=== PATIENT | male | born 1955 | race Caucasian/White ===

== ENCOUNTER 2017-07-07 09:45 | Outpatient (CLI) | payer OTHER ==
[2017-07-07] MEDS ORDERED: Iopamidol 370 76% 100 ML VIAL ONE (11:59)
== END 2017-07-07 09:46 | disposition home or self-care (01) ==
LOC: BICCT 09:45
PROVIDERS: ATTEND Obstetrics & Gynecology
DX: I71.9 Aortic aneurysm of unspecified site, without rupture (principal); I71.4 Abdominal aortic aneurysm, without rupture; I74.3 Embolism and thrombosis of arteries of the lower extremities; I70.8 Atherosclerosis of other arteries
CPT/HCPCS: 75635

== ENCOUNTER 2017-10-19 12:06 | Outpatient (CLI) | payer OTHER ==
[2017-10-19 13:08] LABS: Hemoglobin 17.3 g/dL (14.0-18.0); Mean Corpuscular HGB CONC 34.9 g/dL (32.0-36.0); Mean Corpuscular Hemoglobin 32.5 pg (27.0-31.0); Mean Corpuscular Volume 93.2 fL (78.0-98.0); Mean Platelet Volume 8.3 fL (7.4-10.4); Platelet Count 223 thou/uL (130-400); Red Blood Cell (RBC) Count 5.33 mill/uL (4.70-6.10); White Blood Cell (WBC) Count 10.4 thou/uL (4.8-10.8)
[2017-10-19 13:32] LABS: Anion Gap 12 mmol/L (10-20); BUN (Urea Nitrogen) 13 mg/dL (8.4-25.7); Calc. Creatinine Clearance 0 mL/min (70-130); Calcium 9.2 mg/dL (7.8-10.44); Carbon Dioxide 27 mmol/L (23-31); Chloride 104 mmol/L (98-107); Estimated GFR-MDRD Greater than 90; Glucose 132 mg/dL (80-115); Potassium 4.2 mmol/L (3.5-5.1); Sodium 139 mmol/L (136-145)
--- NOTE | 2017-10-20 12:06 | EKG ---
Test Reason : Blood Pressure : / mmHG Vent. Rate : 069 BPM Atrial Rate : 069 BPM P-R Int : 188 ms QRS Dur : 082 ms QT Int : 392 ms P-R-T Axes : 074 077 087 degrees QTc Int : 420 ms Poor data quality, interpretation may be adversely affected Normal sinus rhythm Possible Anterior infarct , age undetermined Abnormal ECG No previous ECGs available Confirmed by PRANEETH PRADO ([id number]) on 10/20/2017 12:05:36 PM Referred By: TIAGO Confirmed By:PRANEETH PRADO
== END 2017-10-19 12:07 | disposition home or self-care (01) ==
LOC: LABBT 12:06
PROVIDERS: ATTEND Thoracic Surgery (Cardiothoracic Vascular Surgery)
DX: Z01.818 Encounter for other preprocedural examination (principal); I71.4 Abdominal aortic aneurysm, without rupture
CPT/HCPCS: 80048; 85027; 86850; 86900; 86901; 93005; 93010

== ENCOUNTER 2017-10-20 07:27 | Inpatient (IN) | payer OTHER ==
[2017-10-20] MEDS ORDERED: CEFAZOLIN/Water 2 GM/20 ML SYRINGE ONE (09:38)
[2017-10-20] MEDS ORDERED: Heparin 10,000 UNITS/1 ML VIAL ONE (09:46)
[2017-10-20] MEDS ORDERED: Protamine Sulfate 50 MG/5 ML VIAL ONE (09:46)
[2017-10-20] MEDS ORDERED: Phenylephrine HCL 10 MG/ML VIAL ONE (09:47)
[2017-10-20] MEDS ORDERED: Fentanyl 250 MCG/5 ML VIAL ONE (09:47)
[2017-10-20] MEDS ORDERED: SUGAMMADEX SODIUM 200 MG/2 ML VIAL ONE (11:52)
[2017-10-20] MEDS ORDERED: Morphine Sulfate 2 MG/ML SYRINGE SLOW IVP PRN (12:29)
[2017-10-20] MEDS ORDERED: Ondansetron HCl/PF 4 MG/2 ML Vial IVP PRN ×2 (12:29→15:57)
[2017-10-20] MEDS ORDERED: Promethazine HCl 25 MG/ML VIAL SLOW IVP PRN (12:29)
[2017-10-20] MEDS ORDERED: Promethazine HCl 25 MG/ML VIAL IM PRN ×2 (12:29→15:57)
--- NOTE | 2017-10-20 12:42 | OP ---
DATE OF PROCEDURE: 10/20/2017 PREOPERATIVE DIAGNOSIS: Abdominal aortic aneurysm. POSTOPERATIVE DIAGNOSIS: Abdominal aortic aneurysm. PROCEDURE: Endovascular aneurysm repair with Medtronic 2-piece device with a main body left 28 x 20 x 166 and a right limb 16 x 20 x 124. SURGEON: Jose Garber M.D. PATTERN ATTENDANT: Dr. Alcantara. ESTIMATED BLOOD LOSS: 100. PROCEDURE IN DETAIL: After adequate anesthesia had been obtained, the patient was prepped and draped . Ultrasound guided puncture of the right and then left common femoral arteries were accomplished an d 5-Greek dilator and sheath were placed. Following this, the right side had ProGlides x2 placed. On the left side, initial ProGlide did not slide easily over the wire and for this reason the 5-Frenc h dilator and sheath were replaced and an Amplatz wire was placed over a Littleton catheter. Following is, the first ProGlide then was advanced over this wire. It was deployed and the Bentson wire replac ed and the second ProGlide deployed over the Bentson wire. Following this, an 11-Greek sheath was p laced on the left and on the right, the 12-Greek sheath was advanced into the abdominal aorta after heparinization with 10,000 units of heparin and good ACT level. Angiography was then obtained on the left side following which the main body was deployed just below the renal arteries. Waka was then c annulated from the right and the second limb placed. Following this, the limbs were ballooned and co mpletion angiography showed no endoleak with good renal and bilateral iliac perfusion. Following s, stiff wires were replaced with Lazo wires. On the right, ProGlide was then deployed over the wi re and after good hemostasis, the wire was removed and both ProGlides on the right deployed. On the left side, the second ProGlide was not engaged and for this reason, a third ProGlide was placed follo wing which there was good hemostasis and the ProGlides were deployed. Heparin was partially reversed with protamine and the patient had good color in both feet at the conclusion of the procedure and palma s to be taken to the recovery room with fluoroscopy of 11 minutes and 52 seconds and contrast of 54 m L.
[2017-10-20] MEDS ORDERED: SODIUM CHLORIDE IVPB SCH (12:45)
[2017-10-20] MEDS ORDERED: NICARDIPINE HCL IVPB SCH (12:45)
[2017-10-20] MEDS ORDERED: ADMIXTURE FEE IVPB SCH (12:45)
[2017-10-20] MEDS ORDERED: Fentanyl 100 MCG/2 ML VIAL ONE (13:55)
[2017-10-20] MEDS ORDERED: PROPOFOL 200 MG/20 ML VIAL ONE (14:00)
[2017-10-20] MEDS ORDERED: Heparin 10,000 UNITS/ 10 ML VIAL ONE (14:00)
[2017-10-20] MEDS ORDERED: Lidocaine 1% PF 5 ML VIAL ONE (14:00)
[2017-10-20] MEDS ORDERED: PHENYLEPHRINE-NS 100 MCG/ML 10 ML SYRINGE ONE (14:00)
[2017-10-20] MEDS ORDERED: Ondansetron HCl/PF 4 MG/2 ML Vial ONE (14:00)
[2017-10-20] MEDS ORDERED: Dextrose 5% in Water 1,000 ML IV PRN (15:57)
[2017-10-20] MEDS ORDERED: Dextrose 50% Abboject 50 ML SYRINGE SLOW IVP PRN (15:57)
[2017-10-20] MEDS ORDERED: HYDROcodone/Acetaminophen 5/325 mg Tablet PO PRN (15:57)
[2017-10-20] MEDS ORDERED: Phenylephrine 10 MG/NS 250 ML 250 ML IVPB PRN (15:57)
[2017-10-20] MEDS ORDERED: Fentanyl 100 MCG/2 ML VIAL SLOW IVP PRN ×2 (15:57)
[2017-10-20] MEDS ORDERED: Acetaminophen 325 MG TAB PO PRN (15:57)
[2017-10-20] MEDS ORDERED: Insulin Regular 300 UNITS/3 ML VIAL SC PRN (15:57)
[2017-10-20] MEDS ORDERED: niCARdipine HCl 25 MG in Sodium Chloride 0.9% 250 ML 240 ML IVPB PRN (15:57)
[2017-10-20 16:18] VITALS: BMI 26.8
[2017-10-20] MEDS ORDERED: Amlodipine 5 MG TAB PO SCH (16:45)
[2017-10-20 17:22] VITALS: BP 130/53
[2017-10-20] MEDS: Sodium Chloride 0.9% 1,000 ML IV SCH (17:22)
[2017-10-20] MEDS: HYDROcodone/Acetaminophen 5/325 mg Tablet PO PRN (18:09)
[2017-10-20] MEDS ORDERED: Atorvastatin Calcium 20 MG TAB PO SCH (21:00)
[2017-10-20] MEDS: CEFAZOLIN/Water 2 GM/20 ML SYRINGE SLOW IVP SCH (21:19)
[2017-10-20] MEDS: Pregabalin 75 MG CAP PO SCH (21:19)
[2017-10-21] MEDS: HYDROcodone/Acetaminophen 5/325 mg Tablet PO PRN (01:09)
[2017-10-21 03:51] LABS: #Basophils 0.1 thou/uL (0.0-0.2); #Lymphocytes 1.6 thou/uL (1.20-3.40); #Monocytes 1.2 thou/uL (0.11-0.59); #Neutrophils 14.1 thou/uL (1.40-6.50); %Basophils 0.3 % (0.0-1.0); %Eosinophils 0.2 % (0.0-10.0); %Lymphocytes 9.3 % (21.0-51.0); %Monocytes 7.2 % (0.0-10.0); %Neutrophils 82.9 % (42.0-75.0); Mean Corpuscular HGB CONC 33.5 g/dL (32.0-36.0); Mean Corpuscular Hemoglobin 31.8 pg (27.0-31.0); Mean Corpuscular Volume 94.7 fL (78.0-98.0); Mean Platelet Volume 8.6 fL (7.4-10.4); Platelet Count 172 thou/uL (130-400); RBC Distribution Width 12.1 % (11.5-14.5); Red Blood Cell (RBC) Count 4.42 mill/uL (4.70-6.10)
[2017-10-21 04:05] LABS: Anion Gap 12 mmol/L (10-20); BUN (Urea Nitrogen) 18 mg/dL (8.4-25.7); Calc. Creatinine Clearance 139 mL/min (70-130); Calcium 8.1 mg/dL (7.8-10.44); Carbon Dioxide 23 mmol/L (23-31); Chloride 105 mmol/L (98-107); Estimated GFR-MDRD Greater than 90; Glucose 192 mg/dL (80-115); Potassium 4.1 mmol/L (3.5-5.1); Sodium 136 mmol/L (136-145)
[2017-10-21] MEDS: Sodium Chloride 0.9% 1,000 ML IV SCH (04:42)
[2017-10-21] MEDS: CEFAZOLIN/Water 2 GM/20 ML SYRINGE SLOW IVP SCH (05:40)
[2017-10-21] MEDS ORDERED: glipiZIDE 5 MG TAB PO SCH (07:30)
[2017-10-21] MEDS: Pregabalin 75 MG CAP PO SCH (07:58)
[2017-10-21] MEDS ORDERED: Lisinopril 10 MG TAB PO SCH (09:00)
[2017-10-21 09:48] VITALS: TEMP 99
--- NOTE | 2017-10-21 12:06 | DIS ---
The patient was admitted on 10/20 where he underwent an endovascular aneurysm repair with Medtronic d evice using a main body 28 x 20 x 165 and limb 16 x 21 x 24. He had a percutaneous access and on pos t-procedure had some mild hypertension, controlled with nicardipine. He had productive cough related to his chronic smoking history and he was counseled on smoking cessation, but mostly just left it of f. His incisions were doing well and he will be discharged home on his admitting medicines. He comp lains of chronic low back pain for which he is being medicated by Dr. Delaney. Discharge and follow up instructions have been given.
== END 2017-10-21 08:30 | disposition home or self-care (01) | DRG 269 ==
LOC: EDSTATUS 08:41 → SURG A 08:43 → CCU 14:41
PROVIDERS: ADMIT Thoracic Surgery (Cardiothoracic Vascular Surgery); ATTEND Thoracic Surgery (Cardiothoracic Vascular Surgery)
PROC: 04V03DZ Restriction of Abdominal Aorta with Intraluminal Device, Percutaneous Approach (ICD-10-PCS; principal; 2017-10-20)
DX: I71.4 Abdominal aortic aneurysm, without rupture (principal)
CPT/HCPCS: 36415; 36416; 76001; 80048; 85025; 85027; 86850; 86900; 86901; 90471; 90732; 93005; 93010; 96374; C1726; C1760; C1762; C1769; C1894; G0009; J1642; J1644; J1815; J2001; J2370; J2405; J2704; J2720; J3010; J7050

== ENCOUNTER 2018-01-17 08:47 | Outpatient (CLI) | payer OTHER ==
[2018-01-17 09:12] LABS: Estimated GFR-MDRD - POC Greater than 90
[2018-01-17] MEDS ORDERED: ISOVUE-370 76%-LOCM 1 ML ONE (10:42)
--- NOTE | 2018-01-17 11:42 | CT ---
CT ABDOMEN AND PELVIS WITHOUT CONTRAST CT ANGIOGRAM ABDOMEN AND PELVIS WITH CONTRAST: HISTORY: Aneurysm repair. COMPARISON: CTA of 07/07/2017. FINDINGS: There has been interval endovascular repair of the aortic aneurysm. Using the plane of reference, th e excluded aneurysm sac measures up to 4.7 cm in AP dimension, unchanged from the comparison examinat ion. The craniocaudad length is also similar. No significant increase in size of the aneurysm. Iliac arteries are dilated, similar. No focal occlusion of the external or common iliac arteries. The renal artery origins are patent as well as the superior mesenteric artery and celiac arteries. T he liver, gallbladder, spleen, pancreas, and adrenal glands are unremarkable. The skeleton is unremarkable. Severe degenerative disk space disease at L4-5with circumferential dis k-osteophyte complex causing moderate neural foraminal and spinal canal narrowing. The same is true at L5-S1. IMPRESSION: No evidence of endoleak. No change in size of the abdominal aortic aneurysmal post repair. POS: [facility]
== END 2018-01-17 08:48 | disposition home or self-care (01) ==
LOC: BICCT 08:47
PROVIDERS: ATTEND Thoracic Surgery (Cardiothoracic Vascular Surgery)
DX: I71.4 Abdominal aortic aneurysm, without rupture (principal)
CPT/HCPCS: 74174; 82565

== ENCOUNTER 2019-03-05 18:46 | Inpatient (IN) | payer OTHER ==
[~2019-03-05 18:46] MED LIST: Iopamidol-370 76% 500 ML 1 ML ONE
[2019-03-05 19:11] LABS: #Basophils 0.1 thou/uL (0.0-0.2); #Eosinphils 0.2 thou/uL (0.0-0.7); #Lymphocytes 1.5 thou/uL (1.20-3.40); #Monocytes 0.9 thou/uL (0.11-0.59); #Neutrophils 8.5 thou/uL (1.40-6.50); %Basophils 0.6 % (0.0-1.0); %Eosinophils 2.1 % (0.0-10.0); %Lymphocytes 13.1 % (21.0-51.0); %Monocytes 8.4 % (0.0-10.0); %Neutrophils 75.9 % (42.0-75.0); Hemoglobin 15.8 g/dL (14.0-18.0); Mean Corpuscular Volume 94.1 fL (78.0-98.0); Mean Platelet Volume 8.1 fL (7.4-10.4); Platelet Count 326 thou/uL (130-400); RBC Distribution Width 12.2 % (11.5-14.5); Red Blood Cell (RBC) Count 4.95 mill/uL (4.70-6.10); White Blood Cell (WBC) Count 11.2 thou/uL (4.8-10.8)
[2019-03-05] MEDS ORDERED: methylPREDNISolone Sod Succ/PF 125 MG/2 ML VIAL ONE (19:32)
[2019-03-05 19:35] LABS: ALT (SGPT) 37 U/L (8-55); AST (SGOT) 34 U/L (5-34); Albumin 3.9 g/dL (3.4-4.8); Alkaline Phosphatase 95 U/L (40-110); Anion Gap 16 mmol/L (10-20); BUN (Urea Nitrogen) 16 mg/dL (8.4-25.7); Bilirubin, Total 0.5 mg/dL (0.2-1.2); Calc. Creatinine Clearance 0 mL/min (70-130); Calcium 8.8 mg/dL (7.8-10.44); Carbon Dioxide 27 mmol/L (23-31); Chloride 99 mmol/L (98-107); Estimated GFR-MDRD Greater than 90; Globulin 3.3 g/dL (2.4-3.5); Glucose 211 mg/dL (80-115); Potassium 4.8 mmol/L (3.5-5.1); Protein, Total 7.2 g/dL (5.8-8.1); Sodium 137 mmol/L (136-145)
[2019-03-05 20:09] LABS: CKMB 7.5 ng/mL (0-6.6)
--- NOTE | 2019-03-05 20:12 | RAD ---
FRONTAL RADIOGRAPH CHEST: Date: 03-05-19 Comparison: None. History: Shortness of breath FINDINGS: There is increased linear interstitial density and pulmonary hyperinflation suggesting COPD in the pr oper clinical setting. Cardiac silhouette is prominent. No lobar consolidation or alveolar edema. There is an asymmetric hazy area of increased density in the lateral aspect of the right upper lobe. IMPRESSION: Interstitial prominence and pulmonary hyperinflation suggesting COPD in the proper clinical setting. Vague asymmetric area of increased density noted and this may reflect scar, volume loss, or underlyin g nodule. Recommend follow up nonemergent chest CT for full assessment. Code T POS: [facility]
[2019-03-05] MEDS ORDERED: Aspirin Chewable 81 MG TAB ONE (20:13)
[2019-03-05] MEDS ORDERED: Nitroglycerin 2% Ointment 1 INCH/1 GM Packet ONE (20:13)
[2019-03-05 20:21] LABS: Magnesium 1.8 mg/dL (1.6-2.6)
--- NOTE | 2019-03-05 20:39 | CT ---
CT angiogram chest: 03/05/2019 COMPARISON: None HISTORY: Chest pain, assess for pulmonary arterial embolism TECHNIQUE: Axial CT imaging at 2.5 mm intervals through the chest with IV contrast using CT angiogram protocol. Coronal and oblique sagittal 3-D reformatted imaging obtained. FINDINGS: There is no axillary lymphadenopathy noted. Mildly prominent prevascular lymph nodes are noted measuring up to 8 mm. Mildly enlarged subcarinal l ymph node measures 1.4 cm in short axis dimension. Mild right hilar adenopathy is suspected. Limited assessment of the upper abdomen demonstrates atherosclerotic calcification of the imaged abdo marilyn aorta. There is a small right pleural effusion. No left pleural effusion. Scattered coronary arterial calcif ication is noted. There is no pulmonary arterial filling defects seen to suggest the presence of acute pulmonary arteri al embolism. There is a cavitary lesion within the right upper lobe laterally with a nodular peripheral margin. Th is cavitary lesion within the right upper lobe measures 3.3 x 2.7 cm. There is a small right upper lobe pulmonary nodule on image 42 measuring 6 mm. There is a focal area of groundglass opacity within the anterior aspect of the right upper lobe, best seen on image 56. There is increased linear interstitial density with focal anterior inferior pulmonary parenchymal opacity within the right midd le lobe which may be inflammatory in nature. There is a nodule within the posterior aspect of the right upper lobe on axial image 55 measuring 9 mm. There are pulmonary nodules within the left upper lobe, including a nodule on image 35 measuring 1.1 cm and a nodule on image 45 measuring 1.1 cm. Review of the osseous structures demonstrates no worrisome lytic or blastic bone lesion. IMPRESSION: No evidence for pulmonary arterial embolism. Irregular cavitary lesion within the right u pper lobe, which may represent cavitary malignancy. Cavitary infectious process, including tuberculosis cannot be excluded but the presence of additional bilateral pulmonary nodules makes susp icion for malignancy much higher. Small right pleural effusion. Dr. Dominguez made aware at 8:35 PM 03/05/2019. Pulmonary consultation and consideration for follow-up PET scan suggested.
[2019-03-05] MEDS ORDERED: Furosemide 40 MG/4 ML VIAL ONE (21:09)
[2019-03-05] MEDS ORDERED: Piperacillin/Tazobactam 3.375 GM VIAL ONE (21:09)
[2019-03-05] MEDS ORDERED: Nicotine 21 MG PATCH TOP SCH (22:30)
[2019-03-05 22:32] LABS: Bilirubin Negative (Negative); Blood, Urine Negative (Negative); Clarity Clear (Clear); Glucose, Urine (Dipstick) 100 mg/dL (Negative); Leukocyte Negative Leu/uL (Negative); Nitrite Negative (Negative); Protein, Urine (Dipstick) Negative (Neg-Trace); Urobilinogen Normal mg/dL (Less than 2)
[2019-03-05 22:51] LABS: Critical Call Chem Troponin I RESULT DECREASING; Troponin I 0.379 ng/mL (< 0.028)
[2019-03-05] MEDS ORDERED: Guaifenesin DM 100-10/5 ML UDCUP PO PRN (23:16)
[2019-03-05] MEDS ORDERED: Dextrose 5% in Water 1,000 ML IV PRN (23:16)
[2019-03-05] MEDS ORDERED: Bisacodyl 10 MG SUPP PR PRN (23:16)
[2019-03-05] MEDS ORDERED: HYDROcodone/Acetaminophen 5/325 mg Tablet PO PRN (23:16)
[2019-03-05] MEDS ORDERED: Dextrose 50% Abboject 50 ML SYRINGE SLOW IVP PRN (23:16)
[2019-03-05] MEDS ORDERED: Acetaminophen 325 MG TAB PO PRN (23:16)
[2019-03-05] MEDS ORDERED: Senokot S 8.6-50 MG TAB PO PRN (23:16)
[2019-03-05] MEDS ORDERED: Ondansetron PF 4 MG/2 ML Vial IVP PRN (23:16)
[2019-03-05] MEDS ORDERED: Bacteriostatic Water 30 ML VIAL FS PRN (23:23)
[2019-03-06] MEDS ORDERED: Levofloxacin 500 mg/D5W 100 ml Premix Bag ONE (00:28)
[2019-03-06] MEDS ORDERED: HumaLOG 300 UNITS/3 ML VIAL ONE (00:49)
[2019-03-06] MEDS: HumaLOG 300 UNITS/3 ML VIAL SC PRN ×2 (00:55→18:22)
--- NOTE | 2019-03-06 01:21 | HP ---
REASON FOR ADMISSION: CHF exacerbation, right lung cavitary mass for further evaluation, mild COPD exacerbation. HISTORY OF PRESENT ILLNESS: The patient gives history of shortness of breath with lower extremity edema from on. He states he had similar symptoms in December, which got resolved on its own. He has cough, but no expectoration as such. No history of hemoptysis, fever, specifically evening rise of temperature, loss of weight or appetite. The patient in fact states he has gained weight and is always hungry. No chest pain or palpitation. The patient has orthopnea. He says he had been to detention in the late 80s for 5 years or so, but has never been to detention. No history of TB in the past or exposure to the same. No prior cardiac workup including stress test in the past. PAST MEDICAL AND SURGICAL HISTORY: Diabetes mellitus type 2, hypertension, dyslipidemia, COPD, bilateral peripheral vascular disease with stents placed, endovascular AAA repair done in October of [address] Garber, shoulder and knee pain due to osteoarthritis, has chronic back pain due to bulging disk per patient. CURRENT MEDICATIONS: 1. Glipizide 10 mg twice daily. 2. Lisinopril 20 mg daily. 3. Metformin 1000 mg p.o. q.p.m. 4. Simvastatin 40 mg p.o. at bedtime. 5. Lyrica 75 mg twice daily. 6. Plavix 75 mg p.o. daily. 7. Naprosyn 375 mg p.r.n. 8. Citalopram 40 mg p.o. daily. 9. Albuterol inhaler q.6 hourly p.r.n. 10. Spiriva inhaler daily. ALLERGIES: NO KNOWN DRUG ALLERGIES. PERSONAL HISTORY: He smokes 1 pack a day. Uses marijuana occasionally. Does not abuse other drugs or alcohol. He lives with his . Ambulates using a cane. FAMILY HISTORY: Mother at the age of 81. She has had unknown cancer and had colostomy as well. Father at the age of 71. He had exposure to asbestos and had mesothelioma. CODE STATUS: Full. 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 REVIEW OF SYSTEMS: CONSTITUTIONAL: Negative for weight loss or gain, ability to conduct usual activities. SKIN: Negative for rash, itching. EYES: Negative for double vision, pain. ENT/MOUTH: Negative for nose bleeding, neck stiffness, pain, tenderness. CARDIOVASCULAR: Negative for palpitations, dyspnea on exertion, orthopnea. RESPIRATORY: Negative for shortness of breath, wheezing, cough, hemoptysis, fever or night sweats. GASTROINTESTINAL: Negative for poor appetite, abdominal pain, heartburn, nausea , vomiting, constipation, or diarrhea. GENITOURINARY: Negative for urgency, frequency, dysuria, nocturia. MUSCULOSKELETAL: Negative for pain, swelling. NEUROLOGIC/PSYCHIATRIC: Negative for anxiety, depression. ALLERGY/IMMUNOLOGIC: Negative for skin rash, bleeding tendency. PHYSICAL EXAMINATION: GENERAL: The patient is a year-old male, who is currently not in any acute distress. VITAL SIGNS: Blood pressure 149/72, pulse 76 per minute, respiratory rate 24 per minute, temperature 97.6 degrees Fahrenheit, saturating 94% on room air. NECK: Supple. No elevated JVD. HEENT: Eyes; extraocular muscles intact. Pupils reacting to light. Oral cavity, mucous membranes are dry. No exudates or congestion. CARDIOVASCULAR: S1, S2 heard. Regular rhythm. RESPIRATORY: Air entry 1+ bilateral. Rales plus in the infrascapular area. Rhonchi plus. ABDOMEN: Soft. Bowel sounds heard. No tenderness, rigidity, or guarding. EXTREMITIES: There is 2+ peripheral edema. No calf tenderness. VASCULAR: Peripheral pulses 1+ bilateral. No ischemic ulcerations or gangrene. CENTRAL NERVOUS SYSTEM: No gross focal deficits noted. NEUROLOGIC: The patient is alert, awake, oriented well. PSYCHIATRIC: The patient's mood is euthymic. No hallucinations or delusions. LABORATORY DATA: White count of 11, H and H 15 and 46, platelet count 326 with 75% neutrophils, MCV is 94. D-dimer is 1.0. Electrolytes stable. BUN 16, creatinine 0.7, serum glucose 211. Liver enzymes are within normal limits. CK-MB 7.5, troponin I is 0.38. BNP is 1115. Albumin is 3.9, lipase is 9. IMAGING: CT angio chest done shows no evidence of PE. There is irregular cavitary lesion within the right upper lobe and there is also presence of additional bilateral pulmonary nodules suspicious for malignancy. Small right pleural effusion is seen. EKG done shows normal sinus rhythm at 70 beats per minute. QRS duration is 126 milliseconds, corrected QT is 444 milliseconds. CLINICAL IMPRESSION AND PLAN: The patient will be admitted to telemetry for acute new onset congestive heart failure exacerbation, mild chronic obstructive pulmonary disease exacerbation, and a cavitary right upper lobe mass with bilateral pulmonary nodules to rule out malignancy. We will first diurese him gently with Lasix 40 mg at 6 a.m. and 2 p.m. Echo with 2D Doppler left ventricular function. Three sets of AFB sputum and a QuantiFERON TB test as well. MEDICATIONS: 1. He will be on a small dose of aspirin. 2. Lipitor 20 mg at bedtime. 3. Coreg 3.125 mg twice daily. 4. Losartan 12.5 mg daily. 5. Lantus 10 units subcu twice daily for diabetes. 6. Glipizide 10 mg twice daily along with Humalog aggressive scale. 7. We will also continue his home dose of Lyrica twice daily. 8. Celexa 40 mg daily. 9. He will be on DuoNebs q.6 hourly and a small dose of steroids and this can be rapidly discontinued in 24-36 hours. 10. Empiric Levaquin 500 mg IV daily for now. We will obtain consultation with Dr. Underwood for Pulmonology and Dr. Marcial for Cardiology. Job ID: [id number] MTDD
[2019-03-06 01:30] LABS: Critical Call Chem Troponin I RESULT DECREASING; Troponin I 0.339 ng/mL (< 0.028)
[2019-03-06 03:14] LABS: #Lymphocytes 0.5 thou/uL (1.20-3.40); #Monocytes 0.2 thou/uL (0.11-0.59); #Neutrophils 7.7 thou/uL (1.40-6.50); %Basophils 0.3 % (0.0-1.0); %Eosinophils 0.1 % (0.0-10.0); %Lymphocytes 5.5 % (21.0-51.0); %Monocytes 2.5 % (0.0-10.0); %Neutrophils 91.6 % (42.0-75.0); Hemoglobin 15.1 g/dL (14.0-18.0); Mean Corpuscular HGB CONC 34.5 g/dL (32.0-36.0); Mean Corpuscular Hemoglobin 32.1 pg (27.0-31.0); Mean Corpuscular Volume 93.1 fL (78.0-98.0); Mean Platelet Volume 8.4 fL (7.4-10.4); Platelet Count 320 thou/uL (130-400); RBC Distribution Width 12.1 % (11.5-14.5); White Blood Cell (WBC) Count 8.4 thou/uL (4.8-10.8)
[2019-03-06 03:49] LABS: Anion Gap 16 mmol/L (10-20); BUN (Urea Nitrogen) 16 mg/dL (8.4-25.7); Calc. Creatinine Clearance 0 mL/min (70-130); Calcium 9.3 mg/dL (7.8-10.44); Carbon Dioxide 31 mmol/L (23-31); Chloride 95 mmol/L (98-107); Estimated GFR-MDRD 83; Glucose 305 mg/dL (80-115); Potassium 3.8 mmol/L (3.5-5.1); Sodium 138 mmol/L (136-145)
[2019-03-06 07:22] VITALS: BMI 30.6
--- NOTE | 2019-03-06 07:41 | PDOC.HOSPP ---
- Subjective Encounter Date: 03/06/19 Encounter Time: 16:00 Subjective: Patient breathing better. No chest pain. - Objective Vital Signs & Weight: Vital Signs (12 hours) Temp Pulse Resp BP Pulse Ox 03/06/19 06:40 97.8 F 83 20 157/72 H 95 03/06/19 01:44 69 16 92 L Weight Weight 207 lb 6.4 oz Result Diagrams: 03/06/19 03:01 03/06/19 03:01 Additional Labs: Accuchecks 03/06/19 00:32 POC Glucose 270 H Hospitalist ROS - Review of Systems Constitutional: denies: fever, chills Respiratory: reports: shortness of breath. denies: cough Cardiovascular: denies: chest pain, palpitations Gastrointestinal: denies: nausea, vomiting, abdominal pain - Medication Medications: Active Medications Generic Name Dose Route Start Last Admin Trade Name Freq PRN Reason Stop Dose Admin Albuterol/Ipratropium 3 ml 03/06/19 01:00 03/06/19 01:44 Duoneb NEB 3 ml [id number] HARMAN Administration Levofloxacin 500 mg/ Device 100 mls @ 100 mls/hr 03/05/19 23:59 03/06/19 00: 29 IVPB 100 mls [id number] HARMAN Administration Insulin Human Lispro 0 units 03/05/19 23:16 03/06/19 00:55 Humalog SC 3 unit .BEDTIME SLIDING SC PRN Administration Bedtime Correctional Scale - Exam General Appearance: NAD Heart: RRR, no murmur, no gallops Respiratory: no wheezes, no rales, normal chest expansion, no tachypnea Respiratory - other findings: occ course breath sounds in mid lungs Gastrointestinal: soft, non-tender, non-distended Psychiatric: normal affect, normal behavior, A&O x 3 Hosp A/P (1) Acute congestive heart failure Code(s): I50.9 - HEART FAILURE, UNSPECIFIED Status: Acute Qualifiers: Heart failure type: systolic Qualified Code(s): I50.21 - Acute systolic ( congestive) heart failure Plan: EF 45-50% (2) COPD with exacerbation Code(s): J44.1 - CHRONIC OBSTRUCTIVE PULMONARY DISEASE W (ACUTE) EXACERBATION Status: Acute (3) Cavitary lesion of lung Code(s): J98.4 - OTHER DISORDERS OF LUNG Status: Resolved (4) Pulmonary nodules Status: Acute (5) Diabetes mellitus type 2, insulin dependent Code(s): E11.9 - TYPE 2 DIABETES MELLITUS WITHOUT COMPLICATIONS; Z79.4 - HALF-WAY (CURRENT) USE OF INSULIN Status: Chronic (6) Hyperlipidemia Code(s): E78.5 - HYPERLIPIDEMIA, UNSPECIFIED Status: Chronic (7) Hypertension Code(s): I10 - ESSENTIAL (PRIMARY) HYPERTENSION Status: Chronic (8) PVD (peripheral vascular disease) Code(s): I73.9 - PERIPHERAL VASCULAR DISEASE, UNSPECIFIED Status: Chronic (9) Tobacco abuse Code(s): Z72.0 - TOBACCO USE Status: Chronic (10) History of AAA (abdominal aortic aneurysm) repair Code(s): Z98.890 - OTHER SPECIFIED POSTPROCEDURAL STATES Status: Chronic - Plan new onset CHF- ECHO with EF 45-50%, cardiology consulted, started on carvedilol , losartan, diuresing with lasix Elevated troponins- NSTEMI vs Type 2 AMI from CHF exacerbation, on ASA COPD exacerbation- on low dose steroids and duonebs Cavitary lung lesion with multiple nodules, concerning for cancer, checking for TB, pulmonology consulted
[2019-03-06] MEDS ORDERED: Losartan 25 MG TAB PO SCH (09:00)
[2019-03-06] MEDS ORDERED: Carvedilol 3.125 MG TAB PO SCH (09:00)
[2019-03-06] MEDS: Aspirin Chewable 81 MG TAB PO SCH (09:21)
[2019-03-06] MEDS: Citalopram 20 MG TAB PO SCH (09:21)
[2019-03-06] MEDS: Famotidine 20 MG TAB PO SCH ×2 (09:21→20:27)
[2019-03-06] MEDS: glipiZIDE 5 MG TAB PO SCH ×2 (09:21→20:32)
[2019-03-06] MEDS: Enoxaparin Sodium 40 MG/0.4 ML SYRINGE SC SCH (09:22)
[2019-03-06] MEDS: Pregabalin 75 MG CAP PO SCH ×2 (09:22→20:27)
[2019-03-06] MEDS: methylPREDNISolone Sod Succ 40 MG VIAL IVP SCH ×2 (09:22→15:47)
[2019-03-06] MEDS: Furosemide 40 MG/4 ML VIAL SLOW IVP SCH ×2 (09:22→15:47)
[2019-03-06] MEDS: Insulin Glargine 10 UNITS in Pre-Filled Syringe 1 EACH SC SCH ×2 (11:34→20:25)
[2019-03-06] MEDS: Sodium Chloride 3% (15 ML) NEB NEB SCH (18:42)
[2019-03-06] MEDS ORDERED: Potassium Chloride 20 MEQ TAB PO SCH (19:00)
--- NOTE | 2019-03-06 19:03 | CON ---
DATE OF CONSULTATION: 03/06/2019 SERVICE: Pulmonary Medicine. REASON FOR CONSULT: Abnormal chest x-ray. HISTORY OF PRESENT ILLNESS: The patient is a 64-year-old white male with past medical history significant for tobacco abuse. He was also incarcerated at one point remotely. He has never had a known diagnosis of pneumonia or a lung infection here recently. He has never had tuberculosis personally. He does not know of anybody that has had tuberculosis in his history. Either way, he was in his usual state of health up until about 3 months ago. At that point, he started having episodes of shortness of breath. He will wake up in the middle of the night choking or gasping and have to sit up on the side of the bed for an hour to catch his breath. As such, he lies back down, he feels short winded again. This seems to be a little worse whenever he has lower extremity swelling. He has had lower extremity swelling now on 3 separate occasions. Each time, these incidents seem to resolve on their own. This has been his usual state for the last couple of months. Up until 3 days prior to admission, he started having increasing cough, congestion, and sputum production. He was bringing up white phlegm. Occasionally, it has little yellow to it. He was coughing up streaks of blood. He does not endorse any night sweats or significant weight loss. He has actually gained weight. Because of his breathing difficulties, he presented to the Emergency Department, where a chest x-ray prompted a CTA of the chest. Since being in the hospital, he feels like his breathing has improved slightly. PAST MEDICAL HISTORY: 1. Type 2 diabetes mellitus. 2. Hypertension. 3. Dyslipidemia. 4. COPD. 5. Peripheral vascular disease. 6. Chronic back pain. PAST SURGICAL HISTORY: 1. Repair of abdominal aortic aneurysm. 2. Percutaneous lower extremity arterial stents. ALLERGIES: NO KNOWN DRUG ALLERGIES. MEDICATIONS: List of the patient's inpatient medications were reviewed. I made several updates. SOCIAL HISTORY: Smokes a pack on a daily basis. He has a greater than 40 pack- year history of smoking. Denies any significant alcohol or illicit drugs other than occasional marijuana. He lives with his . He uses a cane for ambulation. FAMILY HISTORY: Positive for mesothelioma. REVIEW OF SYSTEMS: General, head, ears, eyes, nose, throat, cardiovascular, respiratory, GI, , musculoskeletal, neurologic, and skin are negative except as mentioned in the HPI. PHYSICAL EXAMINATION: VITAL SIGNS: Afebrile, pulse 68, blood pressure 135/60, respirations 20, and saturation 94%, currently on room air. GENERAL: The patient is awake and alert, in no apparent distress. LUNGS: Very reduced air entry with a prolonged expiratory phase. I do not appreciate wheezing. Crackles are present dependently. HEART: Normal rate. Regular. ABDOMEN: Soft, nontender, and nondistended. Bowel sounds are positive. MUSCULOSKELETAL: No cyanosis or clubbing. There is no pitting in the bilateral lower extremities. NEUROLOGIC: Grossly nonfocal. LABORATORY DATA: WBC 8.4, hemoglobin 15.1, and platelets 320,000. Neutrophil count is 92% after steroids, but was close to the normal range on presentation. D- dimer 1.03. Basic metabolic profile is completely unremarkable. Creatinine 0.92. Troponin is downtrending to 0.33. TSH falls within the normal limits. BNP 1100. Liver function studies are unremarkable. Lipase is normal. Magnesium 1.8. Urinalysis is negative. Specifically, there are no red blood cells present. IMAGIN. Chest x-ray demonstrates hyperexpanded lungs. Slight flattening of the diaphragm is present. Cardiac silhouette is generous. Right upper lobe infiltrate/ cavity is present. 2. CTA of the chest demonstrates no evidence of a pulmonary embolism. There is scattered pulmonary nodules scattered throughout bilateral lung hernandez. There is a pulmonary cavity with a thick wall present in the right upper lobe. 3. Transthoracic echocardiogram demonstrates an ejection fraction of 45%. No significant valvular abnormalities are identified. ASSESSMENT: 1. Acute hypoxic respiratory failure. 2. Acute on chronic systolic heart failure. 3. Chronic obstructive pulmonary disease with acute exacerbation. 4. Pulmonary cavity. DISCUSSION AND PLAN: It really does not smack or look much like tuberculosis. That being said, we will go ahead and keep him on isolation precautions. We will collect three samples. If these are negative, we will likely move forward with a bronchoscopy as early as Wednesday. I will continue our broad-spectrum antibiotics. Steroids can be de-escalated to p.o. medications as he is tolerating p.o. just fine. Nebulized medications will be considered q.6 hours. We will continue to diurese him until he arrives to euvolemia, which he is fast approaching. As such, I will de-escalate his Lasix to once daily. Rheumatoid factor, an ANCAs will be added to tomorrow morning's laboratories to round out our pulmonary cavity workup. My biggest concern is that we are dealing with a malignant process. If the bronchoscopy does not yield through full pathology, a transcutaneous biopsy will need to be considered though he will be a high risk of a pneumothorax and/or BP fistula. As such, I think that a PET scan would be reasonable option for him in the outpatient setting. 70 minutes have been devoted to this patient in various activities. I personally reviewed all imaging studies and laboratory data noted within this document. For fifty percent of this time, I was interacting with the patient at the bedside or coordinating care with the care team. For the remainder of the time I was immediately available to the patient in the hospital unit. Job ID: [id number] MTDD
[2019-03-06] MEDS: Atorvastatin Calcium 20 MG TAB PO SCH (20:28)
[2019-03-06] MEDS: Lisinopril 5 MG TAB PO SCH (20:28)
--- NOTE | 2019-03-07 00:38 | CON ---
DATE OF CONSULTATION: 03/06/2019 REASON FOR CONSULTATION: Congestive heart failure. HISTORY OF PRESENT ILLNESS: Mr. Maxim Webster is a 64-year-old gentleman who comes to the hospital with progressive trouble breathing. He was found to have COPD, wheezing, and also found to have an increased BNP. He says looking back he has had occasional tightness in his chest, but that has been infrequent. The main symptom has been shortness of breath. He has received inhaled bronchodilators here. He has received medicines for congestive heart failure and he is beginning to really feel much better. PAST MEDICAL HISTORY: He has a history of abdominal aortic aneurysm, treated percutaneously successfully by Dr. Garber in October 2017. The patient had endovascular aneurysm repair with [employer] two-piece device with main body 28 x 20 x 166 and the right limb is 16 x 20 x 124. The patient has a long history of smoking. He said he started smoking at age 7. Chest x-ray is also abnormal. He had a chest CT that will be outlined below. MEDICATIONS: The patient currently has been started on very low doses of carvedilol as well as losartan. ALLERGIES: NONE KNOWN. SOCIAL HISTORY: Continued to smoke up to this hospitalization started at age 7. REVIEW OF SYSTEMS: CONSTITUTIONAL: Positive for weakness, fatigue. VISION: No changes. HEARING: No changes. PULMONARY: Positive for shortness of breath and wheezing. CARDIAC: Shortness of breath, occasional angina. GASTROINTESTINAL: No nausea, vomiting, or diarrhea. SKIN: No rashes. NEUROLOGIC: No unilateral weakness or numbness. PSYCHIATRIC: No unusual depression or anxiety. PHYSICAL EXAMINATION: GENERAL: This is a pleasant 64-year-old gentleman resting comfortably. VITAL SIGNS: Blood pressure 135/60, pulse 68 and regular. HEENT: Eyes; sclerae nonicteric. Mouth, mucous membranes moist. NECK: Supple. No lymphadenopathy. LUNGS: Clear. No wheezing posteriorly, but I do hear wheezing anteriorly. CARDIAC: Normal S1, normal S2. There is no murmur, rub, or gallop. ABDOMEN: Soft and nontender. No hepatosplenomegaly. EXTREMITIES: Warm and dry. No clubbing or cyanosis. There is no edema. PERTINENT LABORATORY DATA: The patient had a troponin level of 0.339, followed by 0.379, followed by 0.381. There is no peak and trough that correlates more within a non-ST elevation infarction type 2, demand ischemia. Echocardiogram, technically suboptimal due to his COPD, but it looks like the ejection fraction is about 45% to 50% with mild apical hypokinesis. EKG, intraventricular conduction delay with some nonspecific ST and T-wave changes. Chest CT revealed pre-vascular lymph nodes up to 8 mm, some mild right hilar adenopathy, suspected cavitary lesion noted, right upper lobe. ASSESSMENT: 1. Abnormal chest CT as outlined above. 2. Chronic obstructive pulmonary disease. 3. Non-ST elevation myocardial infarction, demand ischemia. 4. Continued smoking, started at age 7. 5. Diabetes. 6. Peripheral vascular disease with previous abdominal aortic aneurysm. 7. Congestive heart failure, systolic, improving. 8. Hypertension. PLAN: 1. Increase ELROY inhibitor to 5 mg twice a day. 2. Increase carvedilol. 3. Continue diuretics. 4. Continue aspirin. 5. Check lipid profile tomorrow, should be treated medically as the initial strategy. Further evaluation is being done of the cavitary mass in his lung. Job ID: [id number]
[2019-03-07 05:11] LABS: Anion Gap 11 mmol/L (10-20); BUN (Urea Nitrogen) 22 mg/dL (8.4-25.7); Calc. Creatinine Clearance 120 mL/min (70-130); Calcium 8.8 mg/dL (7.8-10.44); Carbon Dioxide 31 mmol/L (23-31); Cardiac Risk 3.3 (Less than 4.5); Chloride 97 mmol/L (98-107); Cholesterol 95 mg/dl (< 200 Desired); Estimated GFR-MDRD Greater than 90; Glucose 184 mg/dL (80-115); HDL Cholesterol 29 mg/dL (>60 Neg Risk); LDL Cholesterol, Calculated 49 mg/dL; Potassium 4.4 mmol/L (3.5-5.1); Sodium 135 mmol/L (136-145); Triglycerides 86 mg/dL (Less than 150)
[2019-03-07 05:16] LABS: Troponin I 0.385 ng/mL (< 0.028)
[2019-03-07 05:30] LABS: HIV (1/2) Antibody/Antigen Non-Reactive (NonReactive); HIV 1/2 INDEX 0.18 S/CO (<1.00)
[2019-03-07] MEDS: Furosemide 40 MG/4 ML VIAL SLOW IVP SCH (05:39)
[2019-03-07] MEDS: Sodium Chloride 3% (15 ML) NEB NEB SCH ×2 (06:49→18:41)
[2019-03-07] MEDS: predniSONE 20 MG TAB PO SCH (07:45)
--- NOTE | 2019-03-07 08:01 | PDOC.HOSPP ---
- Subjective Encounter Date: 03/07/19 Encounter Time: 14:00 Subjective: Patient without fever or chills, breathing ok. No coughing fits since early this morning. - Objective Vital Signs & Weight: Vital Signs (12 hours) Temp Pulse Resp BP BP Pulse Ox 03/07/19 07:43 97.8 F 61 18 112/56 L 93 L 03/07/19 06:52 78 16 94 L 03/07/19 06:49 78 16 94 L 03/07/19 03:32 97.7 F 84 20 135/68 93 L 03/06/19 23:56 98.9 F 68 18 140/67 92 L 03/06/19 21:30 94 L 03/06/19 21:15 98.7 F 66 18 114/56 L 94 L 03/06/19 20:28 73 124/56 L 03/06/19 20:19 98.0 F 70 17 124/56 L 93 L 03/06/19 20:00 93 L Weight Weight 204 lb 12.951 oz I&O: 03/06/19 03/07/19 03/08/19 06:59 06:59 06:59 Intake Total 1420 Output Total 2600 Balance -1180 Result Diagrams: 03/06/19 03:01 03/07/19 04:31 Additional Labs: Accuchecks 03/07/19 03/06/19 03/06/19 06:48 20:25 16:54 POC Glucose 158 H 181 H 261 H 03/06/19 11:51 POC Glucose 240 H Hospitalist ROS - Review of Systems Constitutional: denies: fever, chills Respiratory: reports: cough. denies: shortness of breath Cardiovascular: denies: chest pain, palpitations, orthopnea Gastrointestinal: denies: nausea, vomiting, abdominal pain - Medication Medications: Active Medications Generic Name Dose Route Start Last Admin Trade Name Freq PRN Reason Stop Dose Admin Albuterol/Ipratropium 3 ml 03/06/19 01:00 03/07/19 06:52 Duoneb NEB 3 ml [id number] HARMAN Administration Aspirin 81 mg 03/06/19 09:00 03/06/19 09:21 Aspirin Chewable PO 81 mg DAILY HARMAN Administration Atorvastatin Calcium 20 mg 03/06/19 21:00 03/06/19 20:28 Lipitor PO 20 mg HS HARMAN Administration Citalopram Hydrobromide 40 mg 03/06/19 09:00 03/06/19 09:21 Celexa PO 40 mg DAILY HARMAN Administration Enoxaparin Sodium 40 mg 03/06/19 09:00 03/06/19 09:22 Lovenox SC 40 mg 0900 HARMAN Administration Famotidine 20 mg 03/06/19 09:00 03/06/19 20:27 Pepcid PO 20 mg BID HARMAN Administration Furosemide 40 mg 03/07/19 06:00 03/07/19 05:39 Lasix SLOW IVP 40 mg 0600 HARMAN Administration Glipizide 10 mg 03/06/19 09:00 03/06/19 20:32 Glucotrol PO 10 mg BID [facility]MAN Administration Guaifenesin/Dextromethorphan 15 ml 03/05/19 23:16 03/07/19 03:41 Robitussin Dm PO 15 ml Q4H PRN Administration Cough Insulin Glargine 10 units/ 0.1 mls @ 0 mls/hr 03/06/19 09:00 03/06/19 20:25 Miscellaneous Medication SC 0.1 mls BID [facility]MAN Administration Levofloxacin 500 mg/ Device 100 mls @ 100 mls/hr 03/05/19 23:59 03/07/19 01: 30 IVPB 100 mls Q24HR HARMAN Administration Insulin Human Lispro 0 units 03/05/19 23:16 03/06/19 18:22 Humalog SC 9 unit .AGGRESSIVE SLIDING PRN Administration Aggressive Correctional Scale Insulin Human Lispro 0 units 03/05/19 23:16 03/06/19 00:55 Humalog SC 3 unit .BEDTIME SLIDING SC PRN Administration Bedtime Correctional Scale Lisinopril 5 mg 03/06/19 21:00 03/06/19 20:28 Zestril PO 5 mg BID HARMAN Administration Prednisone 40 mg 03/07/19 08:00 03/07/19 07:45 Prednisone PO 03/11/19 08:01 40 mg QAM-WM HARMAN Administration Pregabalin 75 mg 03/06/19 09:00 03/06/19 20:27 Lyrica PO 75 mg BID HARMAN Administration Sodium Chloride 15 ml 03/06/19 21:00 03/07/19 06:49 Sodium Chloride 3% NEB 15 ml BID HARMAN Administration - Exam General Appearance: NAD, awake alert Eye: anicteric sclera ENT: moist mucosa Heart: RRR, no murmur, no gallops, no rubs Respiratory: no tachypnea Respiratory - other findings: occ coarse breath sounds, mild decreased breath sounds throughout Gastrointestinal: soft, non-tender, non-distended, normal bowel sounds Psychiatric: normal affect, normal behavior, A&O x 3 Hosp A/P (1) Acute congestive heart failure Code(s): I50.9 - HEART FAILURE, UNSPECIFIED Status: Acute Qualifiers: Heart failure type: systolic Qualified Code(s): I50.21 - Acute systolic ( congestive) heart failure (2) COPD with exacerbation Code(s): J44.1 - CHRONIC OBSTRUCTIVE PULMONARY DISEASE W (ACUTE) EXACERBATION Status: Acute (3) Cavitary lesion of lung Code(s): J98.4 - OTHER DISORDERS OF LUNG Status: Resolved (4) Pulmonary nodules Status: Acute (5) Diabetes mellitus type 2, insulin dependent Code(s): E11.9 - TYPE 2 DIABETES MELLITUS WITHOUT COMPLICATIONS; Z79.4 - TIE [employer]RIER (CURRENT) USE OF INSULIN Status: Chronic (6) Hyperlipidemia Code(s): E78.5 - HYPERLIPIDEMIA, UNSPECIFIED Status: Chronic (7) Hypertension Code(s): I10 - ESSENTIAL (PRIMARY) HYPERTENSION Status: Chronic (8) PVD (peripheral vascular disease) Code(s): I73.9 - PERIPHERAL VASCULAR DISEASE, UNSPECIFIED Status: Chronic (9) Tobacco abuse Code(s): Z72.0 - TOBACCO USE Status: Chronic (10) History of AAA (abdominal aortic aneurysm) repair Code(s): Z98.890 - OTHER SPECIFIED POSTPROCEDURAL STATES Status: Chronic - Plan new onset CHF- ECHO with EF 45-50%, Dr. Marcial consulted, started on carvedilol , lisinopril BID, diuresing with lasix Elevated troponins- NSTEMI vs Type 2 AMI from CHF exacerbation, on ASA COPD exacerbation- on low dose steroids and duonebs Cavitary lung lesion with multiple nodules, concerning for cancer, checking for TB, Dr. Schulz plans bronch on Wed or Th, if not diagnostic perhaps PET scan as outpatient as transcutaneous bx risky for PTX or fistula
[2019-03-07] MEDS ORDERED: Sodium Chloride 0.9% 10 ML ONE (08:24)
[2019-03-07] MEDS: Famotidine 20 MG TAB PO SCH ×2 (09:38→20:53)
[2019-03-07] MEDS: Citalopram 20 MG TAB PO SCH (09:38)
[2019-03-07] MEDS: glipiZIDE 5 MG TAB PO SCH ×2 (09:38→20:53)
[2019-03-07] MEDS: Pregabalin 75 MG CAP PO SCH ×2 (09:39→20:53)
[2019-03-07] MEDS: Aspirin Chewable 81 MG TAB PO SCH (09:39)
[2019-03-07] MEDS: Lisinopril 5 MG TAB PO SCH ×2 (09:39→20:54)
[2019-03-07] MEDS: Carvedilol 3.125 MG TAB PO SCH ×2 (09:39→20:54)
[2019-03-07] MEDS: Insulin Glargine 10 UNITS in Pre-Filled Syringe 1 EACH SC SCH ×2 (09:41→20:54)
[2019-03-07] MEDS: Enoxaparin Sodium 40 MG/0.4 ML SYRINGE SC SCH (09:41)
[2019-03-07] MEDS: HumaLOG 300 UNITS/3 ML VIAL SC PRN ×3 (11:26→20:55)
--- NOTE | 2019-03-07 13:31 | PRG ---
DATE OF SERVICE: 03/07/2019 SUBJECTIVE: He is awake, alert, has no discomfort. He says he is producing very minimal sputum at the time. OBJECTIVE: VITAL SIGNS: On exam, temperature 98.4, pulse 70, respirations 16, O2 saturation 98% 2 L, blood pressure 116/56. HEENT: Unremarkable. NECK: No adenopathy or JVD. LUNGS: Clear to auscultation. CARDIAC: S1 and S2, regular. ABDOMEN: Soft. EXTREMITIES: No edema. LABORATORY DATA: Sodium 135, potassium 4.4, BUN 22, creatinine 0.8, glucose 184. The sputum for AFB is pending. ASSESSMENT: Right upper lobe cavitary lesion. Infection versus TB versus malignancy. PLAN: Continuing IV antibiotics. We are awaiting results of sputum. If sputum is positive, then bronchoscopy will not be performed. If sputum smear is negative, then consider bronchoscopy or Wednesday. Job ID: [id number]
--- NOTE | 2019-03-07 16:12 | PDOC.CPN ---
- Subjective Date: 03/07/19 Time: 16:18 Interval history: The pt seen and examined. No overnight events. No cardiac complaints. - Objective Allergies/Adverse Reactions: Allergies Allergy/AdvReac Type Severity Reaction Status Date / Time No Known Allergies Allergy Verified 10/19/17 09:27 Visit Medications: Current Medications Acetaminophen (Tylenol) 650 mg PO Q4H PRN PRN Reason: Headache/Fever/Mild Pain (1-3) Hydrocodone Bitart/Acetaminophen ([place] 5/325) 1 tab PO Q4H PRN PRN Reason: Moderate Pain (4-6) Albuterol/Ipratropium (Duoneb) 3 ml NEB [id number] [facility] Last Admin: 03/07/19 13:20 Dose: 3 ml Aspirin (Aspirin Chewable) 81 mg PO DAILY [facility] Last Admin: 03/07/19 09:39 Dose: 81 mg Atorvastatin Calcium (Lipitor) 20 mg PO HS [facility] Last Admin: 03/06/19 20:28 Dose: 20 mg Bisacodyl (Dulcolax) 10 mg UT DAILYPRN PRN PRN Reason: Constipation Carvedilol (Coreg) 6.25 mg PO BID [facility] Last Admin: 03/07/19 09:39 Dose: 6.25 mg Citalopram Hydrobromide (Celexa) 40 mg PO DAILY [facility] Last Admin: 03/07/19 09:38 Dose: 40 mg Dextrose/Water (Dextrose 50%) 25 gm SLOW IVP PRN PRN PRN Reason: Hypoglycemia Enoxaparin Sodium (Lovenox) 40 mg SC 0900 [facility] Last Admin: 03/07/19 09:41 Dose: 40 mg Famotidine (Pepcid) 20 mg PO BID [facility] Last Admin: 03/07/19 09:38 Dose: 20 mg Furosemide (Lasix) 40 mg SLOW IVP 0600 [facility] Last Admin: 03/07/19 05:39 Dose: 40 mg Glipizide (Glucotrol) 10 mg PO BID [facility] Last Admin: 03/07/19 09:38 Dose: 10 mg Glucagon (Glucagon) 1 mg IM PRN PRN PRN Reason: Hypoglycemia Guaifenesin/Dextromethorphan (Robitussin Dm) 15 ml PO Q4H PRN PRN Reason: Cough Last Admin: 03/07/19 03:41 Dose: 15 ml Dextrose/Water (D5w) 1,000 mls @ 0 mls/hr IV .Q0M PRN PRN Reason: Hypoglycemia Insulin Glargine 10 units/ (Miscellaneous Medication) 0.1 mls @ 0 mls/hr SC BID [facility] Last Admin: 03/07/19 09:41 Dose: 0.1 mls Levofloxacin 500 mg/ Device 100 mls @ 100 mls/hr IVPB Q24HR [facility] Last Admin: 03/07/19 01:30 Dose: 100 mls Insulin Human Lispro (Humalog) 0 units SC .AGGRESSIVE SLIDING PRN PRN Reason: Aggressive Correctional Scale Last Admin: 03/07/19 11:26 Dose: 6 unit Insulin Human Lispro (Humalog) 0 units SC .BEDTIME SLIDING SC PRN PRN Reason: Bedtime Correctional Scale Last Admin: 03/06/19 00:55 Dose: 3 unit Lisinopril (Zestril) 5 mg PO BID [facility] Last Admin: 03/07/19 09:39 Dose: 5 mg Ondansetron HCl (Zofran) 4 mg IVP Q6H PRN PRN Reason: Nausea/Vomiting Prednisone (Prednisone) 40 mg PO QAM-[facility] Stop: 03/11/19 08:01 Last Admin: 03/07/19 07:45 Dose: 40 mg Pregabalin (Lyrica) 75 mg PO BID [facility] Last Admin: 03/07/19 09:39 Dose: 75 mg Senna/Docusate Sodium (Senokot S) 2 tab PO BID PRN PRN Reason: Constipation Sodium Chloride (Sodium Chloride 3%) 15 ml NEB BID [facility] Last Admin: 03/07/19 06:49 Dose: 15 ml Sterile Water (Bacteriostatic Water) 1 ml FS PRN PRN PRN Reason: RECONSTITUTION Vital Signs & Weight: Vital Signs Temp Pulse Resp BP BP Pulse Ox 03/07/19 15:03 122/57 L 03/07/19 13:20 72 16 93 L 03/07/19 11:12 98.4 F 70 16 116/56 L 98 03/07/19 07:43 97.8 F 61 18 112/56 L 93 L 03/07/19 06:52 78 16 94 L 03/07/19 06:49 78 16 94 L Weight 204 lb 12.951 oz - Physical Exam General: alert & oriented x3 HEENT: mucus membranes moist Neck: supple neck Cardiac: regular rate and rhythm, S1/S2 Lungs: decreased breath sounds, wheezes - Labs Result Diagrams: 03/06/19 03:01 03/07/19 04:31 Troponin/CKMB CK-MB (CK-2) 7.5 ng/mL (0-6.6) H* 03/05/19 19:11 Troponin I 0.385 ng/mL (< 0.028) H* 03/07/19 04:31 - Telemetry Sinus rhythms and dysrhythmias: sinus rhythm - Assessment/Plan Assessment/Plan: 1. Acute on Chronic Systolic HF with EF 45-50% - stable with coreg, ELROY, and Lasix 2. Elevated trop 2/2 demand ischemia - stable 3. COPD with exacerbation - stable with NC 4. Hx of AAA in 10/2017 5. Pulmonary nodules in Rt upper lobe 6. HTN - stable with current med 7. DM type 2 - 8. Tobacco abuse - the pt is willing to quit smoking MAR reviewed * Echo in 02/2019 with EF 45-50%,mild Mr, trace TR, and mildly hypokinetic [place] Pt. seen and eval. by me. I agree with the A/P by the [employer]. Chest : decr. BS throughout. RRR, mild ankle edema. antoniomays
[2019-03-07] MEDS: Atorvastatin Calcium 20 MG TAB PO SCH (20:53)
[2019-03-08] MEDS: Furosemide 40 MG/4 ML VIAL SLOW IVP SCH (06:15)
[2019-03-08] MEDS: Sodium Chloride 3% (15 ML) NEB NEB SCH ×2 (06:41→19:54)
[2019-03-08 07:03] LABS: #Basophils 0.1 thou/uL (0.0-0.2); #Eosinphils 0.2 thou/uL (0.0-0.7); #Lymphocytes 2.6 thou/uL (1.20-3.40); #Neutrophils 7.2 thou/uL (1.40-6.50); %Basophils 0.7 % (0.0-1.0); %Eosinophils 1.5 % (0.0-10.0); %Lymphocytes 23.9 % (21.0-51.0); %Monocytes 8.7 % (0.0-10.0); %Neutrophils 65.1 % (42.0-75.0); Hemoglobin 14.8 g/dL (14.0-18.0); Mean Corpuscular HGB CONC 31.6 g/dL (32.0-36.0); Mean Corpuscular Hemoglobin 30.5 pg (27.0-31.0); Mean Corpuscular Volume 96.3 fL (78.0-98.0); Mean Platelet Volume 8.8 fL (7.4-10.4); Platelet Count 290 thou/uL (130-400); Red Blood Cell (RBC) Count 4.84 mill/uL (4.70-6.10)
[2019-03-08 07:20] LABS: Anion Gap 11 mmol/L (10-20); BUN (Urea Nitrogen) 24 mg/dL (8.4-25.7); Calc. Creatinine Clearance 110 mL/min (70-130); Calcium 8.9 mg/dL (7.8-10.44); Carbon Dioxide 36 mmol/L (23-31); Chloride 96 mmol/L (98-107); Estimated GFR-MDRD 85; Glucose 202 mg/dL (80-115); Potassium 3.9 mmol/L (3.5-5.1); Sodium 139 mmol/L (136-145)
[2019-03-08 07:32] LABS: Troponin I 0.389 ng/mL (< 0.028)
--- NOTE | 2019-03-08 07:49 | PDOC.HOSPP ---
- Subjective Encounter Date: 03/08/19 Encounter Time: 10:50 Subjective: Patient with improved SOB. No fever or other complaints. Not much cough. - Objective Vital Signs & Weight: Vital Signs (12 hours) Temp Pulse Resp BP Pulse Ox 03/08/19 06:40 72 16 03/08/19 03:05 98.8 F 61 18 98/54 L 94 L 03/08/19 00:18 71 16 94 L 03/07/19 20:54 81 Weight Weight 203 lb 4.259 oz I&O: 03/07/19 03/08/19 03/09/19 06:59 06:59 06:59 Intake Total 1420 Output Total 2600 Balance -1180 Result Diagrams: 03/08/19 06:48 03/08/19 06:48 Additional Labs: Accuchecks 03/08/19 03/07/19 03/07/19 05:57 19:51 16:58 POC Glucose 272 H 232 H 199 H 03/07/19 10:38 POC Glucose 225 H Hospitalist ROS - Review of Systems Constitutional: denies: fever, chills Respiratory: reports: cough. denies: shortness of breath Cardiovascular: denies: chest pain, palpitations, orthopnea Gastrointestinal: denies: nausea, vomiting, abdominal pain - Medication Medications: Active Medications Generic Name Dose Route Start Last Admin Trade Name Freq PRN Reason Stop Dose Admin Albuterol/Ipratropium 3 ml 03/06/19 01:00 03/08/19 06:40 Duoneb NEB 3 ml [id number] HARMAN Administration Aspirin 81 mg 03/06/19 09:00 03/07/19 09:39 Aspirin Chewable PO 81 mg DAILY HARMAN Administration Atorvastatin Calcium 20 mg 03/06/19 21:00 03/07/19 20:53 Lipitor PO 20 mg HS HARMAN Administration Carvedilol 6.25 mg 03/07/19 09:00 03/07/19 20:54 Coreg PO 6.25 mg BID HARMAN Administration Citalopram Hydrobromide 40 mg 03/06/19 09:00 03/07/19 09:38 Celexa PO 40 mg DAILY HARMAN Administration Enoxaparin Sodium 40 mg 03/06/19 09:00 03/07/19 09:41 Lovenox SC 40 mg 0900 HARMAN Administration Famotidine 20 mg 03/06/19 09:00 03/07/19 20:53 Pepcid PO 20 mg BID HARMAN Administration Furosemide 40 mg 03/07/19 06:00 03/08/19 06:15 Lasix SLOW IVP 40 mg 0600 HARMAN Administration Glipizide 10 mg 03/06/19 09:00 03/07/19 20:53 Glucotrol PO 10 mg BID HARMAN Administration Guaifenesin/Dextromethorphan 15 ml 03/05/19 23:16 03/07/19 03:41 Robitussin Dm PO 15 ml Q4H PRN Administration Cough Insulin Glargine 10 units/ 0.1 mls @ 0 mls/hr 03/06/19 09:00 03/07/19 20:54 Miscellaneous Medication SC 0.1 mls BID HARMAN Administration Levofloxacin 500 mg/ Device 100 mls @ 100 mls/hr 03/05/19 23:59 03/07/19 23: 20 IVPB 100 mls Q24HR HARMAN Administration Insulin Human Lispro 0 units 03/05/19 23:16 03/07/19 17:15 Humalog SC 3 unit .AGGRESSIVE SLIDING PRN Administration Aggressive Correctional Scale Insulin Human Lispro 0 units 03/05/19 23:16 03/07/19 20:55 Humalog SC 2 unit .BEDTIME SLIDING SC PRN Administration Bedtime Correctional Scale Lisinopril 5 mg 03/06/19 21:00 03/07/19 20:54 Zestril PO 5 mg BID HARMAN Administration Prednisone 40 mg 03/07/19 08:00 03/07/19 07:45 Prednisone PO 03/11/19 08:01 40 mg QAM-WM HARMAN Administration Pregabalin 75 mg 03/06/19 09:00 03/07/19 20:53 Lyrica PO 75 mg BID HARMAN Administration Sodium Chloride 15 ml 03/06/19 21:00 03/08/19 06:41 Sodium Chloride 3% NEB 15 ml BID HARMAN Administration - Exam General Appearance: NAD, awake alert Eye: anicteric sclera ENT: moist mucosa Heart: RRR, no murmur, no gallops, no rubs Respiratory: no wheezes, no rales Respiratory - other findings: coarse breath sounds bilaterally, good air movement throughout Gastrointestinal: soft, non-tender, non-distended, normal bowel sounds Extremities: 1+ LE edema Psychiatric: normal affect, normal behavior, A&O x 3 Hosp A/P (1) Acute congestive heart failure Code(s): I50.9 - HEART FAILURE, UNSPECIFIED Status: Acute Qualifiers: Heart failure type: systolic Qualified Code(s): I50.21 - Acute systolic ( congestive) heart failure (2) COPD with exacerbation Code(s): J44.1 - CHRONIC OBSTRUCTIVE PULMONARY DISEASE W (ACUTE) EXACERBATION Status: Acute (3) Cavitary lesion of lung Code(s): J98.4 - OTHER DISORDERS OF LUNG Status: Resolved (4) Pulmonary nodules Status: Acute (5) Diabetes mellitus type 2, insulin dependent Code(s): E11.9 - TYPE 2 DIABETES MELLITUS WITHOUT COMPLICATIONS; Z79.4 - MCFP (CURRENT) USE OF INSULIN Status: Chronic (6) Hyperlipidemia Code(s): E78.5 - HYPERLIPIDEMIA, UNSPECIFIED Status: Chronic (7) Hypertension Code(s): I10 - ESSENTIAL (PRIMARY) HYPERTENSION Status: Chronic (8) PVD (peripheral vascular disease) Code(s): I73.9 - PERIPHERAL VASCULAR DISEASE, UNSPECIFIED Status: Chronic (9) Tobacco abuse Code(s): Z72.0 - TOBACCO USE Status: Chronic (10) History of AAA (abdominal aortic aneurysm) repair Code(s): Z98.890 - OTHER SPECIFIED POSTPROCEDURAL STATES Status: Chronic - Plan new onset CHF- ECHO with EF 45-50%, Dr. Soumya carr, started on carvedilol, lisinopril BID, diuresing with lasix- good UOP Elevated troponins- NSTEMI vs Type 2 AMI from CHF exacerbation, on ASA, troponin remains stable COPD exacerbation- on low dose steroids and duonebs Cavitary lung lesion with multiple nodules, concerning for cancer, checking for TB- prelim negative, Pulm plans bronch on Th or Fri, if not diagnostic perhaps PET scan as outpatient as transcutaneous bx risky for PTX or fistula BP running a bit low this AM DVT prophylaxis- Lovenox
[2019-03-08] MEDS: Insulin Glargine 10 UNITS in Pre-Filled Syringe 1 EACH SC SCH ×2 (08:16→21:16)
[2019-03-08] MEDS: HumaLOG 300 UNITS/3 ML VIAL SC PRN ×3 (08:17→21:18)
[2019-03-08] MEDS: Lisinopril 5 MG TAB PO SCH ×2 (08:18→21:19)
[2019-03-08] MEDS: predniSONE 20 MG TAB PO SCH (08:18)
[2019-03-08] MEDS: Carvedilol 3.125 MG TAB PO SCH ×2 (08:18→21:18)
[2019-03-08] MEDS: Pregabalin 75 MG CAP PO SCH ×2 (08:19→21:19)
[2019-03-08] MEDS: Citalopram 20 MG TAB PO SCH (08:19)
[2019-03-08] MEDS: glipiZIDE 5 MG TAB PO SCH ×2 (08:19→21:18)
[2019-03-08] MEDS: Famotidine 20 MG TAB PO SCH ×2 (08:19→21:18)
[2019-03-08] MEDS: Aspirin Chewable 81 MG TAB PO SCH (08:20)
[2019-03-08] MEDS: Enoxaparin Sodium 40 MG/0.4 ML SYRINGE SC SCH (08:20)
--- NOTE | 2019-03-08 17:33 | PDOC.CPN ---
- Subjective Date: 03/08/19 Time: 17:34 Interval history: The pt seen and examined. No overnight events. No cardiac complaints. - Objective Allergies/Adverse Reactions: Allergies Allergy/AdvReac Type Severity Reaction Status Date / Time No Known Allergies Allergy Verified 10/19/17 09:27 Visit Medications: Current Medications Acetaminophen (Tylenol) 650 mg PO Q4H PRN PRN Reason: Headache/Fever/Mild Pain (1-3) Hydrocodone Bitart/Acetaminophen ([place] 5/325) 1 tab PO Q4H PRN PRN Reason: Moderate Pain (4-6) Albuterol/Ipratropium (Duoneb) 3 ml NEB [id number] [facility] Last Admin: 03/08/19 12:41 Dose: 3 ml Aspirin (Aspirin Chewable) [address] [facility] Last Admin: 03/08/19 08:20 Dose: 81 mg Atorvastatin Calcium (Lipitor) [address] [facility] Last Admin: 03/07/19 20:53 Dose: 20 mg Bisacodyl (Dulcolax) 10 mg MD DAILYPRN PRN PRN Reason: Constipation Carvedilol (Coreg) 6.[address] [facility] Last Admin: 03/08/19 08:18 Dose: 6.25 mg Citalopram Hydrobromide (Celexa) [address] [facility] Last Admin: 03/08/19 08:19 Dose: 40 mg Dextrose/Water (Dextrose 50%) 25 gm SLOW IVP PRN PRN PRN Reason: Hypoglycemia Enoxaparin Sodium (Lovenox) [address] [facility] Last Admin: 03/08/19 08:20 Dose: 40 mg Famotidine (Pepcid) [address] [facility] Last Admin: 03/08/19 08:19 Dose: 20 mg Furosemide (Lasix) [address] [facility] Last Admin: 03/08/19 06:15 Dose: 40 mg Glipizide (Glucotrol) [address] [facility] Last Admin: 03/08/19 08:19 Dose: 10 mg Glucagon (Glucagon) 1 mg IM PRN PRN PRN Reason: Hypoglycemia Guaifenesin/Dextromethorphan (Robitussin Dm) 15 ml PO Q4H PRN PRN Reason: Cough Last Admin: 03/07/19 03:41 Dose: 15 ml Dextrose/Water (D5w) 1,000 mls @ 0 mls/hr IV .Q0M PRN PRN Reason: Hypoglycemia Insulin Glargine 10 units/ (Miscellaneous Medication) 0.1 mls @ 0 mls/hr SC BID [facility] Last Admin: 03/08/19 08:16 Dose: 0.1 mls Levofloxacin 500 mg/ Device 100 mls @ 100 mls/hr IVPB Q24HR [facility] Last Admin: 03/07/19 23:20 Dose: 100 mls Insulin Human Lispro (Humalog) 0 units SC .AGGRESSIVE SLIDING PRN PRN Reason: Aggressive Correctional Scale Last Admin: 03/08/19 08:17 Dose: 9 unit Insulin Human Lispro (Humalog) 0 units SC .BEDTIME SLIDING SC PRN PRN Reason: Bedtime Correctional Scale Last Admin: 03/07/19 20:55 Dose: 2 unit Lisinopril (Zestril) [address] [facility] Last Admin: 03/08/19 08:18 Dose: 5 mg Ondansetron HCl (Zofran) 4 mg IVP Q6H PRN PRN Reason: Nausea/Vomiting Prednisone (Prednisone) 40 mg PO QAM-[facility] Stop: 03/11/19 08:01 Last Admin: 03/08/19 08:18 Dose: 40 mg Pregabalin (Lyrica) [address] [facility] Last Admin: 03/08/19 08:19 Dose: 75 mg Senna/Docusate Sodium (Senokot S) 2 tab PO BID PRN PRN Reason: Constipation Sodium Chloride (Sodium Chloride 3%) [address] [facility] Last Admin: 03/08/19 06:41 Dose: 15 ml Sterile Water (Bacteriostatic Water) 1 ml FS PRN PRN PRN Reason: RECONSTITUTION Vital Signs & Weight: Vital Signs Temp Pulse Pulse Pulse Resp BP BP 03/08/19 16:00 98.3 F 71 18 03/08/19 12:41 76 16 03/08/19 12:36 67 70 104/54 L 107/54 L 03/08/19 11:03 98.6 F 59 L 16 03/08/19 08:18 58 L 03/08/19 08:00 97.9 F 58 L 16 03/08/19 06:40 72 16 BP Pulse Ox 03/08/19 16:00 123/60 94 L 03/08/19 12:41 03/08/19 12:36 03/08/19 11:03 106/57 L 95 03/08/19 08:18 03/08/19 08:00 118/56 L 93 L 03/08/19 06:40 Weight 203 lb 4.259 oz - Physical Exam General: alert & oriented x3 HEENT: mucus membranes moist Neck: supple neck Cardiac: regular rate and rhythm, S1/S2 Lungs: decreased breath sounds, wheezes Neuro: cranial nerve 2-12 intact Extremities: no edema - Labs Result Diagrams: 03/08/19 06:48 03/08/19 06:48 Troponin/CKMB CK-MB (CK-2) 7.5 ng/mL (0-6.6) H* 03/05/19 19:11 Troponin I 0.389 ng/mL (< 0.028) H* 03/08/19 06:48 - Telemetry Sinus rhythms and dysrhythmias: sinus rhythm - Assessment/Plan Assessment/Plan: 1. Acute on Chronic Systolic HF with EF 45-50% - stable with coreg, ELROY, and Lasix 2. Elevated trop 2/2 demand ischemia - stable 3. COPD with exacerbation - stable with NC 4. Hx of AAA in 10/2017 5. Pulmonary nodules in Rt upper lobe 6. HTN - stable with current med 7. DM type 2 - 8. Tobacco abuse - the pt is willing to quit smoking 9. Cavitary lung lesion with multiple nodules - Possible cancer vs TB; checking for TB by stroke program coordinator; if negative, Pulm plans bronch on or Wed; if not diagnostic perhaps PET scan as outpatient as transcutaneous bx risky for PTX or fistula MAR reviewed * Echo in 02/2019 with EF 45-50%,mild Mr, trace TR, and mildly hypokinetic [place] * Dr Marcial's pt Pt. seen and eval. by me. I agree with the A/P by the [employer]. Overall cardiac status is stable. Await pulmonary eval. for lung lesion. jd
--- NOTE | 2019-03-08 20:46 | PRG ---
DATE OF SERVICE: 03/08/2019 SERVICE: Pulmonary Medicine. INTERVAL HISTORY: The patient is doing fine from respiratory standpoint. Breathing comfortably. He indicates that he is basically back to his usual state of health. He denies any fevers, chills, or overnight events. Otherwise, there has been no interval change to his condition. PHYSICAL EXAMINATION: VITAL SIGNS: Afebrile. Pulse 81, blood pressure 113/52, respirations 20, saturation 92% on 3.5 L nasal cannula. GENERAL: The patient is awake and alert, in no apparent distress. LUNGS: Decreased air entry. No prolonged expiratory phase present. No wheezing or rhonchi appreciated. HEART: Normal rate and regular. ABDOMEN: Soft, nontender, and nondistended. Bowel sounds are positive. MUSCULOSKELETAL: No cyanosis or clubbing. No pitting in the bilateral lower extremities. NEUROLOGIC: Grossly nonfocal. LABORATORY DATA: WBC 11.0, hemoglobin 14.8, and platelets 290,000. D-dimer 1.03. Basic metabolic profile is completely unremarkable. His bicarb has jumped up. Troponin 0.38. Urinalysis is unremarkable. HIV 1 and 2 are nonreactive. Blood cultures x2, respiratory culture negative to date. The patient has only been able to generate one sputum and that smear is negative. ASSESSMENT: 1. Acute hypoxic respiratory failure. 2. Acute on chronic systolic heart failure, returned to euvolemia. 3. Chronic obstructive pulmonary disease with acute exacerbation. 4. Pulmonary cavity. 5. Pulmonary nodules, multiple. DISCUSSION AND PLAN: We will proceed with a bronchoscopy to get a sample out of this thing. After I collect my sample, he will be stable for transition out of the hospital from a purely lung standpoint. He can follow up with me in clinic in 1-2 weeks in the outpatient setting, and we will review the results of the pathology, cultures, and laboratories including rheumatoid factor, and ANCAs that are currently pending. Once again, I have expressed my concern to the patient that this may represent a malignancy process like cancer. Job ID: [id number]
[2019-03-08] MEDS: Atorvastatin Calcium 20 MG TAB PO SCH (21:18)
[2019-03-08] MEDS: Nicotine 14 MG PATCH TD SCH (22:41)
--- NOTE | 2019-03-09 05:49 | PRG ---
DATE OF SERVICE: 03/09/2019 SERVICE: Pulmonary Medicine. INTERVAL HISTORY: The patient did fine overnight. He was breathing comfortably. He slept very well. He denies any current chest discomfort, fevers, or chills. Otherwise, he is in his usual state of health. 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 After the sample is collected, he will be considered for discharge from the hospital. He is eager to get home. PHYSICAL EXAMINATION: VITAL SIGNS: Afebrile, pulse 78, blood pressure 113/52, respirations 20, saturation 96% on 3 L nasal cannula. GENERAL: The patient is awake and alert, in no apparent distress. LUNGS: Decent air entry. There is a prolonged expiratory phase and a little bit of wheezing, particularly with forced exhalation. HEART: Normal rate, regular. ABDOMEN: Soft, nontender, nondistended. Bowel sounds are positive. MUSCULOSKELETAL: No cyanosis or clubbing. No pitting in the bilateral lower extremities. NEUROLOGIC: Grossly nonfocal. LABORATORY DATA: HIV 1 and 2 are unremarkable. Blood cultures x2, respiratory culture, and AFB smear all negative to date. ASSESSMENT: 1. Acute hypoxic respiratory failure. 2. Acute on chronic systolic heart failure (currently euvolemic). 3. Chronic obstructive pulmonary disease with acute exacerbation. 4. Pulmonary cavities. 5. Pulmonary nodules, multiple. DISCUSSION AND PLAN: We will perform a bronchoscopy today. The primary reason for this is to collect an AFB sample. The secondary issue is I may be able to identify the underlying process if it is a malignancy. That being said, even if the cytology is unremarkable, he will still need an additional sampling procedure and/or PET scan arranged in the outpatient setting. This may prove difficult as the patient is unfunded. I told him my concerns that this could represent a malignancy. Rheumatoid factor and ANCA are currently pending but are unlikely to be remarkable. On discharge from the hospital, he will need to complete his 7-day course of antibiotic, and 5-day course of steroids. Job ID: [id number]
[2019-03-09] MEDS: Furosemide 40 MG/4 ML VIAL SLOW IVP SCH (05:53)
[2019-03-09] MEDS ORDERED: Fentanyl 100 MCG/2 ML VIAL ONE ×2 (07:09→09:11)
[2019-03-09] MEDS ORDERED: Midazolam HCl 2 mg/2 ml Vial ONE (07:09)
[2019-03-09] MEDS: Sodium Chloride 3% (15 ML) NEB NEB SCH ×2 (07:43→18:27)
--- NOTE | 2019-03-09 08:09 | PDOC.HOSPP ---
- Subjective Encounter Date: 03/09/19 Encounter Time: 11:30 Subjective: Patient back from [facility]. Wants to go home today. Doesn't use home O2. Requiring 3L in the hospital. - Objective Vital Signs & Weight: Vital Signs (12 hours) Temp Pulse Resp BP Pulse Ox 03/09/19 04:00 98.8 F 76 18 146/65 H 92 L 03/09/19 00:49 78 20 96 03/08/19 21:19 81 Weight Weight 202 lb 12.8 oz I&O: 03/08/19 03/09/19 03/10/19 06:59 06:59 06:59 Intake Total 1200 Output Total 850 Balance 350 Result Diagrams: 03/08/19 06:48 03/08/19 06:48 Additional Labs: Accuchecks 03/09/19 03/08/19 03/08/19 06:10 20:21 16:52 POC Glucose 265 H 278 H 368 H 03/08/19 10:18 POC Glucose 63 L Hospitalist ROS - Review of Systems Constitutional: denies: fever, chills Respiratory: reports: cough. denies: shortness of breath Cardiovascular: denies: chest pain, palpitations, orthopnea Gastrointestinal: denies: nausea, vomiting, abdominal pain - Medication Medications: Active Medications Generic Name Dose Route Start Last Admin Trade Name Freq PRN Reason Stop Dose Admin Albuterol/Ipratropium 3 ml 03/06/19 01:00 03/09/19 07:43 Duoneb NEB Not Given [id number] HARMAN Aspirin 81 mg 03/06/19 09:00 03/08/19 08:20 Aspirin Chewable PO 81 mg DAILY HARMAN Administration Atorvastatin Calcium 20 mg 03/06/19 21:00 03/08/19 21:18 Lipitor PO 20 mg HS HARMAN Administration Carvedilol 6.25 mg 03/07/19 09:00 03/08/19 21:18 Coreg PO 6.25 mg BID HARMAN Administration Citalopram Hydrobromide 40 mg 03/06/19 09:00 03/08/19 08:19 Celexa PO 40 mg DAILY HARMAN Administration Enoxaparin Sodium 40 mg 03/06/19 09:00 03/08/19 08:20 Lovenox SC 40 mg 0900 HARMAN Administration Famotidine 20 mg 03/06/19 09:00 03/08/19 21:18 Pepcid PO 20 mg BID HARMAN Administration Furosemide 40 mg 03/07/19 06:00 03/09/19 05:53 Lasix SLOW IVP 40 mg 0600 HARMAN Administration Glipizide 10 mg 03/06/19 09:00 03/08/19 21:18 Glucotrol PO 10 mg BID HARMAN Administration Guaifenesin/Dextromethorphan 15 ml 03/05/19 23:16 03/07/19 03:41 Robitussin Dm PO 15 ml Q4H PRN Administration Cough Insulin Glargine 10 units/ 0.1 mls @ 0 mls/hr 03/06/19 09:00 03/08/19 21:16 Miscellaneous Medication SC 0.1 mls BID HARMAN Administration Levofloxacin 500 mg/ Device 100 mls @ 100 mls/hr 03/05/19 23:59 03/08/19 22: 41 IVPB 100 mls Q24HR HARMAN Administration Insulin Human Lispro 0 units 03/05/19 23:16 03/08/19 18:03 Humalog SC 13 unit .AGGRESSIVE SLIDING PRN Administration Aggressive Correctional Scale Insulin Human Lispro 0 units 03/05/19 23:16 03/08/19 21:18 Humalog SC 3 unit .BEDTIME SLIDING SC PRN Administration Bedtime Correctional Scale Lisinopril 5 mg 03/06/19 21:00 03/08/19 21:19 Zestril PO 5 mg BID HARMAN Administration Nicotine 14 mg 03/08/19 22:30 03/08/19 22:41 Nicoderm Patch TD 14 mg Q24HR HARMAN Administration Prednisone 40 mg 03/07/19 08:00 03/08/19 08:18 Prednisone PO 03/11/19 08:01 40 mg QAM-WM HARMAN Administration Pregabalin 75 mg 03/06/19 09:00 03/08/19 21:19 Lyrica PO 75 mg BID HARMAN Administration Sodium Chloride 15 ml 03/06/19 21:00 03/09/19 07:43 Sodium Chloride 3% NEB Not Given BID HARMAN - Exam General Appearance: NAD ENT: moist mucosa Heart: RRR, no murmur, no gallops, no rubs Respiratory: no wheezes, no rales, normal chest expansion, no tachypnea Respiratory - other findings: some coarse breath sounds bilaterally Gastrointestinal: soft, non-tender, non-distended, normal bowel sounds Psychiatric: normal affect, normal behavior, A&O x 3 Hosp A/P (1) Acute congestive heart failure Code(s): I50.9 - HEART FAILURE, UNSPECIFIED Status: Acute Qualifiers: Heart failure type: systolic Qualified Code(s): I50.21 - Acute systolic ( congestive) heart failure (2) COPD with exacerbation Code(s): J44.1 - CHRONIC OBSTRUCTIVE PULMONARY DISEASE W (ACUTE) EXACERBATION Status: Acute (3) Cavitary lesion of lung Code(s): J98.4 - OTHER DISORDERS OF LUNG Status: Resolved (4) Pulmonary nodules Status: Acute (5) Diabetes mellitus type 2, insulin dependent Code(s): E11.9 - TYPE 2 DIABETES MELLITUS WITHOUT COMPLICATIONS; Z79.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 Status: Chronic (6) Hyperlipidemia Code(s): E78.5 - HYPERLIPIDEMIA, UNSPECIFIED Status: Chronic (7) Hypertension Code(s): I10 - ESSENTIAL (PRIMARY) HYPERTENSION Status: Chronic (8) PVD (peripheral vascular disease) Code(s): I73.9 - PERIPHERAL VASCULAR DISEASE, UNSPECIFIED Status: Chronic (9) Tobacco abuse Code(s): Z72.0 - TOBACCO USE Status: Chronic (10) History of AAA (abdominal aortic aneurysm) repair Code(s): Z98.890 - OTHER SPECIFIED POSTPROCEDURAL STATES Status: Chronic (11) NSTEMI (non-ST elevated myocardial infarction) Code(s): I21.4 - NON-ST ELEVATION (NSTEMI) MYOCARDIAL INFARCTION Status: Acute Plan: present on admission, stable (12) Acute and chronic respiratory failure with hypoxia Code(s): J96.21 - ACUTE AND CHRONIC RESPIRATORY FAILURE WITH HYPOXIA Status: Acute - Plan new onset CHF- ECHO with EF 45-50%, Dr. Dooley following, started on carvedilol, lisinopril BID, diuresing with lasix- good UOP Elevated troponins- NSTEMI from CHF exacerbation, on ASA, troponin remains stable COPD exacerbation- on low dose steroids (3 of 5 days) and duonebs Cavitary lung lesion with multiple nodules, concerning for cancer, checking for TB- prelim negative Bronch done today- washing but no bx done due to anatomy If not diagnostic perhaps PET scan as outpatient as transcutaneous bx risky for PTX or fistula blood sugar running high Patient cleared by pulm for discharge after bronchoscopy Will need home O2 as desating to 83% on room air, possibly home tomorrow DVT prophylaxis- Lovenox
[2019-03-09] MEDS ORDERED: Albuterol Sulfate HFA (OR ONLY) ONE (09:05)
[2019-03-09] MEDS ORDERED: Rocuronium Bromide 10 MG/ML (10ML VIAL) ONE (09:52)
[2019-03-09] MEDS ORDERED: PHENYLEPHRINE-NS 100 MCG/ML 10 ML SYRINGE ONE (09:52)
[2019-03-09] MEDS ORDERED: Dexamethasone 20 MG/5 ML VIAL ONE (09:52)
[2019-03-09] MEDS ORDERED: Ondansetron PF 4 MG/2 ML Vial ONE (09:52)
[2019-03-09] MEDS ORDERED: PROPOFOL 200 MG/20 ML VIAL ONE (09:52)
[2019-03-09] MEDS ORDERED: Glycopyrrolate 0.2 MG/ML 5 ML SYRINGE ONE (09:52)
[2019-03-09] MEDS ORDERED: ePHEDrine/0.9% NaCl/PF SYRINGE 50 mg/10 ml ONE (09:52)
[2019-03-09] MEDS: Carvedilol 3.125 MG TAB PO SCH ×2 (10:19→21:23)
[2019-03-09] MEDS: Citalopram 20 MG TAB PO SCH (10:20)
[2019-03-09] MEDS: predniSONE 20 MG TAB PO SCH (10:20)
[2019-03-09] MEDS: Aspirin Chewable 81 MG TAB PO SCH (10:20)
[2019-03-09] MEDS: Famotidine 20 MG TAB PO SCH ×2 (10:20→21:24)
[2019-03-09] MEDS: glipiZIDE 5 MG TAB PO SCH ×2 (10:21→21:23)
[2019-03-09] MEDS: Enoxaparin Sodium 40 MG/0.4 ML SYRINGE SC SCH (10:21)
[2019-03-09] MEDS: Pregabalin 75 MG CAP PO SCH ×2 (10:22→21:23)
[2019-03-09] MEDS: Insulin Glargine 10 UNITS in Pre-Filled Syringe 1 EACH SC SCH ×2 (10:22→21:10)
[2019-03-09] MEDS: Lisinopril 5 MG TAB PO SCH ×2 (11:35→21:24)
--- NOTE | 2019-03-09 12:23 | PQF ---
CLINICAL DOCUMENTATION IMPROVEMENT CLARIFICATION FORM: ICD-10 Updated PLEASE DO AN ADDENDUM TO THE PROGRESS NOTE WITH ANY DOCUMENTATION UPDATES OR ADDITIONS AND CARRY THROUGH TO DC SUMMARY. THANK YOU. DATE: 03/09/19 ATTN: DR. RINCON Please exercise your independent, professional judgment in responding to the clarification form. Clinical indicators are provided on the bottom of this form for your review Please check appropriate box(s): Conflicting documentation was noted in the Medical Record, please clarify if patient is being treated/monitored for: [ X ] NSTEMI [ ] MD TYPE 2 [ ] DEMAND ISCHEMIA [ ] Other diagnosis [ ] Unable to determine In addition, please specify: Present on Admission (POA): [ X ] Yes [ ] No [ ] Unable to determine For continuity of documentation, please document condition throughout progress notes and discharge summary. Thank You. CLINICAL INDICATORS - SIGNS / SYMPTOMS/ LABS / RESULTS AND LOCATION IN EMR PROGRESS NOTE 03/06: "ELEVATED TROPONINS- NSTEMI VS TYPE 2 AMI" CARDIOLOGY NOTE 03/07: "ELEVATED TROP 2/2 DEMAND ISCHEMIA" RISKS: NEW ONSET CHF EXACERBATION (PROGRESS NOTE 03/06) HYPERTENSION (PROGRESS NOTE03/06) TOBACCO ABUSE (PROGRESS NOTE 03/06) TROPONINS 03/05-03/06: 0.381 / 0.379 / 0.339 TREATMENT: ASPIRIN (ER-PRESENT) NITRO-BID TRANSDERMAL (ER) CARDIOLOGY CONSULT TELEMETRY MONITORING (This form is maintained as a part of the permanent medical record) [employer] 2014 [employer]. All Rights Reserved [email or web address] [email or web address] Office: [phone] [facility] CENTERZulema
[2019-03-09 12:59] LABS: CCP IgG Antibody 0.8 EliAU/mL (<7 Negative); EliA RAS New Method **** NEW METHOD ****; Rheumatoid Factor IgA Antibody 3.4 IU/mL (<14 Negative); Rheumatoid Factor IgM Antibody Less than 0.5 IU/mL (<3.5 Negative)
--- NOTE | 2019-03-09 13:15 | OP ---
DATE OF PROCEDURE: 03/09/2019 PROCEDURES PERFORMED: Fiberoptic bronchoscopy with; 1. Visual airway inspection. 2. Bronchoalveolar lavage of the right upper lobe. 3. Endobronchial brushing of the right upper lobe. PREPROCEDURE DIAGNOSIS: Pulmonary cavity. POSTPROCEDURE DIAGNOSIS: Pulmonary cavity. MEDICATIONS USED: For a list of medications, please refer to Anesthesia documentation. PREANESTHESIA ASSESSMENT: H and P had been performed. The patient's medications and allergies were reviewed. Informed consent was obtained after discussing the risks, benefits, and rationale for performing the procedure as well as alternative options. DESCRIPTION OF PROCEDURE: A time-out was performed identifying the correct procedure and patient with name and date of . A diagnostic fiberoptic bronchoscope was advanced through the endotracheal tube. A tracheobronchial tree inspection was carried out with clear identification of the right upper lobe, right middle lobe, right lower lobe, left upper lobe, lingula, and left lower lobe. Secretions were moderate to heavy, quite sticky, and white in appearance. It actually involved the left lung quite a bit more than the right lung. An endobronchial brush was used to cannulate all visible airways, secondary airways, and tertiary airways if possible in the anterior and superior segments of the right upper lobe. A brushing was obtained from the only segment that led directly to the area of interest. Transbronchial biopsies were attempted to be performed in the same airway, but because of the acute angle of the turn, the bronchoscope with the larger biopsy forceps could not get into the appropriate airway, so no biopsies were obtained. We then did a BAL of the right upper lobe involving both the anterior and superior segments. Hemostasis was verified and the bronchoscope was subsequently removed from the patient. Postprocedure fluoroscopy did not demonstrate a pneumothorax. FINDINGS: 1. No endobronchial disease was identified. 2. Rosalee appeared sharp. 3. Secretions were moderate to heavy and had a very sticky/tenacious and white appearance. SPECIMENS OBTAINED: 1. BAL from the right upper lobe. 2. Endobronchial brushing from the right upper lobe. COMPLICATIONS: None. ESTIMATED BLOOD LOSS: Less than 5 mL. FLUOROSCOPY TIME: Less than 3 minutes. DISPOSITION: The patient will transition to the postanesthesia care unit. When he meets criteria, he will go back to his floor. If he is stable in the afternoon, he could be considered for discharge. Job ID: [id number]
[2019-03-09 13:27] LABS: BF Color Pink; BF RBC Count - Manual 655 /cumm; BF WBC/Nonhematics Ct. - Manua 5 /cumm; Body Fluid Source Bronchial Washings; Clarity Hazy (Clear); Tube # EDTA
--- NOTE | 2019-03-09 15:43 | PDOC.CPN ---
- Subjective Date: 03/09/19 Time: 15:43 - Objective Allergies/Adverse Reactions: Allergies Allergy/AdvReac Type Severity Reaction Status Date / Time No Known Allergies Allergy Verified 10/19/17 09:27 Visit Medications: Current Medications Acetaminophen (Tylenol) 650 mg PO Q4H PRN PRN Reason: Headache/Fever/Mild Pain (1-3) Hydrocodone Bitart/Acetaminophen ([place] 5/325) 1 tab PO Q4H PRN PRN Reason: Moderate Pain (4-6) Albuterol/Ipratropium (Duoneb) 3 ml NEB [id number] [facility] Last Admin: 03/09/19 13:32 Dose: 3 ml Aspirin (Aspirin Chewable) 81 mg PO DAILY [facility] Last Admin: 03/09/19 10:20 Dose: 81 mg Atorvastatin Calcium (Lipitor) 20 mg PO HS [facility] Last Admin: 03/08/19 21:18 Dose: 20 mg Bisacodyl (Dulcolax) 10 mg NC DAILYPRN PRN PRN Reason: Constipation Carvedilol (Coreg) 6.25 mg PO BID [facility] Last Admin: 03/09/19 10:19 Dose: 6.25 mg Citalopram Hydrobromide (Celexa) 40 mg PO DAILY [facility] Last Admin: 03/09/19 10:20 Dose: 40 mg Dextrose/Water (Dextrose 50%) 25 gm SLOW IVP PRN PRN PRN Reason: Hypoglycemia Enoxaparin Sodium (Lovenox) 40 mg SC 0900 [facility] Last Admin: 03/09/19 10:21 Dose: 40 mg Famotidine (Pepcid) 20 mg PO BID [facility] Last Admin: 03/09/19 10:20 Dose: 20 mg Furosemide (Lasix) 40 mg SLOW IVP 0600 [facility] Last Admin: 03/09/19 05:53 Dose: 40 mg Glipizide (Glucotrol) 10 mg PO BID [facility] Last Admin: 03/09/19 10:21 Dose: 10 mg Glucagon (Glucagon) 1 mg IM PRN PRN PRN Reason: Hypoglycemia Guaifenesin/Dextromethorphan (Robitussin Dm) 15 ml PO Q4H PRN PRN Reason: Cough Last Admin: 03/07/19 03:41 Dose: 15 ml Dextrose/Water (D5w) 1,000 mls @ 0 mls/hr IV .Q0M PRN PRN Reason: Hypoglycemia Insulin Glargine 10 units/ (Miscellaneous Medication) 0.1 mls @ 0 mls/hr SC BID [facility] Last Admin: 03/09/19 10:22 Dose: 0.1 mls Levofloxacin 500 mg/ Device 100 mls @ 100 mls/hr IVPB Q24HR [facility] Last Admin: 03/08/19 22:41 Dose: 100 mls Insulin Human Lispro (Humalog) 0 units SC .AGGRESSIVE SLIDING PRN PRN Reason: Aggressive Correctional Scale Last Admin: 03/08/19 18:03 Dose: 13 unit Insulin Human Lispro (Humalog) 0 units SC .BEDTIME SLIDING SC PRN PRN Reason: Bedtime Correctional Scale Last Admin: 03/08/19 21:18 Dose: 3 unit Lisinopril (Zestril) 5 mg PO BID [facility] Last Admin: 03/09/19 11:35 Dose: Not Given Nicotine (Nicoderm Patch) 14 mg TD Q24HR [facility] Last Admin: 03/08/19 22:41 Dose: 14 mg Ondansetron HCl (Zofran) 4 mg IVP Q6H PRN PRN Reason: Nausea/Vomiting Prednisone (Prednisone) 40 mg PO QA-[facility] Stop: 03/11/19 08:01 Last Admin: 03/09/19 10:20 Dose: 40 mg Pregabalin (Lyrica) 75 mg PO BID [facility] Last Admin: 03/09/19 10:22 Dose: 75 mg Senna/Docusate Sodium (Senokot S) 2 tab PO BID PRN PRN Reason: Constipation Sodium Chloride (Sodium Chloride 3%) 15 ml NEB BID [facility] Last Admin: 03/09/19 07:43 Dose: Not Given Sterile Water (Bacteriostatic Water) 1 ml FS PRN PRN PRN Reason: RECONSTITUTION Vital Signs & Weight: Vital Signs Temp Pulse Resp BP Pulse Ox 03/09/19 13:32 111 H 18 94 L 03/09/19 11:14 98 F 67 20 96/51 L 93 L 03/09/19 10:00 98.2 F 73 18 101/58 L 94 L 03/09/19 04:00 98.8 F 76 18 146/65 H 92 L Weight 202 lb 12.8 oz - Labs Result Diagrams: 03/08/19 06:48 03/08/19 06:48 Troponin/CKMB CK-MB (CK-2) 7.5 ng/mL (0-6.6) H* 03/05/19 19:11 Troponin I 0.389 ng/mL (< 0.028) H* 03/08/19 06:48 - Assessment/Plan Assessment/Plan: 1. Acute on Chronic Systolic HF with EF 45-50%. 2. Elevated trop 2/2 demand ischemia. 3. COPD with exacerbation 4. Hx of AAA 5. Pulmonary nodules in Rt upper lobe 6. HTN 7. DM type 2 8. Tobacco abuse 9. Cavitary lung lesion with multiple nodules. PLAN: - CV Stable. - Bronch results pending. - Continue current cardiac meds.
[2019-03-09] MEDS: HumaLOG 300 UNITS/3 ML VIAL SC PRN (17:02)
[2019-03-09] MEDS: Atorvastatin Calcium 20 MG TAB PO SCH (21:23)
[2019-03-10] MEDS: Sodium Chloride 3% (15 ML) NEB NEB SCH (06:59)
[2019-03-10] MEDS: Furosemide 40 MG/4 ML VIAL SLOW IVP SCH (07:09)
[2019-03-10] MEDS: Nicotine 14 MG PATCH TD SCH (07:10)
[2019-03-10 08:06] LABS: #Eosinphils 0.1 thou/uL (0.0-0.7); #Lymphocytes 1.7 thou/uL (1.20-3.40); #Monocytes 1.2 thou/uL (0.11-0.59); #Neutrophils 10.3 thou/uL (1.40-6.50); %Basophils 0.1 % (0.0-1.0); %Eosinophils 0.4 % (0.0-10.0); %Lymphocytes 12.5 % (21.0-51.0); Hemoglobin 14.9 g/dL (14.0-18.0); Mean Corpuscular HGB CONC 32.9 g/dL (32.0-36.0); Mean Corpuscular Hemoglobin 31.4 pg (27.0-31.0); Mean Corpuscular Volume 95.5 fL (78.0-98.0); Mean Platelet Volume 8.9 fL (7.4-10.4); Platelet Count 277 thou/uL (130-400); RBC Distribution Width 11.9 % (11.5-14.5); Red Blood Cell (RBC) Count 4.76 mill/uL (4.70-6.10); White Blood Cell (WBC) Count 13.2 thou/uL (4.8-10.8)
[2019-03-10 08:21] LABS: Anion Gap 12 mmol/L (10-20); BUN (Urea Nitrogen) 26 mg/dL (8.4-25.7); Calc. Creatinine Clearance 95 mL/min (70-130); Calcium 8.9 mg/dL (7.8-10.44); Carbon Dioxide 33 mmol/L (23-31); Chloride 94 mmol/L (98-107); Estimated GFR-MDRD 72; Glucose 363 mg/dL (80-115); Potassium 4.2 mmol/L (3.5-5.1); Sodium 135 mmol/L (136-145)
[2019-03-10] MEDS: Enoxaparin Sodium 40 MG/0.4 ML SYRINGE SC SCH (08:28)
[2019-03-10] MEDS: Carvedilol 3.125 MG TAB PO SCH (08:28)
[2019-03-10] MEDS: Citalopram 20 MG TAB PO SCH (08:29)
[2019-03-10] MEDS: Pregabalin 75 MG CAP PO SCH (08:29)
[2019-03-10] MEDS: predniSONE 20 MG TAB PO SCH (08:29)
[2019-03-10] MEDS: glipiZIDE 5 MG TAB PO SCH (08:29)
[2019-03-10] MEDS: Insulin Glargine 10 UNITS in Pre-Filled Syringe 1 EACH SC SCH (08:30)
[2019-03-10] MEDS: Aspirin Chewable 81 MG TAB PO SCH (08:30)
[2019-03-10] MEDS: HumaLOG 300 UNITS/3 ML VIAL SC PRN ×2 (08:30→11:41)
[2019-03-10] MEDS: Famotidine 20 MG TAB PO SCH (08:30)
[2019-03-10] MEDS: Lisinopril 5 MG TAB PO SCH (08:30)
--- NOTE | 2019-03-10 09:46 | PDOC.HOSPP ---
- Subjective Encounter Date: 03/10/19 (f/u COPD) Encounter Time: 09:44 Subjective: Pt denies any problems with his breathing today. Reports some lower abd pain that is relieved with urination, denies any pain with urination. Denies any n/v /abd pain. - Objective Vital Signs & Weight: Vital Signs (12 hours) Temp Pulse Resp BP Pulse Ox 03/10/19 08:22 98 F 70 16 130/59 L 93 L 03/10/19 07:00 70 18 97 03/10/19 06:59 70 18 97 03/10/19 03:19 97.5 F L 69 18 123/58 L 96 03/09/19 23:55 74 16 100 Weight Weight 204 lb I&O: 03/09/19 03/10/19 03/11/19 06:59 06:59 06:59 Intake Total 1200 1700 Output Total 850 1000 Balance 350 700 Result Diagrams: 03/10/19 07:11 03/10/19 07:11 Additional Labs: Accuchecks 03/10/19 03/09/19 03/09/19 05:46 20:29 16:52 POC Glucose 299 H 265 H 317 H 03/09/19 10:59 POC Glucose 189 H EKG Reviewed by me: Yes (tele = sinus 70's) Hospitalist ROS - Medication Medications: Active Medications Generic Name Dose Route Start Last Admin Trade Name Freq PRN Reason Stop Dose Admin Albuterol/Ipratropium 3 ml 03/06/19 01:00 03/10/19 07:00 Duoneb NEB 3 ml [id number] HARMAN Administration Aspirin 81 mg 03/06/19 09:00 03/10/19 08:30 Aspirin Chewable PO 81 mg DAILY HARMAN Administration Atorvastatin Calcium 20 mg 03/06/19 21:00 03/09/19 21:23 Lipitor PO 20 mg HS HARMAN Administration Carvedilol 6.25 mg 03/07/19 09:00 03/10/19 08:28 Coreg PO 6.25 mg BID HARMAN Administration Citalopram Hydrobromide 40 mg 03/06/19 09:00 03/10/19 08:29 Celexa PO 40 mg DAILY HARMAN Administration Enoxaparin Sodium 40 mg 03/06/19 09:00 03/10/19 08:28 Lovenox SC 40 mg 0900 HARMAN Administration Famotidine 20 mg 03/06/19 09:00 03/10/19 08:30 Pepcid PO 20 mg BID HARMAN Administration Furosemide 40 mg 03/07/19 06:00 03/10/19 07:09 Lasix SLOW IVP Not Given 0600 [facility] Glipizide 10 mg 03/06/19 09:00 03/10/19 08:29 Glucotrol PO 10 mg BID HARMNA Administration Guaifenesin/Dextromethorphan 15 ml 03/05/19 23:16 03/07/19 03:41 Robitussin Dm PO 15 ml Q4H PRN Administration Cough Insulin Glargine 10 units/ 0.1 mls @ 0 mls/hr 03/06/19 09:00 03/10/19 08:30 Miscellaneous Medication SC 0.1 mls BID HARMAN Administration Levofloxacin 500 mg/ Device 100 mls @ 100 mls/hr 03/05/19 23:59 03/10/19 07: 11 IVPB Not Given Q24HR [facility] Insulin Human Lispro 0 units 03/05/19 23:16 03/10/19 08:30 Humalog SC 9 unit .AGGRESSIVE SLIDING PRN Administration Aggressive Correctional Scale Insulin Human Lispro 0 units 03/05/19 23:16 03/08/19 21:18 Humalog SC 3 unit .BEDTIME SLIDING SC PRN Administration Bedtime Correctional Scale Lisinopril 5 mg 03/06/19 21:00 03/10/19 08:30 Zestril PO 5 mg BID HARMAN Administration Nicotine 14 mg 03/08/19 22:30 03/10/19 07:10 Nicoderm Patch TD Not Given Q24HR HARMAN Prednisone 40 mg 03/07/19 08:00 03/10/19 08:29 Prednisone PO 03/11/19 08:01 40 mg QAM-WM HARMAN Administration Pregabalin 75 mg 03/06/19 09:00 03/10/19 08:29 Lyrica PO 75 mg BID HARMAN Administration Sodium Chloride 15 ml 03/06/19 21:00 03/10/19 06:59 Sodium Chloride 3% NEB 15 ml BID HARMAN Administration - Exam General Appearance: NAD Heart: RRR, no murmur Respiratory - other findings: distant breath sounds - no audible w/r/r Gastrointestinal: soft, non-tender, non-distended, normal bowel sounds Extremities: no cyanosis, no clubbing, no edema Psychiatric: normal affect Hosp A/P (1) Acute and chronic respiratory failure with hypoxia Code(s): J96.21 - ACUTE AND CHRONIC RESPIRATORY FAILURE WITH HYPOXIA Status: Acute (2) Acute congestive heart failure Code(s): I50.9 - HEART FAILURE, UNSPECIFIED Status: Acute Qualifiers: Heart failure type: systolic Qualified Code(s): I50.21 - Acute systolic ( congestive) heart failure (3) Pulmonary nodules Status: Acute (4) Diabetes mellitus type 2, insulin dependent Code(s): E11.9 - TYPE 2 DIABETES MELLITUS WITHOUT COMPLICATIONS; 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 Please see discharge summary for complete details.
[2019-03-10 13:10] LABS: Cytoplasmic (C-ANCA) <1:20 titer (Neg:<1:20); Myeloperoxidase AutoAbs <9.0 U/mL (0.0-9.0); Perinuclear (P-ANCA) <1:20 titer (Neg:<1:20); Proteinase-3 AutoAbs Less than 3.5 U/mL (0.0-3.5)
--- NOTE | 2019-03-10 13:21 | PRG ---
DATE OF SERVICE: 03/10/2019 SERVICE: Pulmonary Medicine. INTERVAL HISTORY: The patient is doing fine from respiratory standpoint. He is breathing comfortably. I asked why he had been discharged home, he is not certain. Either way, he is in his usual state of health to go. He remains on a little bit of oxygen. Otherwise, there has been interval no change to his condition. PHYSICAL EXAMINATION: VITAL SIGNS: Afebrile, pulse 76, blood pressure 129/62, respirations 16, and saturation 93% currently on 2 L nasal cannula. GENERAL: The patient is awake and alert, in no apparent distress. LUNGS: Much improved air entry today. There is no prolonged expiratory phase appreciated. HEART: Normal rate and regular. ABDOMEN: Soft, nontender, and nondistended. Bowel sounds are positive. MUSCULOSKELETAL: No cyanosis or clubbing. There is no pitting in the bilateral lower extremities. NEUROLOGIC: Grossly nonfocal. LABORATORY DATA: WBC 13.2, hemoglobin 14.9, platelets 277,000. Creatinine 1.04, bicarb 33. Basic metabolic profile is otherwise unremarkable. His blood sugar is quite elevated. Urinalysis is unremarkable. Pleural fluid is significant for very few white blood cells compared to the red blood cells. Rheumatoid factor, CCP are unremarkable. HIV 1 and 2 are nonreactive. The bronchial washing, AFB smear is negative. Bronchial cultures are negative to date. ASSESSMENT: 1. Acute on chronic hypoxic respiratory failure. 2. Chronic obstructive pulmonary disease with acute exacerbation. 3. Acute on chronic systolic heart failure (currently euvolemic). 4. Pulmonary cavities. 5. Pulmonary nodules, multiple. DISCUSSION AND PLAN: The patient is stable for transition out of the hospital today. I will have him follow up with me in clinic in 1 to 2 weeks, so we can follow up the results of the serology, cultures, and pathology. Ultimately, in the outpatient setting, we are going to have to consider either a transcutaneous biopsy or a PET scan. I favor initial PET scanning. We will discuss this at our next appointment. Job ID: [id number]
[2019-03-10 14:09] LABS: QuantiFERON-TB Gold Plus Negative (Negative)
[2019-03-10 15:18] VITALS: BP 125/60; TEMP 98.2
--- NOTE | 2019-03-10 15:46 | PDOC.CPN ---
- Subjective Date: 03/10/19 Time: 15:42 Interval history: No new issues. - Review of Systems General: denies: fever/chills, weight/appetite/sleep changes, night sweats, fatigue Respiratory: denies: cough, congestion, shortness of breath, exercise intolerance Cardiovascular: denies: chest pain, palpitation, edema, paroxysmal nocturnal dyspnea, orthopnea Gastrointestinal: denies: nausea, vomiting, diarrhea, constipation, abd pain, GI bleeding Musculoskeletal: denies: pain, tenderness, stiffness, swelling, arthritis/ arthralgias Neurological: denies: numbness, syncope, seizure, weakness - Objective Allergies/Adverse Reactions: Allergies Allergy/AdvReac Type Severity Reaction Status Date / Time No Known Allergies Allergy Verified 10/19/17 09:27 Visit Medications: Current Medications Acetaminophen (Tylenol) 650 mg PO Q4H PRN PRN Reason: Headache/Fever/Mild Pain (1-3) Hydrocodone Bitart/Acetaminophen ([place] 5/325) 1 tab PO Q4H PRN PRN Reason: Moderate Pain (4-6) Albuterol/Ipratropium (Duoneb) 3 ml NEB [id number] [facility] Last Admin: 03/10/19 13:02 Dose: 3 ml Aspirin (Aspirin Chewable) 81 mg PO DAILY [facility] Last Admin: 03/10/19 08:30 Dose: 81 mg Atorvastatin Calcium (Lipitor) 20 mg PO HS [facility] Last Admin: 03/09/19 21:23 Dose: 20 mg Bisacodyl (Dulcolax) 10 mg NM DAILYPRN PRN PRN Reason: Constipation Carvedilol (Coreg) 6.25 mg PO BID [facility] Last Admin: 03/10/19 08:28 Dose: 6.25 mg Citalopram Hydrobromide (Celexa) 40 mg PO DAILY [facility] Last Admin: 03/10/19 08:29 Dose: 40 mg Dextrose/Water (Dextrose 50%) 25 gm SLOW IVP PRN PRN PRN Reason: Hypoglycemia Enoxaparin Sodium (Lovenox) 40 mg SC 0900 [facility] Last Admin: 03/10/19 08:28 Dose: 40 mg Famotidine (Pepcid) 20 mg PO BID [facility] Last Admin: 03/10/19 08:30 Dose: 20 mg Furosemide (Lasix) 40 mg PO DAILY[facility] Glipizide (Glucotrol) 10 mg PO BID [facility] Last Admin: 03/10/19 08:29 Dose: 10 mg Glucagon (Glucagon) 1 mg IM PRN PRN PRN Reason: Hypoglycemia Guaifenesin/Dextromethorphan (Robitussin Dm) 15 ml PO Q4H PRN PRN Reason: Cough Last Admin: 03/07/19 03:41 Dose: 15 ml Dextrose/Water (D5w) 1,000 mls @ 0 mls/hr IV .Q0M PRN PRN Reason: Hypoglycemia Insulin Glargine 10 units/ (Miscellaneous Medication) 0.1 mls @ 0 mls/hr SC BID [facility] Last Admin: 03/10/19 08:30 Dose: 0.1 mls Levofloxacin 500 mg/ Device 100 mls @ 100 mls/hr IVPB Q24HR [facility] Last Admin: 03/10/19 07:11 Dose: Not Given Insulin Human Lispro (Humalog) 0 units SC .AGGRESSIVE SLIDING PRN PRN Reason: Aggressive Correctional Scale Last Admin: 03/10/19 11:41 Dose: 6 unit Insulin Human Lispro (Humalog) 0 units SC .BEDTIME SLIDING SC PRN PRN Reason: Bedtime Correctional Scale Last Admin: 03/08/19 21:18 Dose: 3 unit Lisinopril (Zestril) 5 mg PO BID [facility] Last Admin: 03/10/19 08:30 Dose: 5 mg Nicotine (Nicoderm Patch) 14 mg TD Q24HR [facility] Last Admin: 03/10/19 07:10 Dose: Not Given Ondansetron HCl (Zofran) 4 mg IVP Q6H PRN PRN Reason: Nausea/Vomiting Prednisone (Prednisone) 40 mg PO QA-[facility] Stop: 03/11/19 08:01 Last Admin: 03/10/19 08:29 Dose: 40 mg Pregabalin (Lyrica) 75 mg PO BID [facility] Last Admin: 03/10/19 08:29 Dose: 75 mg Senna/Docusate Sodium (Senokot S) 2 tab PO BID PRN PRN Reason: Constipation Sodium Chloride (Sodium Chloride 3%) 15 ml NEB BID [facility] Last Admin: 03/10/19 06:59 Dose: 15 ml Sterile Water (Bacteriostatic Water) 1 ml FS PRN PRN PRN Reason: RECONSTITUTION Vital Signs & Weight: Vital Signs Temp Pulse Resp BP Pulse Ox 03/10/19 15:17 98.2 F 72 16 125/60 94 L 03/10/19 13:02 73 20 96 03/10/19 11:36 97.9 F 76 16 129/62 93 L 03/10/19 11:30 18 82 L 03/10/19 08:22 98 F 70 16 130/59 L 93 L 03/10/19 07:00 70 18 97 03/10/19 06:59 70 18 97 Weight 204 lb - Physical Exam General: alert & oriented x3 HEENT: mucus membranes moist Neck: supple neck Cardiac: regular rate and rhythm Lungs: clear to auscultation Neuro: grossly intact Abdomen: active bowel sounds Extremities: no edema Skin: clear Musculoskeletal: no pain - Labs Result Diagrams: 03/10/19 07:11 03/10/19 07:11 Troponin/CKMB CK-MB (CK-2) 7.5 ng/mL (0-6.6) H* 03/05/19 19:11 Troponin I 0.389 ng/mL (< 0.028) H* 03/08/19 06:48 - Telemetry Sinus rhythms and dysrhythmias: sinus rhythm - Assessment/Plan Assessment/Plan: 1. Acute on Chronic Systolic HF with EF 45-50%. 2. Elevated trop 2/2 demand ischemia. 3. COPD with exacerbation 4. Hx of AAA 5. Pulmonary nodules in Rt upper lobe 6. HTN 7. DM type 2 8. Tobacco abuse 9. Cavitary lung lesion with multiple nodules. PLAN: - CV Stable. - Continue current cardiac meds. - Will sign off. Please call with any questions.
--- NOTE | 2019-03-10 19:54 | DIS ---
DATE OF ADMISSION: 03/05/2019 DATE OF DISCHARGE: 03/10/2019 CONSULTANTS: 1. Dr. Dalton of Cardiology. 2. Dr. Schulz of Pulmonology. MEDICATIONS: Reconciled at discharge. NEW MEDICATIONS: 1. Aspirin 81 mg daily. 2. Carvedilol 6.25 mg b.i.d. 3. Furosemide 40 mg daily. 4. Levaquin 500 mg daily starting tomorrow for 2 days. 5. Lisinopril 5 mg p.o. b.i.d. 6. Prednisone 40 mg p.o. daily for one day tomorrow. MEDICATIONS DISCONTINUED: 1. Naproxen due to heart failure. 2. Lisinopril 10 mg once daily, this was changed to the dosing above. 3. Plavix, this was changed to low-dose aspirin to follow up with Dr. Marcial in the outpatient setting. MEDICATIONS TO RESUME: 1. Albuterol inhaler 2 puffs every 4 hours as needed. 2. Celexa 40 mg daily. 3. Lyrica 75 mg b.i.d. 4. Zocor 40 mg at bedtime. 5. Spiriva 1 inhalation daily. 6. Glipizide 10 mg b.i.d. 7. Metformin 1000 mg b.i.d. FINAL DIAGNOSES: 1. Qfkha-[id number]-wfqchig hypoxic respiratory failure. 2. Chronic obstructive pulmonary disease with exacerbation. 3. Hgals-yy-mcdepbp systolic heart failure. 4. Pulmonary cavities. 5. Pulmonary nodules. SECONDARY DIAGNOSES: 1. History of abdominal aortic aneurysm. 2. Hypertension. 3. Diabetes mellitus type 2. 4. Tobacco abuse. HISTORY OF PRESENT ILLNESS: Mr. Em is a 64-year-old male with the above medical problems, who presented to the emergency room with a complaint of shortness of breath and lower extremity edema. He was admitted for concern of heart failure exacerbation, COPD exacerbation, and a cavitary right upper lobe mass with bilateral pulmonary nodules. HOSPITAL COURSE: The patient has been evaluated and treated by Cardiology with diuresis by Lasix and adjustment of medications. Overall, his breathing has improved, he has been monitored on telemetry, maintained a sinus rhythm, and will need to maintain his current medications and follow up with Dr. Marcial. Of note , on review of his home medications, he was on Plavix. He was changed to low-dose aspirin here and will need to follow up with Dr. Marcial in the outpatient setting with regard to if Plavix is needed. The patient was evaluated and treated by Dr. Schulz of Pulmonology. He underwent bronchoscopy yesterday with bronchial washings obtained. He will need to complete 7 days of antibiotics, 5 days of steroids, and follow up with Dr. Schulz in 1 to 2 weeks. A determination will need to be made with regard to further evaluation of the cavitary lesion as well as the pulmonary nodules. The patient has been hypoxic here, responding well to oxygen by nasal cannula 2 L. On evaluation today, his lowest saturation level was 82% on room air. His blood sugars have been elevated in the 100 and 200s, this morning it was in the 300's. He will resume his home metformin, continue the glipizide, and his steroids will end tomorrow. This was managed with long-acting insulin here. Given the short duration of steroids, I am not discharging him with insulin. He will need to follow up with his primary care provider in the outpatient setting. The patient overall has improved, responding well to therapy, and does meet criteria for discharge to home. PHYSICAL EXAMINATION: VITAL SIGNS: On day of discharge, please see the note on the chart. DANG FINDINGS AND TEST RESULTS: CBC; 13.2, 14.9, 45.4, 277. D-dimer 1.03. Chemistry; 135, 4.2, 94, 33, 26, 1.04, 363. Urine shows present glucose. His bronchial washings show 655 red blood cells, 5 white blood cells, hazy clarity. Rheumatoid factor, IgA is 3.4-negative, IgM less than 0.5. CCP-IgG 0.8, considered negative. Antiproteinase-3 less than 3.5, atypical p-ANCA less than 1 to 20, antimyeloperoxidase less than 9, ANCA less than 1 to 20, ANCA pattern less than 1 to 20. Blood cultures obtained on 03/05, no growth so far. Respiratory culture shows saliva. AFB smear is negative x2. Respiratory culture few normal respiratory any present. Lung, right upper lobe bronchial washings, no malignant cells identified. Echocardiogram on 03/06 shows an EF of 45% to 50%. CT angiogram of the chest on 03/05 shows no evidence for PE, irregular cavitary lesion within the right upper lobe, which may be a cavitary malignancy or infectious process, small right pleural effusion, bilateral pulmonary nodules makes suspicion for malignancy higher. Chest x-ray on 03/05, interstitial prominence and pulmonary hyperinflation suggesting COPD, vague asymmetry of increased density, which may reflect scar, volume loss, or underlying nodule with recommendation for CT. DIET: Heart healthy, carbohydrate consistent. ACTIVITY: As tolerated with home oxygen 2 L nasal cannula. FOLLOWUP: 1. Follow up with Dr. Marcial in the outpatient setting with regard to managing heart failure as well as determining the Plavix. 2. Follow up with Dr. Schulz in 1 to 2 weeks for re-evaluation of breathing. Determination of further evaluation of both the cavitary lesion and the pulmonary nodules. 3. Follow up with cardiac rehab, which will contact you to make an appointment. 4. Follow up with Amilcar Peacock/Primary Care on March 13 at 10:30. 5. Reviewed with the patient this hospitalization, the importance of followup, and seek care precautions. No questions or further needs at the end of evaluation. DISCHARGE DISPOSITION: Home. CODE STATUS: Full. Total time coordinating discharge is 40 minutes. Job ID: [id number] MTDD
[2019-03-11] MEDS ORDERED: Furosemide 40 MG TAB PO SCH (07:30)
== END 2019-03-10 18:25 | disposition home or self-care (01) | DRG 205 ==
LOC: ERS 18:46 → ERHOLD 21:34 → 2SW 03-06 07:04 → 2NO 03-06 21:38
PROVIDERS: ADMIT Internal Medicine; ATTEND Internal Medicine
PROC: 0B9C8ZX Drainage of Right Upper Lung Lobe, Via Natural or Artificial Opening Endoscopic, Diagnostic (ICD-10-PCS; principal; 2019-03-09)
PROC: 0BDC8ZX Extraction of Right Upper Lung Lobe, Via Natural or Artificial Opening Endoscopic, Diagnostic (ICD-10-PCS; 2019-03-09)
DX: J98.4 Other disorders of lung (principal); I50.23 Acute on chronic systolic (congestive) heart failure; J96.21 Acute and chronic respiratory failure with hypoxia; I21.4 Non-ST elevation (NSTEMI) myocardial infarction; J44.1 Chronic obstructive pulmonary disease with (acute) exacerbation; I11.0 Hypertensive heart disease with heart failure; R91.8 Other nonspecific abnormal finding of lung field; E11.65 Type 2 diabetes mellitus with hyperglycemia; E11.51 Type 2 diabetes mellitus with diabetic peripheral angiopathy without gangrene; F17.200 Nicotine dependence, unspecified, uncomplicated; G89.29 Other chronic pain; M54.9 Dorsalgia, unspecified; Z79.899 Other long term (current) drug therapy; Z79.84 Long term (current) use of oral hypoglycemic drugs; Z79.02 Long term (current) use of antithrombotics/antiplatelets; Z95.820 Peripheral vascular angioplasty status with implants and grafts
CPT/HCPCS: 36415; 36416; 71045; 71275; 80048; 80053; 80061; 81003; 82553; 83520; 83690; 83735; 83880; 84443; 84484; 85025; 85379; 86200; 86256; 86480; 87040; 87070; 87102; 87116; 87205; 87206; 87389; 88112; 88305; 89051; 93005; 93306; 93798; 94640; 96365; 96366; 96375; 99406; J1100; J1650; J1815; J1940; J1956; J2250; J2405; J2543; J2704; J2920; J2930; J3010; J7512; J7620; Q9967

== ENCOUNTER 2019-04-25 09:13 | Outpatient (CLI) | payer OTHER ==
--- NOTE | 2019-04-25 13:55 | PET ---
Radionucleotide PET scan with CT attenuation correction HISTORY: Pulmonary nodule. COMPARISON: CT arteriogram chest 03/05/2019. FINDINGS: Physiologic uptake of radiotracer throughout the enteric system and along each urinary trac t. Increased activity associated with the cavitary lesion in the right upper lobe shows a maximum SUV of 8.5. Within the posterior segment of the left upper lobe, the activity associated with the adriane id nodule shows maximum SUV 3.2. Slightly more superior and lateral, a smaller nodule shows maximum SUV 1.8. Within the posterior aspect of the right upper lobe, a very small nodule shows maximum SUV 1.5. No hypermetabolic activity is associated with mediastinal lymph nodes. The enlarged subcarinal local node and the nonenlarged prevascular nodes are no longer visible on the nondiagnostic CT attenuation correction images. Right pleural fluid from the prior study is no longer visible. There is increased radiotracer uptake along the anterior margin of the right femoral neck without a definite soft tissue mass apparent on the CT images. Aortoiliac stent graft, lower abdominal aortic aneurysm, and atherosclerosis are again demonstrated. Gallstones in the dependent portion of the gallbladder lumen. IMPRESSION: Mixed findings, in that there has been resolution of the mediastinal adenopathy and right pleural fluid. The cavitary lesion of the right upper lobe and one of the nodules in the left upper lobe are definit david hypermetabolic. Other smaller nodules show activity less than the threshold for abnormality. The persistent solid nodules with increased activity are concerning for neoplastic process. Unfortuna tely, the size of the nodules would not be amenable to successful percutaneous biopsy. The cavitary lesion in the right upper lobe could likely be sampled with CT guidance. If this lesion was not neopl asm, but infection instead, the concern would be that there are 2 separate processes at the same time. In that case, continued CT follow-up would be required. Abnormal activity adjacent to the right hip may be related to inflammation. Clinical correlation rega rding other signs and symptoms of right hip inflammatory process is required. Cholelithiasis. Atherosclerosis.
== END 2019-04-25 09:14 | disposition home or self-care (01) ==
LOC: PET 09:13
PROVIDERS: ATTEND Internal Medicine
DX: R91.1 Solitary pulmonary nodule (principal); R91.8 Other nonspecific abnormal finding of lung field; R59.0 Localized enlarged lymph nodes; K80.20 Calculus of gallbladder without cholecystitis without obstruction; I70.90 Unspecified atherosclerosis
CPT/HCPCS: 78815; A9552

== ENCOUNTER 2019-05-05 07:47 | Day surgery (SDC) | payer OTHER ==
[2019-05-04 15:35] VITALS: BMI 28.3
[2019-05-05 08:11] LABS: #Basophils 0.2 thou/uL (0.0-0.2); #Eosinphils 0.4 thou/uL (0.0-0.7); #Lymphocytes 2.8 thou/uL (1.20-3.40); #Neutrophils 7.6 thou/uL (1.40-6.50); %Basophils 1.4 % (0.0-1.0); %Lymphocytes 23.2 % (21.0-51.0); %Monocytes 8.6 % (0.0-10.0); %Neutrophils 63.9 % (42.0-75.0); Hemoglobin 16.8 g/dL (14.0-18.0); Mean Corpuscular HGB CONC 34.1 g/dL (32.0-36.0); Mean Corpuscular Hemoglobin 31.9 pg (27.0-31.0); Mean Corpuscular Volume 93.7 fL (78.0-98.0); Mean Platelet Volume 8.4 fL (7.4-10.4); Platelet Count 251 thou/uL (130-400); RBC Distribution Width 12.2 % (11.5-14.5); Red Blood Cell (RBC) Count 5.27 mill/uL (4.70-6.10); White Blood Cell (WBC) Count 11.9 thou/uL (4.8-10.8)
[2019-05-05 08:17] LABS: INR-International Normal Ratio 0.9; PTT 29.2 SEC (22.9-36.1)
[2019-05-05] MEDS ORDERED: Fentanyl 100 MCG/2 ML VIAL ONE (08:31)
[2019-05-05] MEDS ORDERED: Midazolam HCl 2 mg/2 ml Vial ONE (08:32)
[2019-05-05] MEDS ORDERED: Sodium Bicarbonate 2.5 MEQ/5 ML VIAL ONE (08:32)
[2019-05-05 09:08] VITALS: BP 126/66; TEMP 98.6
--- NOTE | 2019-05-05 12:02 | CT ---
PROCEDURE: CT Lung Perc Biopsy PROVIDED CLINICAL HISTORY: Cavitary right upper lobe mass. Biopsy of the mass was requested as there was evidence of FDG uptake seen on PET scan. COMPARISON: PET/CT exam on 04/25/2019 and CTA chest on 03/05/2019 TECHNIQUE: The procedure including the risks and complications including bleeding, infection, pneumothorax, or a ir embolism was discussed with the patient at this time. Patient verbally expressed understanding and agreed to proceed with the procedure. Informed consent was obtained. Patient was initially placed on the CT scan table in the prone position. Limited noncontrasted CT sca n was obtained through the thorax. However, the lesion was unable to be easily accessed posteriorly due to overlying ribs. As result, the patient was then placed on the CT scan table in the supine posi tion and limited noncontrasted CT scan was obtained with grid localizer in place. An area overlying the right anterior chest was marked and then meticulously prepped and draped in the usual sterile fas hion. The skin and subcutaneous tissues were infiltrated with buffered 1% lidocaine for local anesthesia. A small skin incision was made. A 19-gauge guide needle was advanced followed by obtaining [address] images. Needle tr ajectory was corrected and advanced. This was repeated until the needle was placed just within the anterior aspect of the right upper lobe. However, imaging after placement of the needle within the mann ng demonstrate the needle was likely going to be just lateral to the area of soft tissue density in the cavitary mass. As result, the needle was withdrawn and redirected and advanced again followed by axial noncontrasted CT images. This was repeated until the tip of the needle was placed at the margin of the soft tissue component of the cavitary mass. Only a very tiny pneumothorax was seen at t his time. The inner stylette was removed while injecting saline into the hub of the needle. A 20-gauge core needle biopsy specimen was obtained utilizing coaxial technique, and the needle was aga in withdrawn while injecting saline, and the introducer needle was then replaced. A second biopsy was repeated, but no adequate tissue was obtained. Again saline was dripped into the hub of the needl e upon exchange of the introducer needle and biopsy needle, and a third coaxial biopsy was obtained. The inner stylette was replaced while again dripping saline into the hub of the needle. At this time, the patient complained of difficulty breathing. Limited noncontrasted CT images were ob tained demonstrating a right-sided pneumothorax. As result, the needle was withdrawn while aspirating the gas. However, the pneumothorax persisted, and the patient continued to complain of hang rtness of breath. As result, a noncontrasted CT scan was obtained with a needle cap overlying the chest. An area was prepped in usual fashion. Skin and subcutaneous tissues were infiltrated with buff ered 1% lidocaine for local anesthesia. Small skin incision was made. A 9 Sudanese thoracostomy tube with needle was advanced into the pleural space. After the return of gas, the catheter was advanced, and the needle was withdrawn. The catheter was pl aced to wall suction to aspirate the gas secondary to pneumothorax. A Heimlich valve was then placed. Patient continued to complain of shortness of breath, and as a result, a follow-up CT thorax was performed which demonstrated only a tiny residual right anterior pneumothorax with improved aeration of the lung. Due to patient's respiratory status and complaint of difficulty breathing, a co de green was initiated due to respiratory distress. Dr. Schulz, rubber goods tester, and Dr. Arteaga from the emergency department were available for assistance with patient's respiratory status. Lakeshia junior was transported to the emergency department for further care. IMPRESSION: 1. Cavitary right upper lobe mass with scattered small pulmonary nodules. 2. Technically successful biopsy of right upper lobe cavitary mass. Atypical cells were noted on init ially obtained specimen. Due to patient's decompensation and respiratory status, no additional biopsies were obtained. Pathology is currently pending. 3. Development of a moderate size right pneumothorax with placement of a [address] Schulz is managing patient's respiratory status.
== END 2019-05-05 10:30 | disposition short-term general hospital (02) ==
LOC: RAD 07:47
PROVIDERS: ATTEND Internal Medicine
PROC: BB24ZZZ Computerized Tomography (CT Scan) of Bilateral Lungs (ICD-10-PCS; principal; 2019-05-05)
PROC: 0BB43ZX Excision of Right Upper Lobe Bronchus, Percutaneous Approach, Diagnostic (ICD-10-PCS; principal; 2019-05-05)
DX: C34.11 Malignant neoplasm of upper lobe, right bronchus or lung (principal); I10 Essential (primary) hypertension; J44.9 Chronic obstructive pulmonary disease, unspecified; F17.210 Nicotine dependence, cigarettes, uncomplicated; Z79.82 Long term (current) use of aspirin; Z79.84 Long term (current) use of oral hypoglycemic drugs; Z79.899 Other long term (current) drug therapy
CPT/HCPCS: 32405; 36415; 77012; 85025; 85610; 85730; J2250; J3010

== ENCOUNTER 2019-05-05 10:38 | Inpatient (IN) | payer OTHER, MEDICAID ==
[~2019-05-05 10:38] MED LIST changes: +Amiodarone 150 MG/3 ML VIAL ONE; +Heparin 10,000 UNITS/ 10 ML VIAL ONE; -Iopamidol-370 76% 500 ML 1 ML ONE; +Lidocaine 2% PF 100 mg/5 ml Syringe ONE
[2019-05-05] MEDS ORDERED: Propofol 1,000 MG/100 ML VIAL IV ONE (10:44)
[2019-05-05] MEDS ORDERED: Lidocaine 1% (PF) 30 ML VIAL ONE (10:56)
[2019-05-05] MEDS ORDERED: Norepinephrine 8 MG/0.9% NS 250 ML ONE (11:07)
[2019-05-05] MEDS ORDERED: Aspirin 300 MG Suppository ONE (11:16)
[2019-05-05] MEDS ORDERED: Fentanyl 100 MCG/2 ML VIAL ONE ×3 (11:27→13:37)
[2019-05-05 11:32] LABS: #Basophils 0.2 thou/uL (0.0-0.2); #Eosinphils 0.3 thou/uL (0.0-0.7); #Lymphocytes 5.5 thou/uL (1.20-3.40); #Monocytes 1.1 thou/uL (0.11-0.59); #Neutrophils 7.2 thou/uL (1.40-6.50); %Basophils 1.3 % (0.0-1.0); %Eosinophils 2.2 % (0.0-10.0); %Lymphocytes 38.7 % (21.0-51.0); %Monocytes 7.5 % (0.0-10.0); %Neutrophils 50.3 % (42.0-75.0); Hemoglobin 15.8 g/dL (14.0-18.0); Mean Corpuscular HGB CONC 33.7 g/dL (32.0-36.0); Mean Corpuscular Hemoglobin 31.8 pg (27.0-31.0); Mean Corpuscular Volume 94.4 fL (78.0-98.0); Mean Platelet Volume 8.5 fL (7.4-10.4); Platelet Count 262 thou/uL (130-400); RBC Distribution Width 12.2 % (11.5-14.5); Red Blood Cell (RBC) Count 4.96 mill/uL (4.70-6.10); White Blood Cell (WBC) Count 14.2 thou/uL (4.8-10.8)
--- NOTE | 2019-05-05 11:32 | RAD ---
Exam: Chest one view HISTORY:Status post pneumothorax; percutaneous right lung biopsy Comparison: 03/05/2019 FINDINGS: Cardiac silhouette: Normal Aorta: Unremarkable Pulmonary vessels: Normal Costophrenic angles: Clear LUNGS: Patchy interstitial opacities predominantly in the right lung. More focal opacity in the right upper lobe is noted. Pneumothorax: Small right apical pneumothorax is identified Lines and tubes: Endotracheal tube at the level of clavicles. Nasogastric tube is incompletely evalua thien but appears to be at the level of the diaphragm. Dedicated AP abdomen radiograph is recommended. Small bore right-sided chest tube is identified. Osseous abnormalities: None IMPRESSION: 1. Small right apical pneumothorax 2. Lines and tubes as above. AP abdomen radiograph is recommended to assess the termination the nasog astric tube.
[2019-05-05] MEDS ORDERED: Heparin 1,000 UNITS/ML VIAL ONE (11:35)
[2019-05-05 11:36] LABS: Bacteria/HPF None Seen HPF (None Seen); Bilirubin Negative (Negative); Blood, Urine Negative (Negative); Clarity Clear (Clear); Glucose, Urine (Dipstick) 500 mg/dL (Negative); Leukocyte 75 Leu/uL (Negative); Nitrite Negative (Negative); Protein, Urine (Dipstick) Negative (Neg-Trace); RBC/HPF 0-3 HPF (0-3); Squamous Epithelial 0-3 HPF (0-3); Urobilinogen Normal mg/dL (Less than 2)
[2019-05-05] MEDS ORDERED: fentaNYL Citrate/PF 2,000 MCG in Sodium Chloride 0.9% 60 ML IV SCH ×2 (11:36→17:33)
--- NOTE | 2019-05-05 11:36 | RAD ---
KUB: 05/05/2019 COMPARISON: None HISTORY: Nasogastric tube placement FINDINGS: There is a nasogastric tube extending into the left upper quadrant. Supine imaging limits a ssessment for free air and small bowel obstruction. Stent graft material overlies the abdominal aorta and bilateral common iliac arteries. IMPRESSION: Nasogastric tube in place.
[2019-05-05 11:42] LABS: PTT 27.1 SEC (22.9-36.1); Prothrombin Time 12.8 SEC (12.0-14.7)
[2019-05-05] MEDS ORDERED: Acetaminophen 325 MG TAB PO PRN (11:44)
[2019-05-05] MEDS ORDERED: Senokot S 8.6-50 MG TAB PO PRN (11:44)
[2019-05-05] MEDS ORDERED: Ipratropium Bromide 2.5 ml Neb NEB SCH (12:00)
[2019-05-05 12:03] LABS: ALT (SGPT) 14 U/L (8-55); AST (SGOT) 9 U/L (5-34); Albumin 3.8 g/dL (3.4-4.8); Alkaline Phosphatase 86 U/L (40-110); Anion Gap 17 mmol/L (10-20); BUN (Urea Nitrogen) 23 mg/dL (8.4-25.7); Bilirubin, Total 0.4 mg/dL (0.2-1.2); CK (CPK) 72 U/L (30-200); Calc. Creatinine Clearance 0 mL/min (70-130); Calcium 8.5 mg/dL (7.8-10.44); Carbon Dioxide 21 mmol/L (23-31); Chloride 103 mmol/L (98-107); Estimated GFR-MDRD 62; Globulin 2.4 g/dL (2.4-3.5); Glucose 352 mg/dL (80-115); Potassium 5.2 mmol/L (3.5-5.1); Protein, Total 6.2 g/dL (5.8-8.1); Sodium 136 mmol/L (136-145)
[2019-05-05] MEDS ORDERED: Vasopressin 40 UNIT, Admixture Fee 1 EACH in Sodium Chloride 0.9% 100 ML IV SCH (12:30)
[2019-05-05] MEDS ORDERED: Heparin 10,000 UNITS/1 ML VIAL ONE (14:16)
[2019-05-05] MEDS ORDERED: Atropine Sulfate 1 mg/1 ml Vial ONE (14:42)
[2019-05-05] MEDS ORDERED: Atropine Sulfate 1 mg/10 ml Syringe ONE (14:42)
[2019-05-05] MEDS ORDERED: Aggrastat 12.5 MG/250 ML 250 ML ONE (15:08)
[2019-05-05] MEDS ORDERED: Lidocaine 2% PF 100 mg/5 ml Syringe ONE (15:39)
[2019-05-05] MEDS ORDERED: TICAGRELOR 90 MG TABLET PO SCH (16:56)
[2019-05-05 16:58] LABS: Actual Bicarbonate (HCO3a) 16.5 mEq/L (22-28); Base Excess (BEa) -12.3 mEq/L (-2.0 to +3.0); CO2 Tension 48.5 mmHg (35.0-45.0); Calcium, Ionized 1.05 mmol/L (1.12-1.30); Carboxyhemoglobin (COHb) 1.9 gm% (0.0-3.0); Hemoglobin (Hb) 14.9 g/dL (14.0-18.0); O2 Tension (PaO2) 163.1 mmHg (> 80.0)
[2019-05-05 17:03] LABS: Lactic Acid 3.3 mmol/L (0.5-2.2)
[2019-05-05 17:05] LABS: Puncture Site ALINE; pH, Arterial 7.15 (7.35-7.45)
[2019-05-05 17:06] LABS: ALV-art Gradient 68.605 (0-20)
[2019-05-05] MEDS ORDERED: Norepinephrine 8 MG/0.9% NS 250 ML IVPB PRN (17:27)
[2019-05-05] MEDS ORDERED: SYSTANE 3.5 GM TUBE EA EYE PRN (17:27)
[2019-05-05] MEDS ORDERED: Ventilator Sedation Protocol 1 EACH FS SCH (17:30)
[2019-05-05] MEDS ORDERED: Lorazepam 2 MG/ML VIAL SLOW IVP PRN (17:33)
[2019-05-05] MEDS ORDERED: Fentanyl BOLUS 250 ML IVPB PRN (17:33)
[2019-05-05] MEDS ORDERED: Morphine 2 MG/ML SYRINGE SLOW IVP PRN (17:33)
[2019-05-05] MEDS ORDERED: DISCONTINUE PREVIOUS NARCOTIC PAIN MEDICATIONS AND BENZODIAZEPINES FS SCH (17:33)
[2019-05-05] MEDS ORDERED: Propofol BOLUS 1,000 MG/100 ML VIAL IV PRN (17:33)
[2019-05-05] MEDS: Propofol 1,000 MG/100 ML VIAL IV PRN (17:48)
--- NOTE | 2019-05-05 18:35 | CON ---
DATE OF CONSULTATION: 05/05/2019 INDICATION FOR CONSULTATION: This is a 64-year-old patient with possible inferior myocardial infarction acutely. HISTORY OF PRESENT ILLNESS: This is a very unfortunate 64-year-old gentleman, who has a history according to the records of possible lih-VR-pdexlnb elevation myocardial infarction in the past and history of congestive heart failure, was scheduled to undergo stress testing and this was not approved actually by Medicaid and he has not had a stress test. As far as his and family concern, he has never had a stress test. He was in an outpatient facility today to undergo a lung biopsy due to cavitary lesion and another mass that is apparently in the lungs. He was in the CT scanner and apparently had developed a pneumothorax after the biopsy was performed. He then developed acute respiratory failure and EKG changes. He required intubation. He was taken to the emergency room. There, it was noted he had an ST-segment changes inferiorly compatible with possible inferior myocardial infarction. The patient then developed hypotension, required pressor support. He then had at least two episodes of cardiac arrest with ventricular fibrillation. He required CPR multiple times and then, actually had some recovery. He is on maximum dose of Levophed at this time. He has been given 3 L of IV fluids. A bedside brief echocardiogram showed ejection fraction to be about perhaps 30% to 35% at best. However, this is post CPR. He also has had an echocardiogram previously when he was on one of his last admissions in the hospital and reportedly at that time, ejection fraction was at 40% to 45% that I have this with the records recorded, but he has had no previous workup for his coronary artery disease such as cardiac catheterization or a stress test. At this time, he appears to be somewhat more stable after he has been given IV amiodarone. He has been given IV Levophed and he has been given multiple doses of IV epinephrine. Blood pressure is now in the 120s, previously quite some time was blood pressure is in the 60s and 70s. I have spoken with his family and his is agreeable that we proceed with cardiac catheterization at least to rule out evidence of severe coronary artery disease or to evaluate the left ventricular function to see if there is any assistance we can give to this patient otherwise. His troponin I in the past has always been slightly has been indeterminate and last admission was 0.03 anywhere from 05/08 to . I do not have any laboratory data at this time, except for his WBC of 14.2 and hemoglobin 15.8. His last renal function was normal. His INR is 0.9. PAST MEDICAL HISTORY: Significant for diabetes, hypertension, dyslipidemia, and COPD. He has peripheral vascular disease. He has undergone I believe an aortic stent or either a bioprosthesis by Dr. Garber for aortic aneurysm. He had an endovascular abdominal aortic aneurysm repair by Dr. Garber in October of 2017. I believe he has had stents placed, uncertain exactly where they are. ALLERGIES: THERE ARE NO KNOWN DRUG ALLERGIES. MEDICATIONS: At presently, he is takin. Coreg 6.25 mg one b.i.d. 2. Furosemide 40 mg a day. 3. Lisinopril 5 mg a day. 4. Simvastatin 40 mg once a day. 5. Lyrica 75 mg a day. 6. Glipizide 10 mg half an hour before breakfast daily. 7. Metformin 1000 mg once a day. 8. Spiriva HandiHaler nebulizer, he takes one capsule once a day. 9. ProAir aerosol solution one puff every 4 hours. 10. He is on citalopram hydrobromide 40 mg tablets once a day. 11. Aspirin 81 mg a day. 12. He also was given a bolus of heparin in the emergency room either 4000 or 5000. FAMILY HISTORY: Noncontributory to his present situation. REVIEW OF SYSTEMS: From the , he has been having some coughing recently complaining of decreased vision and it is typical shortness of breath. He had no GI or complaints. No claudication type symptoms. No lower extremity edema. He did have some when he was previously admitted for congestive heart failure. Neurologically, he has had no seizures or syncope. PHYSICAL EXAMINATION: GENERAL: Reveals an elderly, ill kept gentleman. He appears older than his stated age. He is on the ventilator. He is in the emergency room. HEENT: Shows head to be normocephalic and atraumatic. Carotid pulses are present, somewhat decreased. CHEST: Decreased breath sounds throughout, I did not hear rales or rhonchi. CARDIOVASCULAR: Barely audible due to the hyperinflation of the lungs, most likely. I cannot hear any significant cardiac sounds. ABDOMEN: Shows abdomen to be soft and nontender. Could not elicit any pain at this time. I do not feel any masses. Femoral pulses are present, somewhat decreased , but are present. EXTREMITIES: Showed no clubbing or cyanosis. No edema is present. Pedal pulses are not palpable by this examiners. He did have radial pulses. NEUROLOGIC: The patient appears to be relatively intact, but he is on the ventilator. He has no focal motor weakness. According to the family, he has been able ambulate. There has been no other significant abnormalities such as seizures. The patient is somewhat sedated and intubated. In the emergency room, he was given propofol. DIAGNOSTIC STUDIES: His EKG shows a sinus rhythm with a somewhat wide-complex comply with what appears to be incomplete right bundle-branch block and also has ST-segment elevation in the inferior leads compatible probably with acute inferior myocardial infarction. LABORATORY DATA: As noted above. I do not have any cardiac enzymes. ASSESSMENT AND PLAN: 1.Acute Inferior STEMI. The patient has been here in the emergency room, I have been here for at least 2 hours with the patient. With critical care of the patient, I have placed a central line in the patient in the right femoral vein. Also, he has a right femoral artery line placed by me and I have discussed this with the and we will opt to take the patient to the cardiac excavation laborer just to determine the extent of his coronary artery disease, and after that, he will be admitted to the intensive care unit and we will continue on pressors as well as IV fluids as well as a ventilator. I did explain the procedure and the risks to his to include bleeding, infection, possible myocardial infarction, CVA, renal insufficiency, allergic contrast reaction, and even the possibility of . She understands and she has agreed to proceed and the patient is unable to give consent to himself and I feel this is the emergency situation at this time. 2. COPD 3.Lung mass, R/O malignancy. Job ID: [id number] [facility]
--- NOTE | 2019-05-05 18:56 | CON ---
DATE OF CONSULTATION: 05/05/2019 SERVICE: Pulmonary Medicine. REASON FOR CONSULTATION: ICU patient. HISTORY OF PRESENT ILLNESS: The patient is a 64-year-old white male with past medical history significant for extensive tobacco abuse. He ultimately had a pulmonary nodule. This was a high-risk nodule for a malignancy. He presented in the outpatient setting for an elective transcutaneous biopsy. This was performed, but immediately postop, the patient developed increasing shortness of breath and started becoming obtunded. A repeat CT showed that he had a pneumothorax, a chest tube was placed demonstrating good re-expansion of that lung. Ultimately, he continued to decompensate and required intubation in the Emergency Department. Initially, he has stabilized, but the chest x-ray showed an ST-elevation myocardial infarction. Initial thoughts were that this was secondary from his recent stressful/hypoxemic event. A repeat EKG look a touch more reassuring and approximated more closely, prior to his baseline EKG. That being said, later on, he started dropping his blood pressures. He was taken emergently to the tender labor, and there was a lesion identified. It was quite challenging to open this lesion up. Ultimately, the blood flow was reestablished after stent was placed. During this process, he required multiple rounds of chest compressions, as well as over eight defibrillation shocks. After the last event, he is nodding yes and no appropriately, and following some simple commands. He has requested that we no longer give him any more shocks or chest compressions. That being said, this vessel has opened back up. Disguise of the heart is quite poor currently and we are hopeful that this will open up through time. He cannot provide any additional elements of the history because he is requiring intubation, and some degree of sedation at this point. PAST MEDICAL HISTORY: 1. COPD. 2. Chronic hypoxic respiratory failure. 3. Dyslipidemia. 4. Hypertension. 5. Type 2 diabetes mellitus. 6. Peripheral vascular disease. 7. Coronary artery disease. 8. Chronic back pain. PAST SURGICAL HISTORY: 1. Repair of abdominal aortic aneurysm. 2. Percutaneous stents placed in the bilateral lower extremities. 3. Transcutaneous biopsy of the lung mass. 4. Thoracostomy tube placement in the right anterior chest. 5. Percutaneous coronary intervention with placement of stent. ALLERGIES: NO KNOWN DRUG ALLERGIES. MEDICATIONS: List of the patient's inpatient medications were reviewed. No specific updates were made at this time. SOCIAL HISTORY: He continues to smoke on a daily basis. He has a greater than 40 pack-year history of smoking. He denies any alcohol or illicit drugs. He has no exposure to chemicals, dust, asbestos, or tuberculosis. FAMILY HISTORY: Positive for mesothelioma. REVIEW OF SYSTEMS: Cannot be obtained as the patient is currently intubated and sedated. PHYSICAL EXAMINATION: VITAL SIGNS: Afebrile, pulse 98, respirations 14, and saturation 94%, currently on 40% FiO2 and a PEEP of 5. GENERAL: The patient is intubated and sedated. HEENT: Normocephalic and atraumatic. Sclerae white. Conjunctivae pink. Oral mucosa is moist without lesions. LUNGS: Very poor air entry with a prolonged expiratory phase. Crackles and rhonchi are both present. HEART: Normal rate. Regular. ABDOMEN: Soft. Nontender and nondistended. Bowel sounds are positive. MUSCULOSKELETAL: No cyanosis or clubbing. No pitting edema. NEUROLOGIC: Grossly nonfocal even after code event. LABORATORY DATA: WBC 14.2, hemoglobin 15.8, and platelets 262,000. INR 1.0. A pH of 7.15, pCO2 of 48, and pO2 of 163 on a rate of 17. Lactate is trending downward to 3.3, creatinine 1.19, and potassium 5.2. Liver function studies are unremarkable. Initial troponin was 0.01. Urinalysis is negative. IMAGIN. Chest x-ray demonstrates thoracostomy tube is in good position. There is a small pneumothorax present on the right. There is an endotracheal tube, which terminates a touch high (this has subsequently been advanced). There is an enteric catheter that courses midline, but I cannot see the tip of it passing below the field of view. 2. KUB demonstrates enteric catheter in the region of the stomach. ASSESSMENT: 1. Acute hypoxic respiratory failure. 2. Acute myocardial infarction. 3. Ventricular tachycardia/ventricular fibrillation arrest, status post multiple rounds of chest compressions with intact neurologic function. 4. Chronic obstructive pulmonary disease with acute exacerbation. Pulmonary nodule, status post biopsy. 5. Iatrogenic pneumothorax on the right, status post chest tube. DISCUSSION AND PLAN: The patient is doing a little bit better since his blood vessel was opened up. It is not clear what his heart function is going to look like through time; however. Echocardiogram will be performed tomorrow morning once the dust clears a touch. Supportive care will be continued. We will wean pressors through time. I will wean the ventilator. I will go ahead and start nebulized medications and steroids. He got an appropriate dose of antibiotic in the Emergency Department. I do not see a need for ongoing therapy. We will try to minimize fluids through time as he already had over 2.5 L of fluid in his resuscitative efforts. Critical Care will follow. CRITICAL CARE TIME: 120 minutes. Job ID: [id number]
[2019-05-05] MEDS ORDERED: Dextrose 50% Abboject 50 ML SYRINGE IVP PRN (19:35)
[2019-05-05] MEDS ORDERED: Dextrose 5% in Water 1,000 ML IV PRN (19:35)
[2019-05-05] MEDS ORDERED: Sodium Chloride 0.9% 1,000 ML IV SCH (20:15)
[2019-05-05] MEDS: Amiodarone 450 MG, Admixture Fee 1 EACH in Dextrose 5% in Water 250 ML IVPB SCH (20:16)
--- NOTE | 2019-05-05 20:18 | HP ---
CHIEF COMPLAINT: Acute hypoxic respiratory failure, preceded by pneumothorax requiring intubation. HISTORY OF PRESENT ILLNESS: A 64-year-old male with a history of severe COPD, chronic systolic heart failure, pulmonary cavities, and pulmonary nodules as well as history of abdominal aortic aneurysm, hypertension, type 2 diabetes mellitus, and tobacco abuse, presented in the outpatient setting for a lung biopsy. The patient is known to have some cavitary lesion as well as pulmonary nodules. For part of the workup, he came today for the lung biopsy. It appears that he had a small right apical pneumothorax. Because of that, he was brought into the ER. At that time , he was quite hypoxic with a sat of 60% at least for 4-5 minutes and during the transport. He was intubated in the ER for acute hypoxic respiratory failure with hypoxia. Clinical Research Coordinator was consulted. It appears that he also had an inferior infarct STEMI in the EKG. Dr. Diaz, paper roll machine operator was called immediately and further evaluation revealed that this is possibly due to demand ischemia and he was quite hypotensive. The plan was after hemodynamics stabilization, possible cath evaluation. His blood pressure was 68 to 50, they started him on a bolus as well as Levophed. Shortly after that at 11:45, he went into VFib. Rounds of epi and amiodarone and CPR revived him at 11:55, they started on amiodarone drip. The patient was taken to the cath lab radiological technologist to address his STEMI/inferior wall SD. During my exam, the patient was quite agitated requiring some sedation; however , his blood pressure is quite low. Dr. Diaz and the ER physician are at bedside. Plan for Levophed drip. REVIEW OF SYSTEMS: Not obtainable. ALLERGIES: HE HAS NO KNOWN DRUG ALLERGIES. PAST MEDICAL HISTORY: 1. Chronic systolic heart failure. 2. Severe COPD. 3. Chronic hypoxic respiratory failure. 4. Pulmonary cavities and nodules. 5. Abdominal aortic aneurysm. 6. Hypertension. 7. Type 2 diabetes mellitus. 8. Tobacco abuse. FAMILY HISTORY: Not obtained. FAMILY HISTORY: Not obtained. HOME MEDICATIONS: 1. Metformin 1000 mg daily. 2. Glipizide 10 mg twice a day. 3. Simvastatin 20 mg. 4. Pregabalin 75 mg twice a day. 5. Lisinopril 10 mg twice a day. 6. Lasix 40 mg daily. 7. Coreg 3.125 mg twice a day. 8. Aspirin 81 mg daily. PHYSICAL EXAMINATION: GENERAL: The patient is intubated currently. He has extensive edema around his shoulders on both sides. He also has a small rash on his abdomen as well as on his legs. He is little agitated currently. Complete physical exam not obtained. ABDOMEN: He does have good bowel sounds. EXTREMITIES: Pulses are palpable. LABORATORY DATA: WBC 14.2, platelet 262, hemoglobin 15.8. Potassium is 5.2, lactic acid 4.3, glucose is 352. Sodium 136, bicarb is 21, BUN 23, creatinine 1.19. EKG showed ST elevations in the inferior leads. Chest x-ray, left apical pneumothorax. IMPRESSION: A 64-year-old male with history of chronic obstructive pulmonary disease and severe peripheral vascular disease/abdominal aortic aneurysm as well as a systolic heart failure, presenting with the followin. Status post lung biopsy. 2. Left apical pneumothorax. 3. Acute hypoxic respiratory failure requiring intubation. 4. Sepsis secondary to hypovolemia septic shock requiring vasopressors. 5. Inferior wall myocardial infarction/ST-elevation myocardial infarction. PLAN: The patient has gone for cath now. After the procedure, he will be admitted in the ICU. We will follow with Dr. Schulz, modern greek studies professor, as well as Dr. Diaz, paper roll machine operator. His chronic medical conditions will be managed after his stabilization. We will follow the clinical course. Job ID: [id number] [facility]
[2019-05-05] MEDS ORDERED: Aggrastat 12.5 MG/250 ML 250 ML IVPB SCH (21:00)
[2019-05-05] MEDS ORDERED: glipiZIDE 5 MG TAB PO SCH (21:00)
[2019-05-05] MEDS ORDERED: Atorvastatin Calcium 20 MG TAB PO SCH (21:00)
[2019-05-05] MEDS ORDERED: Lisinopril 5 MG TAB PO SCH (21:00)
[2019-05-05] MEDS ORDERED: Carvedilol 3.125 MG TAB PO SCH (21:00)
[2019-05-05] MEDS ORDERED: Sodium Bicarb 50 MEQ/50 ML VIAL ONE ×2 (21:33→21:35)
[2019-05-05] MEDS: Sodium Chloride 0.45% 1,000 ML IV SCH (21:44)
[2019-05-05] MEDS ORDERED: Sodium Bicarb 50 MEQ/50 ML VIAL IVP SCH (22:00)
[2019-05-05] MEDS: Famotidine/PF 20 mg/2ml Vial SLOW IVP SCH (22:17)
[2019-05-05 22:19] LABS: Troponin I 443.616 ng/mL (< 0.028)
[2019-05-06 00:15] LABS: #Lymphocytes 0.6 thou/uL (1.20-3.40); #Monocytes 1.2 thou/uL (0.11-0.59); #Neutrophils 16.2 thou/uL (1.40-6.50); %Basophils 0.2 % (0.0-1.0); %Eosinophils 0.1 % (0.0-10.0); %Lymphocytes 3.2 % (21.0-51.0); %Monocytes 6.5 % (0.0-10.0); Hemoglobin 14.1 g/dL (14.0-18.0); Mean Corpuscular Hemoglobin 30.8 pg (27.0-31.0); Mean Corpuscular Volume 93.2 fL (78.0-98.0); Mean Platelet Volume 9.1 fL (7.4-10.4); Platelet Count 210 thou/uL (130-400); RBC Distribution Width 12.2 % (11.5-14.5); Red Blood Cell (RBC) Count 4.57 mill/uL (4.70-6.10); White Blood Cell (WBC) Count 17.9 thou/uL (4.8-10.8)
[2019-05-06] MEDS: Propofol 1,000 MG/100 ML VIAL IV PRN ×2 (01:01→06:24)
[2019-05-06 01:32] LABS: Troponin I 444.993 ng/mL (< 0.028)
[2019-05-06] MEDS: Insulin Regular 300 UNITS/3 ML VIAL SC PRN ×4 (04:09→18:11)
[2019-05-06 04:40] LABS: ALT (SGPT) 195 U/L (8-55); AST (SGOT) 670 U/L (5-34); Albumin 3.4 g/dL (3.4-4.8); Alkaline Phosphatase 68 U/L (40-110); Anion Gap 15 mmol/L (10-20); BUN (Urea Nitrogen) 24 mg/dL (8.4-25.7); Bilirubin, Total 0.6 mg/dL (0.2-1.2); Calc. Creatinine Clearance 90 mL/min (70-130); Calcium 7.9 mg/dL (7.8-10.44); Carbon Dioxide 22 mmol/L (23-31); Chloride 107 mmol/L (98-107); Estimated GFR-MDRD 67; Globulin 2.5 g/dL (2.4-3.5); Glucose 360 mg/dL (80-115); Potassium 4.7 mmol/L (3.5-5.1); Protein, Total 5.9 g/dL (5.8-8.1); Sodium 139 mmol/L (136-145)
[2019-05-06 04:57] LABS: Hemoglobin 13.8 g/dL (14.0-18.0); Mean Corpuscular HGB CONC 33.7 g/dL (32.0-36.0); Mean Corpuscular Hemoglobin 31.2 pg (27.0-31.0); Mean Corpuscular Volume 92.9 fL (78.0-98.0); Mean Platelet Volume 9.4 fL (7.4-10.4); Platelet Count 201 thou/uL (130-400); RBC Distribution Width 12.3 % (11.5-14.5); Red Blood Cell (RBC) Count 4.41 mill/uL (4.70-6.10); White Blood Cell (WBC) Count 14.2 thou/uL (4.8-10.8)
[2019-05-06 05:18] LABS: Band 4 % (5-11); Lymphocytes 4 % (21-51); MDiff Complete? YES; Monocytes 6 % (0-10); Neutrophil 86 % (42-75); Platelet Morphology Comment Appears Adequate; RBC Morphology Normal
[2019-05-06] MEDS ORDERED: Furosemide 40 MG TAB PO SCH (07:30)
[2019-05-06 07:35] LABS: Actual Bicarbonate (HCO3a) 21.6 mEq/L (22-28); Base Excess (BEa) -3.4 mEq/L (-2.0 to +3.0); CO2 Tension 38.9 mmHg (35.0-45.0); Carboxyhemoglobin (COHb) 0.8 gm% (0.0-3.0); Hemoglobin (Hb) 13.1 g/dL (14.0-18.0); O2 Tension (PaO2) 79.3 mmHg (> 80.0); Potassium - ABG Lab 3.95 mmol/L (3.70-5.30); pH, Arterial 7.36 (7.35-7.45)
[2019-05-06 07:36] LABS: ALV-art Gradient 93.105 (0-20); Puncture Site ALINE
[2019-05-06 08:17] LABS: #Basophils 0.1 thou/uL (0.0-0.2); #Lymphocytes 0.9 thou/uL (1.20-3.40); #Monocytes 1.8 thou/uL (0.11-0.59); %Basophils 0.6 % (0.0-1.0); %Eosinophils 0.2 % (0.0-10.0); %Lymphocytes 5.2 % (21.0-51.0); %Monocytes 10.7 % (0.0-10.0); %Neutrophils 83.4 % (42.0-75.0); Hemoglobin 13.7 g/dL (14.0-18.0); Mean Corpuscular HGB CONC 33.1 g/dL (32.0-36.0); Mean Corpuscular Hemoglobin 30.7 pg (27.0-31.0); Mean Corpuscular Volume 92.7 fL (78.0-98.0); Mean Platelet Volume 8.7 fL (7.4-10.4); Platelet Count 208 thou/uL (130-400); RBC Distribution Width 12.4 % (11.5-14.5); Red Blood Cell (RBC) Count 4.45 mill/uL (4.70-6.10); White Blood Cell (WBC) Count 16.8 thou/uL (4.8-10.8)
[2019-05-06] MEDS: Amiodarone 450 MG, Admixture Fee 1 EACH in Dextrose 5% in Water 250 ML IVPB SCH (08:39)
[2019-05-06] MEDS: TICAGRELOR 90 MG TABLET PO SCH ×2 (08:40→20:33)
[2019-05-06] MEDS: Sodium Chloride 0.45% 1,000 ML IV SCH (08:40)
[2019-05-06] MEDS: Aspirin Chewable 81 MG TAB PO SCH (08:40)
[2019-05-06] MEDS: Citalopram 20 MG TAB PO SCH (08:40)
[2019-05-06] MEDS: Famotidine/PF 20 mg/2ml Vial SLOW IVP SCH ×2 (08:41→20:33)
[2019-05-06] MEDS ORDERED: methylPREDNISolone Sod Succ 40 MG VIAL IVP SCH (09:00)
[2019-05-06] MEDS ORDERED: FLU VACC QS2019-20(6MOS UP)/PF 60 MCG/0.5 ML SYRINGE IM ONE (09:00)
[2019-05-06] MEDS ORDERED: TIOTROPIUM BROMIDE INH SCH (09:00)
[2019-05-06 09:03] LABS: Critical Call Chem Troponin I RESULT DECREASING; Troponin I 274.792 ng/mL (< 0.028)
--- NOTE | 2019-05-06 10:07 | RAD ---
CHEST 1 VIEW: Date: 05/06/2019 HISTORY: Ventilated patient. COMPARISON: Radiograph prior day. FINDINGS: There is a small right pneumothorax, similar to the comparison examination with a right-sided thoraco stomy tube. Left lung is relatively clear. Right-sided subcutaneous emphysema is present. Endotracheal tube tip over the clavicles. Enteric tube tip below diaphragm, out of field of view. IMPRESSION: Trace right apical pneumothorax persists. POS: OFF
--- NOTE | 2019-05-06 12:05 | PRG ---
DATE OF SERVICE: 05/06/2019 SERVICE: Pulmonary Medicine. INTERVAL HISTORY: The patient is doing fantastic from a respiratory standpoint. Hemodynamics has stabilized overnight. His oxygen requirements have decreased, and his expiratory phase has much improved. He is cool, calm, and collected. His only incident overnight was hematuria but otherwise, he did not have any fevers or additional events. PHYSICAL EXAMINATION: VITAL SIGNS: Afebrile, pulse 61, blood pressure 143/66, respirations 20, saturation 97%, currently on 21% FiO2 and a PEEP of 5. GENERAL: The patient is intubated. He is awake and collected. HEENT: Normocephalic and atraumatic. Sclerae white. Conjunctivae pink. Oral mucosa is moist without lesions. LUNGS: Decreased air entry bilaterally. Rhonchi and wheezing are both present. No crackles. HEART: Normal rate, regular. ABDOMEN: Soft, nontender, nondistended. Bowel sounds are positive. MUSCULOSKELETAL: No cyanosis or clubbing. There is no pitting in the bilateral lower extremities. NEUROLOGIC: Grossly nonfocal. LABORATORY DATA: WBC 16.8, hemoglobin 13.7, and platelets 208,000. INR 1.0. PH 7.36, pCO2 of 38, PO2 of 79 while on 31% FiO2 corresponding to an excellent saturation. Troponin peaked. Urinalysis is otherwise unremarkable. Blood cultures x2 are negative. IMAGING: Chest x-ray demonstrates trace persistent right apical pneumothorax. Cephalization, and minimal pulmonary edema are present. ASSESSMENT: 1. Acute hypoxic respiratory failure, resolved. 2. Acute myocardial infarction, status post PCI with bare metal stent. 3. Ventricular tachycardia/fibrillation arrest, status post multiple rounds of compressions with intact neurologic function. 4. Chronic obstructive pulmonary disease with acute exacerbation. 5. Pulmonary nodule, status post biopsy. 6. Iatrogenic pneumothorax on the right, status post chest tube placement. 7. Hematuria, gross. DISCUSSION AND PLAN: I will put the patient on a spontaneous breathing trial. If he meets criteria, extubation will be considered. Hansen catheter will also be removed. If he has a challenging time voiding, Urology consultation will be placed as he will likely have clots that result in requirements for three-way Hansen. We will mobilize the patient throughout the day. I would like for him to be watched closely in the ICU for the next 24 hours. I will repeat hemoglobin this afternoon. Critical care time: 30 minutes. Job ID: [id number] [facility]
[2019-05-06 12:33] LABS: Band 28 % (5-11); Hemoglobin 13.5 g/dL (14.0-18.0); Lymphocytes 1 % (21-51); MDiff Complete? YES; Mean Corpuscular Hemoglobin 31.4 pg (27.0-31.0); Mean Corpuscular Volume 92.5 fL (78.0-98.0); Mean Platelet Volume 9.6 fL (7.4-10.4); Monocytes 7 % (0-10); Neutrophil 62 % (42-75); Platelet Count 199 thou/uL (130-400); Platelet Morphology Comment Appears Adequate; Polychromasia SLIGHT = 2-3 cells (100X) (0-2/hpf); RBC Distribution Width 12.4 % (11.5-14.5); Reactive Lymphocytes 2 % (0-10); White Blood Cell (WBC) Count 18.4 thou/uL (4.8-10.8)
[2019-05-06] MEDS: HYDROcodone/Acetaminophen 10/325 mg Tablet PO PRN ×2 (13:49→23:15)
[2019-05-06] MEDS: Carvedilol 3.125 MG TAB PO SCH (17:21)
--- NOTE | 2019-05-06 20:26 | PDOC.HOSPP ---
- Subjective Encounter Date: 05/06/19 Encounter Time: 20:30 Subjective: f/u s/p V-fib/tach cardiac arrest with CPR and ROSC. s/p mech ventilation maintaining sats in upper 90's on RA. Feels sore on chest after having compressions. - Objective Vital Signs & Weight: Vital Signs (12 hours) Temp Pulse Resp BP Pulse Ox 05/06/19 19:02 68 18 96 05/06/19 18:51 98.9 F 05/06/19 16:00 98.6 F 05/06/19 13:11 62 19 95 05/06/19 12:00 97.9 F 96 05/06/19 11:04 61 143/66 H 05/06/19 10:00 20 Weight Admit Weight 206 lb 9.17 oz Weight 205 lb 12.8 oz Most Recent Monitor Data Heart Rate from ECG 69 NIBP 135/68 NIBP BP-Mean 90 Respiration from ECG 20 SpO2 94 I&O: 05/05/19 05/06/19 05/07/19 06:59 06:59 06:59 Intake Total 3149.6 1001.1 Output Total 3730 600 Balance -580.4 401.1 Result Diagrams: 05/06/19 15:01 05/06/19 03:45 Additional Labs: Accuchecks 05/06/19 05/06/19 05/06/19 17:56 12:04 08:41 POC Glucose 212 H 252 H 295 H 05/06/19 03:50 POC Glucose 314 H Microbiology 05/05/19 11:08 Venous blood - Left Foot Blood Culture - Preliminary Specimen has been received and culture in progress. No Growth to date. 05/05/19 11:08 Venous blood - Left Arm Blood Culture - Preliminary Specimen has been received and culture in progress. No Growth to date. Laboratory Tests 05/05/19 05/05/19 05/05/19 00:05 00:05 11:08 WBC 17.9 H Troponin I 444.993 H* 0.010 05/05/19 05/05/19 05/06/19 11:08 20:50 03:45 WBC 14.2 H 14.2 H Troponin I 443.616 H* 05/06/19 05/06/19 05/06/19 08:07 08:07 12:00 WBC 16.8 H 18.4 H Troponin I 274.792 H* Radiology Reviewed by me: Yes (Echo - EF 20-25%, Grade I/III diast dysfx) EKG Reviewed by me: Yes (Tele - SR) Hospitalist ROS - Medication Medications: Active Medications Generic Name Dose Route Start Last Admin Trade Name Freq PRN Reason Stop Dose Admin Hydrocodone Bitart/Acetaminophen 1 tab 05/06/19 11:42 05/06/19 13:49 [place] 10/325 PO 1 tab Q4H PRN Administration Pain 4-6 Albuterol/Ipratropium 3 ml 05/05/19 19:00 05/06/19 19:02 Duoneb NEB 3 ml [id number] HARMAN Administration Aspirin 81 mg 05/06/19 09:00 05/06/19 08:40 Aspirin Chewable PO 81 mg DAILY HARMAN Administration Carvedilol 1.5625 mg 05/06/19 17:00 05/06/19 17:21 Coreg PO 1.5625 mg BID-WM HARMAN Administration Citalopram Hydrobromide 40 mg 05/06/19 09:00 05/06/19 08:40 Celexa PO 40 mg DAILY HARMAN Administration Famotidine 20 mg 05/05/19 21:00 05/06/19 08:41 Pepcid SLOW IVP 20 mg Q12HR HARMAN Administration Norepinephrine Bitartrate 250 mls @ 0 mls/hr 05/05/19 17:27 05/05/19 18:01 Levophed IVPB 250 mls PRN PRN Administration To maintain MAP > 65 Protocol Titrate Amiodarone HCl 450 mg/ 259 mls @ 0 mls/hr 05/05/19 19:30 05/06/19 08:39 Miscellaneous Medication 1 IVPB 259 mls each/ Dextrose/Water INF HARMAN Administration Protocol As Directed Insulin Human Regular 0 units 05/05/19 19:35 05/06/19 18:11 Humulin R SC 4 unit .MODERATE SLIDING SC PRN Administration MODERATE SLIDING SCALE Protocol Ticagrelor 90 mg 05/06/19 09:00 05/06/19 08:40 Brilinta PO 90 mg BID HARMAN Administration - Exam General Appearance: NAD, awake alert Eye: PERRL, anicteric sclera ENT: normocephalic atraumatic, no oropharyngeal lesions Neck: supple, symmetric, no JVD, no thyromegaly Heart: RRR, no murmur, no gallops, no rubs, normal peripheral pulses Respiratory - other findings: diminished in bases Gastrointestinal: soft, non-tender, non-distended, normal bowel sounds, no palpable masses Extremities: no cyanosis, no clubbing, no edema Skin: normal turgor, no lesions Neurological: cranial nerve grossly intact, no new deficit Musculoskeletal: normal tone, normal strength Psychiatric: normal affect, A&O x 3 Hosp A/P (1) NSTEMI (non-ST elevated myocardial infarction) Code(s): I21.4 - NON-ST ELEVATION (NSTEMI) MYOCARDIAL INFARCTION Status: Acute Plan: s/p BMS to LAD/RCA, continue ASA/Brillinta/Statin, Amiodarone IV (2) Acute and chronic respiratory failure with hypoxia Code(s): J96.21 - ACUTE AND CHRONIC RESPIRATORY FAILURE WITH HYPOXIA Status: Acute Plan: Improved, continue O2 PRN, s/p mech ventilation (3) Acute congestive heart failure Code(s): I50.9 - HEART FAILURE, UNSPECIFIED Status: Acute Qualifiers: Heart failure type: systolic Qualified Code(s): I50.21 - Acute systolic ( congestive) heart failure Plan: EF 20-25%, suspect due to #1, continue serial Echo and monitoring, Lasix PRN (4) COPD with exacerbation Code(s): J44.1 - CHRONIC OBSTRUCTIVE PULMONARY DISEASE W (ACUTE) EXACERBATION Status: Acute Plan: Continue Duonebs, Prednisone, O2 PRN, Rocephin (5) Diabetes mellitus type 2, insulin dependent Code(s): E11.9 - TYPE 2 DIABETES MELLITUS WITHOUT COMPLICATIONS; Z79.4 - CUSTOMS EXAMINER (CURRENT) USE OF INSULIN Status: Chronic (6) Tobacco abuse Code(s): Z72.0 - TOBACCO USE Status: Chronic Plan: Tobacco cessation resources - Plan continue antibiotics, social worker palliative care, respiratory therapy, DVT proph w/SCDs Continue supportive mgmt Continue ASA Continue Coreg/Lisinopril Monitor for arrhythmia Tobacco cessation resources AM lab: CMP, CBC
[2019-05-06] MEDS: Doxycycline 100 MG CAP PO SCH (20:32)
[2019-05-06] MEDS: cefTRIAXone\\ROCEPHIN 2 GM in Sodium Chloride 0.9% 100 ML IVPB SCH (20:34)
[2019-05-06] MEDS: Calcium Carbonate 500 MG ChewTAB PO PRN (21:28)
[2019-05-07] MEDS: Calcium Carbonate 500 MG ChewTAB PO PRN ×2 (03:17→08:09)
[2019-05-07 05:22] LABS: ALT (SGPT) 136 U/L (8-55); AST (SGOT) 215 U/L (5-34); Albumin 3.4 g/dL (3.4-4.8); Alkaline Phosphatase 63 U/L (40-110); Anion Gap 15 mmol/L (10-20); BUN (Urea Nitrogen) 23 mg/dL (8.4-25.7); Bilirubin, Total 0.8 mg/dL (0.2-1.2); Calc. Creatinine Clearance 130 mL/min (70-130); Calcium 8.4 mg/dL (7.8-10.44); Carbon Dioxide 24 mmol/L (23-31); Chloride 103 mmol/L (98-107); Estimated GFR-MDRD Greater than 90; Globulin 2.5 g/dL (2.4-3.5); Glucose 220 mg/dL (80-115); Potassium 3.9 mmol/L (3.5-5.1); Protein, Total 5.9 g/dL (5.8-8.1); Sodium 138 mmol/L (136-145)
[2019-05-07 05:39] LABS: Hemoglobin 12.9 g/dL (14.0-18.0); Mean Corpuscular HGB CONC 33.9 g/dL (32.0-36.0); Mean Corpuscular Hemoglobin 31.2 pg (27.0-31.0); Mean Corpuscular Volume 91.9 fL (78.0-98.0); Platelet Count 174 thou/uL (130-400); RBC Distribution Width 12.2 % (11.5-14.5); Red Blood Cell (RBC) Count 4.14 mill/uL (4.70-6.10); White Blood Cell (WBC) Count 18.1 thou/uL (4.8-10.8)
[2019-05-07 05:55] LABS: Band 7 % (5-11); Lymphocytes 3 % (21-51); MDiff Complete? YES; Monocytes 1 % (0-10); Neutrophil 89 % (42-75); Platelet Morphology Comment Appears Adequate; RBC Morphology Normal
[2019-05-07] MEDS ORDERED: Lisinopril 2.5 MG TAB PO SCH (09:00)
[2019-05-07] MEDS ORDERED: Ondansetron PF 4 MG/2 ML Vial IM SCH (10:27)
--- NOTE | 2019-05-07 10:48 | RAD ---
XR Chest 1 View Portable History: Ventilated patient Comparison: Radiograph 2 days prior Findings: Right apical pneumothorax is slightly enlarged with apex between the posterior third and fo urth ribs. Right thoracostomy tube is in place. Subcutaneous emphysema is worsening. Patient has been extubated and the enteric tube has been removed . Impression: Enlarging right pneumothorax and worsening subcutaneous emphysema. The right thoracostomy tube may not be functioning properly.
[2019-05-07] MEDS ORDERED: Pantoprazole 40 MG VIAL IVP SCH ×3 (11:15→21:00)
[2019-05-07] MEDS: Insulin Regular 300 UNITS/3 ML VIAL SC PRN ×2 (11:44→16:13)
[2019-05-07] MEDS: Famotidine/PF 20 mg/2ml Vial SLOW IVP SCH (11:50)
[2019-05-07] MEDS: predniSONE 20 MG TAB PO SCH (11:54)
[2019-05-07] MEDS: Pantoprazole 80 MG in Sodium Chloride 0.9% 100 ML IVP SCH ×2 (12:01→21:46)
[2019-05-07] MEDS: Citalopram 20 MG TAB PO SCH (13:13)
[2019-05-07] MEDS: Carvedilol 3.125 MG TAB PO SCH ×2 (13:13→17:24)
[2019-05-07] MEDS: Aspirin Chewable 81 MG TAB PO SCH (13:15)
--- NOTE | 2019-05-07 13:30 | PRG ---
DATE OF SERVICE: 05/07/2019 SERVICE: Pulmonary Medicine. INTERVAL HISTORY: The patient is doing really well from respiratory standpoint. Breathing comfortably. That being said, overnight, he continued to have hematuria. We tried to remove the Hansen catheter to see if that would resolve the problem, but it did not. He had increasing difficulty with voiding. Bladder scan showed 900 mL of fluid and the Hansen catheter was replaced. Urology consultation has been placed this morning. Yesterday evening, he tried eating grapes. This caused him to have fairly violent vomiting. Initially, there was no blood, but this morning he had onset of nausea and vomiting again and there was some old blood present. PPI was initiated, GI consultation was placed. Otherwise, the patient indicates he is breathing okay. He denies any current chest discomfort, fevers, or chills. PHYSICAL EXAMINATION: VITAL SIGNS: Afebrile. Pulse 77, blood pressure 145/76, respirations 12, saturation 94%, currently on 2 L nasal cannula. GENERAL: The patient is awake and alert, in no apparent distress. LUNGS: There is decreased air entry with crackles present. No prolonged expiratory phase or wheezing is appreciated. HEART: Normal rate. Regular. ABDOMEN: Soft, nontender, and nondistended. Bowel sounds are positive. MUSCULOSKELETAL: No cyanosis or clubbing. There is no pitting in bilateral lower extremities. NEUROLOGIC: Grossly nonfocal. LABORATORY DATA: WBC 18.1, hemoglobin 12.9 and roughly stable, platelets 174,000. Basic metabolic profile is unremarkable. AST and ALT are gently downtrending. Urinalysis is unremarkable. Blood cultures x2 are negative. IMAGIN. Chest x-ray demonstrates increasing subcutaneous air as well as a very small apical pneumothorax present. 2. Echocardiogram demonstrates 20% to 25% ejection fraction with 1/3 diastolic dysfunction. ASSESSMENT: 1. Acute hypoxic respiratory failure, resolved. 2. Acute myocardial infarction, status post PCI with bare metal stent. 3. Ventricular tachycardia/fibrillation arrest with return of neurologic function. 4. Chronic obstructive pulmonary disease with acute exacerbation. 5. Pulmonary nodule/cavitary lesion, status post biopsy. 6. Iatrogenic pneumothorax on the right, status post chest tube placement. 7. Acute on chronic systolic and diastolic heart failure (25% EF). 8. Gross hematuria. 9. Hematemesis. DISCUSSION AND PLAN: The patient is going to require anti-platelet therapy regardless of these bleeding events. GI consultation has been placed. The patient likely suffered a Ena-Juárez tear. He will be made strictly n.p.o. Urology consultation has been placed for the gross hematuria, which is not quitting. An attempt to getting the Hansen catheter out was unsuccessful so he may need a three way Hansen for continuous irrigation. The pneumothorax is a little bit bigger. As such, we will put his small chest tube to suction. After this is done, I will repeat a chest x-ray to see whether or not things are improving. If they are not, an open chest tube will be entertained. This patient remains critically ill with multiple different chronic and acute problems. There is a strong possibility he could pass away from these comorbidities currently. That being said, for the time being, his hemodynamics remained fairly stable, his hemoglobin counts look to be roughly stable as well. He will need to remain in the ICU for a time. Job ID: [id number]
[2019-05-07] MEDS ORDERED: TICAGRELOR 90 MG TABLET PO SCH (13:45)
[2019-05-07] MEDS ORDERED: Doxycycline 100 MG CAP PO SCH (13:45)
[2019-05-07] MEDS: Doxycycline 100 MG CAP PO SCH ×2 (14:29→20:36)
[2019-05-07] MEDS: Amiodarone 200 MG TAB PO SCH ×2 (14:30→20:36)
[2019-05-07] MEDS: HYDROcodone/Acetaminophen 10/325 mg Tablet PO PRN ×2 (14:34→21:16)
--- NOTE | 2019-05-07 16:23 | CON ---
DATE OF CONSULTATION: 05/07/2019 REASON FOR CONSULTATION/PROCEDURE: Gross hematuria. HISTORY OF PRESENT ILLNESS: Mr. Em is a 64-year-old gentleman with a long smoking history who had a percutaneous biopsy of the lung mass on 05/05/2019. This is complicated by a pneumothorax. He had a chest tube placed. He then became hemodynamically unstable and eventually ended up in the cardiac lab, where he had a coronary stent placed. He is now in the ICU. He denies any prior urologic history. He has never had any prostate surgery or bladder surgery. He has never seen hematuria before. When he was admitted to the hospital, his urinalysis demonstrated no hematuria. After admission, a Hansen catheter was placed and he was also given anticoagulation. Since then, there has been blood in the urine. They removed his catheter hoping that he could void yesterday, but he was unable to void and the catheter was replaced. The catheter is not draining. PAST MEDICAL HISTORY: COPD, respiratory failure, dyslipidemia, hypertension, type 2 diabetes, peripheral vascular disease, coronary artery disease, chronic back pain. PAST SURGICAL HISTORY: Abdominal aortic aneurysm repair, bilateral lower extremity vascular stents, coronary stent placement, and thoracostomy with right chest tube placement. ALLERGIES: NO KNOWN DRUG ALLERGIES. MEDICATIONS: Please see chart. SOCIAL HISTORY: He is a long-term smoker and continues to smoke. Denies excessive alcohol use. FAMILY HISTORY: Significant for mesothelioma. REVIEW OF SYSTEMS: GENERAL:The patient is feeling much better. CHEST: He has some chest discomfort, probably from chest compressions required during this hospital admission. CARDIAC - see HPI RESPIRATOTY - long standing COPD :He denies any urologic symptoms other than the feeling that he needs to void. MUSCULOSKELETAL: no joint pain denies edema. Neurologic, denies prior stroke. Gastrointestinal, denies chronic constipation or diarrhea. PHYSICAL EXAMINATION: GENERAL: He is awake and alert. He is in no distress at this time. HEENT: Normocephalic and atraumatic. NECK: Supple. No masses. CHEST: No murmurs auscultated. ABDOMEN: Soft and nontender. No peritoneal signs. : Penis is circumcised. No penile lesions. Scrotum normal. Testicles palpably normal bilaterally. EXTREMITIES: No edema. The indwelling 16-British Hansen catheter was hand irrigated. Large amount of clot was removed. This catheter was eventually removed and a 20-British catheter was placed. This catheter was also hand irrigated until it seems certain there were no additional clots left. Once all the clots were out of his bladder, there was very minimal hematuria. Decision at this time was made to forego continuous bladder irrigation. IMPRESSION: Gross hematuria after catheter placement and in the setting of anticoagulation. Urinalysis prior to catheterization and anticoagulation demonstrated no red blood cells. Hansen catheter is now in place and I believe there is little to no active bleeding and for that reason, continuous bladder irrigation was not initiated. RECOMMENDATIONS: 1. Hand irrigate Hansen catheter as necessary. 2. May remove Hansen catheter when the patient is ambulatory. Job ID: [id number] [facility]
--- NOTE | 2019-05-07 16:46 | RAD ---
EXAM: XR Chest 1 View Portable PROVIDED CLINICAL HISTORY: Pneumothorax COMPARISON: 05/07/2019 10:07 AM FINDINGS: Cardiac and mediastinal silhouette is unchanged in appearance. Interval decrease in size of right pne umothorax, with trace pneumothorax persisting. Cavitary mass at the right lung apex is redemonstrated. Extensive subcutaneous emphysema is redemonstrated. Lungs appear otherwise clear. No pleural fluid evident. No evidence for left pneumothorax. IMPRESSION: Interval decrease in size of right pneumothorax.
[2019-05-07] MEDS: TICAGRELOR 90 MG TABLET PO SCH ×2 (17:37→20:36)
--- NOTE | 2019-05-07 18:15 | PDOC.HOSPP ---
- Subjective Encounter Date: 05/07/19 Encounter Time: 17:30 Subjective: f/u for V-fib arrest/NSTEMI with PCI and BMS stent x 2 to LAD/RCA. Remains on ASA/Amiodarone/Coreg/Brillinta. - Objective Vital Signs & Weight: Vital Signs (12 hours) Temp Pulse Resp Pulse Ox 05/07/19 17:36 79 05/07/19 16:00 98.1 F 05/07/19 14:37 79 19 99 05/07/19 12:00 98.7 F 05/07/19 08:00 98.0 F 93 L 05/07/19 07:19 99 05/07/19 07:17 87 22 H 95 Weight Admit Weight 206 lb 9.17 oz Weight 207 lb 3.2 oz Most Recent Monitor Data Heart Rate from ECG 75 NIBP 150/77 NIBP BP-Mean 101 Respiration from ECG 12 SpO2 94 I&O: 05/06/19 05/07/19 05/08/19 06:59 06:59 06:59 Intake Total 3149.6 1248.1 140 Output Total 3730 1950 1670 Balance -580.4 -701.9 -1530 Result Diagrams: 05/07/19 04:30 05/07/19 04:30 Additional Labs: Accuchecks 05/07/19 05/07/19 05/07/19 16:15 11:20 04:34 POC Glucose 216 H 278 H 217 H 05/06/19 21:33 POC Glucose 186 H Radiology Reviewed by me: Yes (PCXR - decreased size in R pneumothorax) EKG Reviewed by me: Yes (Tele - SR) Hospitalist ROS - Medication Medications: Active Medications Generic Name Dose Route Start Last Admin Trade Name Freq PRN Reason Stop Dose Admin Hydrocodone Bitart/Acetaminophen 1 tab 05/06/19 11:42 05/07/19 14:34 [place] 10/325 PO 1 tab Q4H PRN Administration Pain 4-6 Albuterol/Ipratropium 3 ml 05/05/19 19:00 05/07/19 14:37 Duoneb NEB 3 ml [id number] HARMAN Administration Amiodarone HCl 200 mg 05/07/19 15:00 05/07/19 14:30 Cordarone PO 200 mg TID HARMAN Administration Aspirin 81 mg 05/06/19 09:00 05/07/19 13:15 Aspirin Chewable PO 81 mg DAILY HARMAN Administration Calcium Carbonate 1,000 mg 05/06/19 20:35 05/07/19 08:09 Tums PO 1,000 mg PRN PRN Administration HEARTBURN/INDIGESTION Carvedilol 1.5625 mg 05/06/19 17:00 05/07/19 17:24 Coreg PO 1.5625 mg BID-WM HARMAN Administration Citalopram Hydrobromide 40 mg 05/06/19 09:00 05/07/19 13:13 Celexa PO 40 mg DAILY HARMAN Administration Famotidine 20 mg 05/05/19 21:00 05/07/19 11:50 Pepcid SLOW IVP 20 mg Q12HR HARMAN Administration Norepinephrine Bitartrate 250 mls @ 0 mls/hr 05/05/19 17:27 05/05/19 18:01 Levophed IVPB 250 mls PRN PRN Administration To maintain MAP > 65 Protocol Titrate Ceftriaxone Sodium 2 gm/ 100 mls @ 200 mls/hr 05/06/19 20:00 05/06/19 20:34 Sodium Chloride IVPB 100 mls Q24HR HARMAN Administration Pantoprazole Sodium 80 mg/ 100 mls @ 10 mls/hr 05/07/19 11:15 05/07/19 12:01 Sodium Chloride IVP 100 mls INF HARMAN Administration Insulin Human Regular 0 units 05/05/19 19:35 05/07/19 16:13 Humulin R SC 4 unit .MODERATE SLIDING SC PRN Administration MODERATE SLIDING SCALE Protocol Prednisone 40 mg 05/07/19 08:00 05/07/19 11:54 Prednisone PO 05/09/19 08:01 40 mg QAM-WM HARMAN Administration - Exam General Appearance: NAD, awake alert Eye: PERRL, anicteric sclera ENT: normocephalic atraumatic, no oropharyngeal lesions Neck: supple, symmetric, no JVD, no thyromegaly Heart: RRR, no murmur, no gallops, no rubs, normal peripheral pulses Respiratory: CTAB, no rales Respiratory - other findings: diminished in R base, CT in place Gastrointestinal: soft, non-tender, non-distended, normal bowel sounds, no palpable masses Extremities: no cyanosis, no clubbing, no edema Skin: normal turgor, no lesions Neurological: cranial nerve grossly intact, no new deficit Musculoskeletal: normal tone, normal strength, no muscle wasting Psychiatric: normal affect, A&O x 3 Hosp A/P (1) NSTEMI (non-ST elevated myocardial infarction) Code(s): I21.4 - NON-ST ELEVATION (NSTEMI) MYOCARDIAL INFARCTION Status: Acute Plan: Continue medical mgmt, s/p BMS stent to LAD/RCA, ASA/Brillinta/Coreg/Lisinopril (2) Acute and chronic respiratory failure with hypoxia Code(s): J96.21 - ACUTE AND CHRONIC RESPIRATORY FAILURE WITH HYPOXIA Status: Acute Plan: Improved, O2 PRN (3) Acute congestive heart failure Code(s): I50.9 - HEART FAILURE, UNSPECIFIED Status: Acute Qualifiers: Heart failure type: systolic Qualified Code(s): I50.21 - Acute systolic ( congestive) heart failure Plan: EF 20-25%, med mgmt, see above (4) COPD with exacerbation Code(s): J44.1 - CHRONIC OBSTRUCTIVE PULMONARY DISEASE W (ACUTE) EXACERBATION Status: Acute (5) Diabetes mellitus type 2, insulin dependent Code(s): E11.9 - TYPE 2 DIABETES MELLITUS WITHOUT COMPLICATIONS; Z79.4 - SENIOR DATABASE ENGINEER (CURRENT) USE OF INSULIN Status: Chronic (6) Tobacco abuse Code(s): Z72.0 - TOBACCO USE Status: Chronic - Plan continue antibiotics, PT/OT, social media manager, respiratory therapy, out of bed/ ambulate, DVT proph w/SCDs Continue supportive mgmt Continue ASA/Brillinta/Amiodarone Continue Coreg/Lisinopril Monitor for arrhythmia Tobacco cessation resources AM lab: CMP, H/H
[2019-05-07] MEDS: cefTRIAXone\\ROCEPHIN 2 GM in Sodium Chloride 0.9% 100 ML IVPB SCH (20:35)
[2019-05-07] MEDS: Lisinopril 5 MG TAB PO SCH (20:36)
--- NOTE | 2019-05-07 22:59 | CON ---
DATE OF CONSULTATION: 05/07/2019 CHIEF COMPLAINT: Vomited blood. HISTORY OF PRESENT ILLNESS: Mr. Em is a 64-year-old man, who underwent lung biopsy 2 days ago on 05/05/2019. He had a pneumothorax associated with that and had a chest tube placed. Later in the day, he developed an acute myocardial infarction. He underwent cardiac cath emergently and had bare metal stent placed to the LAD. He was noted to have severely impaired ventricular function. He also was found to have a 100% RCA lesion that fill distally by collaterals. He initially did well following the procedure. He had an echocardiogram repeated yesterday that showed an EF of 20% to 25%. He ate grapes and fish yesterday and while an hour or 2 later, he vomited old food that was nonbloody. This morning, he vomited once and this time it looked like dark coffee-ground material. He has had no further bleeding overtly since then from the GI tract. He has been having hematuria and had a larger bore Hansen catheter placed and bladder irrigation performed and still has some hematuria. He does report some burning epigastric abdominal discomfort over the last 3 days, which he attributed to reflux. This has been intermittent and lasts for minutes at a time. PAST MEDICAL HISTORY: Congestive heart failure, COPD, pulmonary nodule, which was biopsied a couple of days ago, abdominal aortic aneurysm, hypertension, diabetes mellitus type 2, coronary artery disease. PAST SURGICAL HISTORY: Abdominal aortic aneurysm repair, lower extremity stents within the last few days. He has had a lung mass biopsy and a chest tube placement and coronary stent placement. FAMILY HISTORY: Negative for GI malignancies. SOCIAL HISTORY: He smokes daily and has been smoking for decades. No alcohol or drugs. ALLERGIES: NO KNOWN DRUG ALLERGIES. MEDICATIONS: Currently include; 1. Aspirin. 2. Amiodarone. 3. Carvedilol. 4. Ceftriaxone. 5. Citalopram. 6. Doxycycline. 7. Famotidine. 8. Lisinopril. 9. Pantoprazole. 10. Prednisone 40 mg daily. 11. Brilinta. REVIEW OF SYSTEMS: Negative x10 systems reviewed, except as stated in history of present illness. PHYSICAL EXAMINATION: VITAL SIGNS: Pulse 75, blood pressure 110/54, temperature is 98.9. GENERAL: He is in no acute distress. Alert and oriented x3. HEENT: Eyes have no scleral icterus. Oropharynx is clear without lesions with poor dentition. No cervical or supraclavicular lymphadenopathy. LUNGS: Clear to auscultation bilaterally. HEART: Regular rate and rhythm without murmur. He has a chest tube in place. ABDOMEN: Soft, nontender, and nondistended. Bowel sounds are present. He just had a catheter sheath removed from the right femoral artery and that is dressed now. EXTREMITIES: Have trace lower extremity edema. RECTAL: Reveals brown nonbloody stool in the rectal vault. LABORATORY DATA: White blood cell count 18.1, hemoglobin 12.9, platelets 174, creatinine 0.77, bilirubin 0.8, AST 215, ALT 136, alkaline phosphatase 63, albumin 3.4. IMPRESSION: 1. Hematemesis. He reportedly had some coffee-grounds emesis this morning. He reports some burning upper epigastric discomfort over the last 3 days. He is on aspirin, prednisone and Brilinta and does have risk for peptic ulcer and upper gastrointestinal bleeding. For now, he has no evidence of ongoing bleeding as he only had one episode of coffee-grounds emesis and brown stool in the rectal vault. He does have ongoing hematuria. He will have to remain on the Brilinta given that he just had a coronary stent placed 2 days ago. This was a bare metal stent. 2. Coronary artery disease, status post stent placement. 3. Chronic obstructive pulmonary disease and recent lung biopsy. RECOMMENDATIONS: 1. Continue proton pump inhibitor IV drip over the next couple of days and then switch over to b.i.d. dosing. 2. Continue to monitor for further overt GI bleeding. However, he does not appear to have ongoing bleeding at this point. 3. We can hold the famotidine for now. 4. I will sign off for now. Please call if GI can be of assistance. Job ID: [id number]
[2019-05-08 04:26] LABS: Hemoglobin 11.7 g/dL (14.0-18.0)
[2019-05-08 04:37] LABS: ALT (SGPT) 91 U/L (8-55); AST (SGOT) 69 U/L (5-34); Albumin 3.2 g/dL (3.4-4.8); Alkaline Phosphatase 62 U/L (40-110); Anion Gap 12 mmol/L (10-20); BUN (Urea Nitrogen) 23 mg/dL (8.4-25.7); Bilirubin, Total 0.8 mg/dL (0.2-1.2); Calc. Creatinine Clearance 127 mL/min (70-130); Calcium 8.3 mg/dL (7.8-10.44); Carbon Dioxide 26 mmol/L (23-31); Chloride 102 mmol/L (98-107); Estimated GFR-MDRD Greater than 90; Globulin 2.5 g/dL (2.4-3.5); Glucose 212 mg/dL (80-115); Potassium 4.2 mmol/L (3.5-5.1); Protein, Total 5.7 g/dL (5.8-8.1); Sodium 136 mmol/L (136-145)
--- NOTE | 2019-05-08 07:55 | RAD ---
CHEST 1 VIEW: INDICATION: History of chest tube placement. COMPARISON: Prior exam dated 05/07/2019. FINDINGS: Chest tube is unchanged appearing. Tiny right apical pneumothorax persists. Cavitary lesion in the right upper lobe is stable appearing. Chest wall emphysema and neck base emphysema is similar appear ing. Mild cardiomegaly persists. Osseous structures unchanged. IMPRESSION: Stable exam. POS: BH
[2019-05-08] MEDS: Lisinopril 5 MG TAB PO SCH ×2 (09:25→20:14)
[2019-05-08] MEDS: Doxycycline 100 MG CAP PO SCH ×2 (09:25→20:14)
[2019-05-08] MEDS: Amiodarone 200 MG TAB PO SCH ×3 (09:26→20:14)
[2019-05-08] MEDS: TICAGRELOR 90 MG TABLET PO SCH ×2 (09:27→20:14)
[2019-05-08] MEDS: Citalopram 20 MG TAB PO SCH (09:27)
[2019-05-08] MEDS: Aspirin Chewable 81 MG TAB PO SCH (09:27)
[2019-05-08] MEDS: predniSONE 20 MG TAB PO SCH (09:28)
[2019-05-08] MEDS: Carvedilol 3.125 MG TAB PO SCH ×3 (09:31→17:02)
--- NOTE | 2019-05-08 09:34 | PRG ---
DATE OF SERVICE: 05/08/2019 SUBJECTIVE: Mr. Em is sitting up at the bedside. He is not short of breath. No chest pain. OBJECTIVE: VITAL SIGNS: Blood pressure 170/90, pulse 80. LUNGS: Clear. CARDIAC: Normal S1, normal S2. ABDOMEN: Soft, nontender. EXTREMITIES: Warm, dry. No clubbing or cyanosis. No edema. ASSESSMENT: 1. Hypertension. 2. Status post extensive myocardial infarction. 3. Lung mass, possible malignancy. 4. Peripheral vascular disease. 5. History of smoking. 6. Status post pneumothorax. PLAN: 1. Increase beta-doris. 2. ELROY inhibitor. 3. Aspirin and Brilinta. 4. We will continue to follow with you. 5. LifeVest prior to discharge if his Medicaid will approve this. Job ID: [id number]
--- NOTE | 2019-05-08 16:58 | EKG ---
Test Reason : Blood Pressure : / mmHG Vent. Rate : 059 BPM Atrial Rate : 059 BPM P-R Int : 214 ms QRS Dur : 182 ms QT Int : 488 ms P-R-T Axes : 062 078 025 degrees QTc Int : 483 ms Sinus bradycardia with 1st degree A-V block with Premature atrial complexes Right bundle branch block Inferior infarct (cited on or before 05-MAY-2019) Anterior infarct , age undetermined Abnormal ECG When compared with ECG of 05-MAR-2019 18:58, Significant changes have occurred Confirmed by DR. Zak AMTAO (3) on 05/08/2019 4:57:57 PM Referred By: ARA Confirmed By:DR. Zak AMATO
--- NOTE | 2019-05-08 16:58 | EKG ---
Test Reason : CAD Blood Pressure : / mmHG Vent. Rate : 062 BPM Atrial Rate : 062 BPM P-R Int : 208 ms QRS Dur : 182 ms QT Int : 490 ms P-R-T Axes : 074 071 011 degrees QTc Int : 497 ms Normal sinus rhythm Right bundle branch block Inferior infarct (cited on or before 05-MAY-2019) Abnormal ECG When compared with ECG of 05-MAY-2019 20:36, (Unconfirmed) Premature atrial complexes are no longer Present Criteria for Anterior infarct are no longer Present Nonspecific T wave abnormality has replaced inverted T waves in Anterior leads Confirmed by DR. Zak AMATO (3) on 05/08/2019 4:58:28 PM Referred By: ARA Confirmed By:DR. Zak AMATO
--- NOTE | 2019-05-08 17:06 | PRG ---
DATE OF SERVICE: 05/08/2019 SERVICE: Pulmonary Medicine. INTERVAL HISTORY: The patient is doing really well from respiratory standpoint. Denies any current chest discomfort, nausea, vomiting, fevers, or chills. He is a little bit gun-shy when it is coming to eating food. His appetite started to come around a little bit, but the last time he ate anything, he had vomiting that precipitated a likely Ena-Juárez tear. He had not had any additional vomiting or blood. He had not had a bowel movement yet. PHYSICAL EXAMINATION: VITAL SIGNS: Afebrile, pulse 71, blood pressure 121/55, respirations 20, and saturation 100%, currently on room air. GENERAL: The patient is awake and alert, in no apparent distress. LUNGS: Decent air entry. No prolonged expiratory phase or wheezing appreciated. HEART: Normal rate and regular. ABDOMEN: Soft, nontender, and nondistended. Bowel sounds positive. MUSCULOSKELETAL: No cyanosis or clubbing. There is no pitting in the bilateral lower extremities. NEUROLOGIC: Grossly nonfocal. LABORATORY DATA: Hemoglobin 11.7 and gently trickling downward. Basic metabolic profile is unremarkable. AST and ALT, both continued to trend downward/improved. Liver function studies are otherwise unremarkable. Blood sugars run in the low 200s. Blood cultures x2 are negative. IMAGING STUDIES: Chest x-ray demonstrates improved apical pneumothorax, which is quite small. Right upper lobe cavitary lesion is stable. ASSESSMENT: 1. Acute hypoxic respiratory failure, resolved. 2. Chronic obstructive pulmonary disease with acute exacerbation, resolved. 3. Acute myocardial infarction, status post PCI with bare metal stent. 4. Ventricular tachycardia/fibrillation arrest with return of neurologic function. 5. Pulmonary nodule/cavity status post transcutaneous biopsy. 6. Iatrogenic pneumothorax on the right, status post thoracostomy tube placement with persistent air leak. 7. Acute on chronic systolic and diastolic heart failure (25% EF). 8. Gross hematuria. 9. Hematemesis, resolved, likely secondary to Ena-Juárez tear. DISCUSSION AND PLAN: The patient continues to have significant bleeding. We will trend his hemoglobins on a daily basis and try to maintain his hemoglobin above 9 or 10 given his recent events. We are not able to stop anti-platelet therapy for the next month. Because of the multiple moving parts here, I would like for the patient remain in the ICU or transition to further in the IMCU for the time being. We are awaiting for those small air leak to resolve. Once this occurs, we can remove chest tube. He is not complaining any shortness of breath at this point. We will deescalate his nebulized therapy to 3 times daily and p.r.n. Job ID: [id number]
[2019-05-08] MEDS: Insulin Regular 300 UNITS/3 ML VIAL SC PRN (17:26)
[2019-05-08] MEDS: cefTRIAXone\\ROCEPHIN 2 GM in Sodium Chloride 0.9% 100 ML IVPB SCH (20:15)
[2019-05-08] MEDS: Nicotine 14 MG PATCH TD SCH (21:26)
[2019-05-09] MEDS: HYDROcodone/Acetaminophen 10/325 mg Tablet PO PRN ×5 (05:04→23:44)
[2019-05-09 06:15] LABS: #Lymphocytes 1.2 thou/uL (1.20-3.40); #Neutrophils 12.7 thou/uL (1.40-6.50); %Basophils 0.1 % (0.0-1.0); %Eosinophils 0.3 % (0.0-10.0); %Lymphocytes 7.2 % (21.0-51.0); %Monocytes 12.6 % (0.0-10.0); %Neutrophils 79.8 % (42.0-75.0); Hemoglobin 12.9 g/dL (14.0-18.0); Mean Corpuscular HGB CONC 31.1 g/dL (32.0-36.0); Mean Corpuscular Hemoglobin 29.4 pg (27.0-31.0); Mean Corpuscular Volume 94.5 fL (78.0-98.0); Mean Platelet Volume 9.7 fL (7.4-10.4); Platelet Count 190 thou/uL (130-400); RBC Distribution Width 12.4 % (11.5-14.5); Red Blood Cell (RBC) Count 4.38 mill/uL (4.70-6.10); White Blood Cell (WBC) Count 15.9 thou/uL (4.8-10.8)
[2019-05-09 06:34] LABS: ALT (SGPT) 56 U/L (8-55); AST (SGOT) 44 U/L (5-34); Albumin 2.7 g/dL (3.4-4.8); Alkaline Phosphatase 125 U/L (40-110); Anion Gap 16 mmol/L (10-20); BUN (Urea Nitrogen) 15 mg/dL (8.4-25.7); Bilirubin, Total 0.9 mg/dL (0.2-1.2); Calc. Creatinine Clearance 147 mL/min (70-130); Carbon Dioxide 15 mmol/L (23-31); Chloride 102 mmol/L (98-107); Estimated GFR-MDRD Greater than 90; Globulin 3.1 g/dL (2.4-3.5); Glucose 168 mg/dL (80-115); Potassium 4.5 mmol/L (3.5-5.1); Protein, Total 5.8 g/dL (5.8-8.1); Sodium 128 mmol/L (136-145)
[2019-05-09] MEDS: Doxycycline 100 MG CAP PO SCH ×2 (07:50→20:32)
[2019-05-09] MEDS: Aspirin Chewable 81 MG TAB PO SCH (07:51)
[2019-05-09] MEDS: Citalopram 20 MG TAB PO SCH (07:51)
[2019-05-09] MEDS: Carvedilol 3.125 MG TAB PO SCH ×2 (07:51→16:01)
[2019-05-09] MEDS: Lisinopril 5 MG TAB PO SCH ×2 (07:51→20:32)
[2019-05-09] MEDS: TICAGRELOR 90 MG TABLET PO SCH ×2 (07:51→20:35)
[2019-05-09] MEDS: Amiodarone 200 MG TAB PO SCH ×3 (07:51→20:32)
--- NOTE | 2019-05-09 08:07 | RAD ---
CHEST 1 VIEW: Date: 05/09/2019 INDICATION: History of chest tube placement. COMPARISON: Prior exam dated 05/08/2019. FINDINGS: Since the comparison examination, the right-sided chest tube has been slightly withdrawn. There is in creasing size of the right-sided pneumothorax, now small to moderate in size. Chest wall emphysema is similar appearing. Cardiomegaly persists. Osseous structures are unchanged. Cavitary lesion of the r ight upper lobe is similar appearing. IMPRESSION: 1. Some interval withdrawal of the right-sided chest tube with development of small to moderate pneu mothorax. 2. Persistent cardiomegaly. 3. Persistent subcutaneous emphysema. Findings called to Froy, the RN caring for this patient, at 0752 hours on 05/09/2019. CODE CR. POS: OFF
[2019-05-09] MEDS: Insulin Regular 300 UNITS/3 ML VIAL SC PRN ×2 (11:14→16:15)
--- NOTE | 2019-05-09 12:08 | PRG ---
DATE OF SERVICE: 05/09/2019 SUBJECTIVE: Mr. Em is sitting up in chair. He is awake and alert. No complaints. OBJECTIVE: VITAL SIGNS: Blood pressure is 110 systolic, pulse 70. LUNGS: Clear. CARDIAC: Normal S1, normal S2. ABDOMEN: Soft, nontender. EXTREMITIES: No edema. LABORATORY DATA: Serum sodium 128. ASSESSMENT: 1. Status post extensive anterior myocardial infarction with 3-vessel coronary artery disease. 2. Lung mass. 3. GI bleeding, resolved. PLAN: 1. Change to oral pantoprazole. 2. He is on aspirin and Brilinta. 3. On lisinopril and carvedilol, try to increase dose of carvedilol tomorrow. Job ID: [id number]
--- NOTE | 2019-05-09 18:43 | PRG ---
DATE OF SERVICE: 05/09/2019 SERVICE: Pulmonary Medicine. INTERVAL HISTORY: The patient is doing fine from respiratory standpoint. Breathing comfortably. That being said, on chest x-ray this morning, he had a slight increase in pneumothorax. His hematuria has improved a little bit. He is having a little bit of nausea with eating, but he is not having any vomiting. He certainly has not had any hematemesis. Otherwise, there has been no interval change to his condition. Nursing reports no overnight events. PHYSICAL EXAMINATION: VITAL SIGNS: Afebrile, pulse 89, blood pressure 131/64, respirations 14, saturation 98% on room air. GENERAL: The patient is awake and alert, in no apparent distress. LUNGS: Reduced air entry. He had a prolonged expiratory phase, but I do not hear any wheezing or rhonchi. Crackles are present. HEART: Normal rate, regular. ABDOMEN: Soft, nontender, and nondistended. Bowel sounds are positive. MUSCULOSKELETAL: No cyanosis or clubbing. There is no pitting in the bilateral lower extremities. NEUROLOGIC: Grossly nonfocal. LABORATORY DATA: WBC 15.9 and downtrending, hemoglobin 12.9 and stable, platelets 190,000 and uptrending. Basic metabolic profile is unremarkable except for a sodium of 128. AST and ALT are downtrending. Alkaline phosphatase is gently uptrending. Urinalysis is unremarkable. Blood cultures x2 remain negative. IMAGING STUDIES: Chest x-ray demonstrates interval increase in size in the apical pneumothorax. It still remains quite small. ASSESSMENT: 1. Acute hypoxic respiratory failure, resolved. 2. Chronic obstructive pulmonary disease with acute exacerbation, at baseline. 3. Acute myocardial infarction, status post percutaneous coronary intervention with bare-metal stent. 4. Pulmonary cavity, status post transcutaneous biopsy, pathology is currently pending. 5. Iatrogenic pneumothorax on the right, status post thoracostomy tube placement with improving air leak. 6. [id number] systolic and diastolic heart failure (25% ejection fraction). 7. Gross hematuria, improving. 8. Hematemesis, resolved, suspected Ena-Juárez tear. DISCUSSION AND PLAN: The patient is doing fine from respiratory standpoint. He can be moved to the [facility], but I think that he has too much going on for him right now to move him out of the unit. We put a chest tube at bedside just in case this thing continues to evolve. I will get daily chest x-ray and laboratories. Once the air leak decreases/is resolved, the chest tube will be discontinued. We are awaiting the pathology results. If we do not have by tomorrow, pathology would be paid a visit. Job ID: [id number]
--- NOTE | 2019-05-09 19:40 | PDOC.HOSPP ---
- Subjective Encounter Date: 05/09/19 Encounter Time: 19:10 Subjective: f/u for NSTEMI with PCI and BMS placement on current ASA/Coreg/Lisinopril/ Brillinta. Remains with R chest tube due to pneumothorax after recent lung bx. States he is not sleeping much. - Objective Vital Signs & Weight: Vital Signs (12 hours) Temp Pulse Pulse Pulse Resp BP BP 05/09/19 18:27 61 14 05/09/19 18:00 98.5 F 05/09/19 14:02 61 14 05/09/19 10:08 68 68 112/70 05/09/19 07:57 05/09/19 07:55 69 18 05/09/19 07:51 70 149/80 H BP Pulse Ox Pulse Ox Pulse Ox 05/09/19 18:27 99 05/09/19 18:00 05/09/19 14:02 99 05/09/19 10:08 144/83 H 98 98 05/09/19 07:57 99 05/09/19 07:55 99 05/09/19 07:51 Weight Admit Weight 206 lb 9.17 oz Weight 197 lb 4.8 oz Most Recent Monitor Data Heart Rate from ECG 59 NIBP 97/63 NIBP BP-Mean 74 Respiration from ECG 14 SpO2 98 I&O: 05/08/19 05/09/19 05/10/19 06:59 06:59 06:59 Intake Total 606 448 961.3 Output Total 9212 2420 1545 [facility] -1809 -1972 -583.7 Result Diagrams: 05/09/19 05:56 05/09/19 05:56 Additional Labs: Accuchecks 05/09/19 05/09/19 05/08/19 16:00 11:09 21:35 POC Glucose 211 H 204 H 224 H Radiology Reviewed by me: Yes (PCXR - worsening R PTX, cardiomegaly, subq emphysema) EKG Reviewed by me: Yes (Tele - SR) Hospitalist ROS - Medication Medications: Active Medications Generic Name Dose Route Start Last Admin Trade Name Freq PRN Reason Stop Dose Admin Hydrocodone Bitart/Acetaminophen 1 tab 05/06/19 11:42 05/09/19 17:28 [place] 10/325 PO 1 tab Q4H PRN Administration Pain 4-6 Albuterol/Ipratropium 3 ml 05/08/19 18:30 05/09/19 18:27 Duoneb NEB 3 ml TID-RT HARMAN Administration Amiodarone HCl 200 mg 05/07/19 15:00 05/09/19 14:00 Cordarone PO 200 mg TID HARMAN Administration Aspirin 81 mg 05/06/19 09:00 05/09/19 07:51 Aspirin Chewable PO 81 mg DAILY HARMAN Administration Calcium Carbonate 1,000 mg 05/06/19 20:35 05/07/19 08:09 Tums PO 1,000 mg PRN PRN Administration HEARTBURN/INDIGESTION Carvedilol 3.125 mg 05/08/19 08:00 05/09/19 16:01 Coreg PO 3.125 mg BID-WM HARMAN Administration Citalopram Hydrobromide 40 mg 05/06/19 09:00 05/09/19 07:51 Celexa PO 40 mg DAILY HARMAN Administration Doxycycline Hyclate 100 mg 05/07/19 21:00 05/09/19 07:50 Vibramycin PO 100 mg BID HARMAN Administration Ceftriaxone Sodium 2 gm/ 100 mls @ 200 mls/hr 05/06/19 20:00 05/08/19 20:15 Sodium Chloride IVPB 100 mls Q24HR HARMAN Administration Insulin Human Regular 0 units 05/05/19 19:35 05/09/19 16:15 Humulin R SC 4 unit .MODERATE SLIDING SC PRN Administration MODERATE SLIDING SCALE Protocol Lisinopril 5 mg 05/07/19 21:00 05/09/19 07:51 Zestril PO 5 mg BID HARMAN Administration Nicotine 14 mg 05/08/19 21:00 05/08/19 21:26 Nicoderm Patch TD 14 mg Q24HR HARMAN Administration Ticagrelor 90 mg 05/07/19 21:00 05/09/19 07:51 Brilinta PO 90 mg BID HARMAN Administration - Exam General Appearance: NAD, awake alert Eye: PERRL, anicteric sclera ENT: normocephalic atraumatic, no oropharyngeal lesions Neck: supple, symmetric, no JVD, no thyromegaly Heart: RRR, no murmur, no gallops, no rubs, normal peripheral pulses Respiratory - other findings: diminished in R, CT in place, scattered rhonchi Gastrointestinal: soft, non-tender, non-distended, normal bowel sounds, no palpable masses Extremities: no cyanosis, no clubbing, no edema Skin: normal turgor Neurological: cranial nerve grossly intact, no new deficit Musculoskeletal: normal tone, normal strength, no muscle wasting Psychiatric: normal affect, A&O x 3 Hosp A/P (1) NSTEMI (non-ST elevated myocardial infarction) Code(s): I21.4 - NON-ST ELEVATION (NSTEMI) MYOCARDIAL INFARCTION Status: Acute Plan: S/p PCI with BMS, continue ASA/Lipitor/Brillinta/Lisinopril/Coreg (2) Acute and chronic respiratory failure with hypoxia Code(s): J96.21 - ACUTE AND CHRONIC RESPIRATORY FAILURE WITH HYPOXIA Status: Acute Plan: Pulmonary support, Duonebs, Prednisone, Doxycycline (3) Acute congestive heart failure Code(s): I50.9 - HEART FAILURE, UNSPECIFIED Status: Acute Qualifiers: Heart failure type: systolic Qualified Code(s): I50.21 - Acute systolic ( congestive) heart failure Plan: EF 20%, see #1 above, Life Vest prior to d/c (4) COPD with exacerbation Code(s): J44.1 - CHRONIC OBSTRUCTIVE PULMONARY DISEASE W (ACUTE) EXACERBATION Status: Acute (5) Diabetes mellitus type 2, insulin dependent Code(s): E11.9 - TYPE 2 DIABETES MELLITUS WITHOUT COMPLICATIONS; Z79.4 - DATA OPERATIONS DIRECTOR (CURRENT) USE OF INSULIN Status: Chronic (6) Tobacco abuse Code(s): Z72.0 - TOBACCO USE Status: Chronic - Plan continue antibiotics, PT/OT, psychologist social, respiratory therapy, out of bed/ ambulate, DVT proph w/SCDs Continue supportive mgmt Continue ASA/Brillinta/Amiodarone Continue Coreg/Lisinopril Monitor for arrhythmia Restoril 15mg HS PRN Tobacco cessation resources AM lab: CMP, CBC
[2019-05-09] MEDS: cefTRIAXone\\ROCEPHIN 2 GM in Sodium Chloride 0.9% 100 ML IVPB SCH (20:33)
[2019-05-09] MEDS: Nicotine 14 MG PATCH TD SCH (20:38)
[2019-05-09] MEDS: Temazepam 15 MG CAP PO PRN (20:38)
[2019-05-10 05:24] VITALS: BMI 28.8
[2019-05-10 07:41] LABS: ALT (SGPT) 41 U/L (8-55); AST (SGOT) 23 U/L (5-34); Albumin 2.8 g/dL (3.4-4.8); Alkaline Phosphatase 60 U/L (40-110); Anion Gap 13 mmol/L (10-20); BUN (Urea Nitrogen) 16 mg/dL (8.4-25.7); Bilirubin, Total 0.9 mg/dL (0.2-1.2); Calc. Creatinine Clearance 155 mL/min (70-130); Calcium 7.8 mg/dL (7.8-10.44); Carbon Dioxide 22 mmol/L (23-31); Chloride 100 mmol/L (98-107); Estimated GFR-MDRD Greater than 90; Globulin 2.4 g/dL (2.4-3.5); Glucose 165 mg/dL (80-115); Potassium 3.7 mmol/L (3.5-5.1); Protein, Total 5.2 g/dL (5.8-8.1); Sodium 131 mmol/L (136-145)
[2019-05-10 08:14] LABS: Band 9 % (5-11); Eosinophils 6 % (0-10); Hemoglobin 12.1 g/dL (14.0-18.0); Lymphocytes 13 % (21-51); MDiff Complete? YES; Mean Corpuscular HGB CONC 34.3 g/dL (32.0-36.0); Mean Corpuscular Hemoglobin 31.2 pg (27.0-31.0); Mean Corpuscular Volume 90.9 fL (78.0-98.0); Mean Platelet Volume 9.1 fL (7.4-10.4); Monocytes 8 % (0-10); Neutrophil 64 % (42-75); Platelet Count 189 thou/uL (130-400); Platelet Morphology Comment Appears Adequate; RBC Distribution Width 12.3 % (11.5-14.5); RBC Morphology Normal; Red Blood Cell (RBC) Count 3.88 mill/uL (4.70-6.10); White Blood Cell (WBC) Count 13.8 thou/uL (4.8-10.8)
[2019-05-10] MEDS: Lisinopril 5 MG TAB PO SCH ×2 (08:20→20:02)
[2019-05-10] MEDS: Doxycycline 100 MG CAP PO SCH ×2 (08:20→20:03)
[2019-05-10] MEDS: Citalopram 20 MG TAB PO SCH (08:20)
[2019-05-10] MEDS: Amiodarone 200 MG TAB PO SCH ×3 (08:20→20:03)
[2019-05-10] MEDS: HYDROcodone/Acetaminophen 10/325 mg Tablet PO PRN ×3 (08:21→20:04)
[2019-05-10] MEDS: Carvedilol 3.125 MG TAB PO SCH ×3 (08:21→17:23)
[2019-05-10] MEDS: Aspirin Chewable 81 MG TAB PO SCH (08:21)
[2019-05-10] MEDS: TICAGRELOR 90 MG TABLET PO SCH ×2 (08:22→20:04)
--- NOTE | 2019-05-10 08:56 | RAD ---
PORTABLE CHEST 1 VIEW: Date: 05/10/2019 Time: 0358 hours HISTORY: Chest tube placement. Comparison with previous day. FINDINGS/IMPRESSION: There is interval repositioning of the right pleural catheter. The right-sided pneumothorax seen on t he previous exam is not definitely noted on the current study. Chest wall emphysema is again seen. Th e heart size is normal. POS: [facility]
--- NOTE | 2019-05-10 09:10 | PRG ---
DATE OF SERVICE: 05/10/2019 SUBJECTIVE: Mr. Em is sitting up in a chair. He is feeling better. No chest pain or pressure other than when he coughs, he has some pain from the chest tube. Otherwise, he is comfortable. OBJECTIVE: VITAL SIGNS: His blood pressure is 152/76, pulse 65 and regular. LUNGS: Clear. CARDIAC: Normal S1, normal S2. ABDOMEN: Soft and nontender. EXTREMITIES: There is no edema. ASSESSMENT: 1. Status post extensive anterior myocardial infarction with multivessel coronary artery disease. Successful stenting with bare-metal stent in the LAD. 2. Lung mass. 3. Continued smoking. 4. Hypertension. PLAN: 1. Increase carvedilol. 2. Increase lisinopril. 3. He will need a LifeVest prior to discharge. Job ID: [id number]
[2019-05-10] MEDS: Insulin Regular 300 UNITS/3 ML VIAL SC PRN ×2 (11:27→21:55)
--- NOTE | 2019-05-10 17:14 | PDOC.HOSPP ---
- Subjective Encounter Date: 05/10/19 Encounter Time: 16:20 Subjective: f/u for STEMI, V-fib arrest and PCI with BMS to LAD. Continues on ASA/Lipitor/ Brillinta/Coreg/Lisinopril. Remains on CT due to PTX after lung bx. - Objective Vital Signs & Weight: Vital Signs (12 hours) Temp Pulse Pulse Pulse Resp BP BP 05/10/19 14:41 98.3 F 05/10/19 14:00 98.3 F 05/10/19 13:00 61 17 05/10/19 09:25 65 62 148/83 H 05/10/19 08:20 65 152/76 H 05/10/19 08:00 05/10/19 07:11 65 18 05/10/19 07:00 98.2 F BP Pulse Ox Pulse Ox Pulse Ox 05/10/19 14:41 05/10/19 14:00 05/10/19 13:00 97 05/10/19 09:25 131/76 97 97 05/10/19 08:20 05/10/19 08:00 96 05/10/19 07:11 97 05/10/19 07:00 Weight Admit Weight 206 lb 9.17 oz Weight 194 lb 14.4 oz Most Recent Monitor Data Heart Rate from ECG 59 NIBP 116/57 NIBP BP-Mean 76 Respiration from ECG 17 SpO2 98 I&O: 05/09/19 05/10/19 05/11/19 06:59 06:59 06:59 Intake Total 448 1307.3 0 Output Total 2420 2895 1095 [facility] -1972 -1587.7 -1095 Result Diagrams: 05/10/19 07:05 05/10/19 07:05 Additional Labs: Accuchecks 05/10/19 05/10/19 05/10/19 16:30 11:19 06:40 POC Glucose 149 H 311 H 172 H 05/09/19 21:16 POC Glucose 177 H Microbiology 05/05/19 11:08 Venous blood - Left Foot Blood Culture - Preliminary Specimen has been received and culture in progress. No Growth to date. 05/05/19 11:08 Venous blood - Left Arm Blood Culture - Preliminary Specimen has been received and culture in progress. No Growth to date. Laboratory Tests 05/05/19 05/05/19 05/05/19 00:05 00:05 11:08 WBC 17.9 H Hgb Hct Sodium Troponin I 444.993 H* 0.010 05/05/19 05/05/19 05/06/19 11:08 20:50 03:45 WBC 14.2 H 14.2 H Hgb Hct Sodium Troponin I 443.616 H* 05/06/19 05/06/19 05/06/19 08:07 08:07 12:00 WBC 16.8 H 18.4 H Hgb Hct Sodium Troponin I 274.792 H* 05/07/19 05/08/19 05/08/19 04:30 03:30 04:05 WBC 18.1 H Hgb 12.9 L 11.7 L Hct 38.1 L 34.2 L Sodium 136 Troponin I Radiology Reviewed by me: Yes (PCXR - absent PTX, CT catheter in place on R) EKG Reviewed by me: Yes (Tele - SR) Hospitalist ROS - Medication Medications: Active Medications Generic Name Dose Route Start Last Admin Trade Name Freq PRN Reason Stop Dose Admin Hydrocodone Bitart/Acetaminophen 1 tab 05/06/19 11:42 05/10/19 12:19 [place] 10/325 PO 1 tab Q4H PRN Administration Pain 4-6 Albuterol/Ipratropium 3 ml 05/08/19 18:30 05/10/19 13:00 Duoneb NEB 3 ml TID-RT HARMAN Administration Amiodarone HCl 200 mg 05/07/19 15:00 05/10/19 08:20 Cordarone PO 200 mg TID HARMAN Administration Aspirin 81 mg 05/06/19 09:00 05/10/19 08:21 Aspirin Chewable PO 81 mg DAILY HARMAN Administration Calcium Carbonate 1,000 mg 05/06/19 20:35 05/07/19 08:09 Tums PO 1,000 mg PRN PRN Administration HEARTBURN/INDIGESTION Carvedilol 3.125 mg 05/08/19 08:00 05/10/19 14:39 Coreg PO Not Given BID- HARMAN Citalopram Hydrobromide 40 mg 05/06/19 09:00 05/10/19 08:20 Celexa PO 40 mg DAILY HARMAN Administration Doxycycline Hyclate 100 mg 05/07/19 21:00 05/10/19 08:20 Vibramycin PO 100 mg BID HARMAN Administration Ceftriaxone Sodium 2 gm/ 100 mls @ 200 mls/hr 05/06/19 20:00 05/09/19 20:33 Sodium Chloride IVPB 100 mls Q24HR HARMAN Administration Insulin Human Regular 0 units 05/05/19 19:35 05/10/19 11:27 Humulin R SC 8 unit .MODERATE SLIDING SC PRN Administration MODERATE SLIDING SCALE Protocol Lisinopril 5 mg 05/07/19 21:00 05/10/19 08:20 Zestril PO 5 mg BID HARMAN Administration Nicotine 14 mg 05/08/19 21:00 05/09/19 20:38 Nicoderm Patch TD 14 mg Q24HR HARMAN Administration Pantoprazole Sodium 40 mg 05/09/19 21:00 05/10/19 08:20 Protonix PO 40 mg BID HARMAN Administration Temazepam 15 mg 05/09/19 19:45 05/09/19 20:38 Restoril PO 15 mg HSPRN PRN Administration Insomnia Ticagrelor 90 mg 05/07/19 21:00 05/10/19 08:22 Brilinta PO 90 mg BID HARMAN Administration - Exam General Appearance: NAD, awake alert Eye: PERRL, anicteric sclera ENT: normocephalic atraumatic, no oropharyngeal lesions Neck: supple, symmetric, no JVD, no thyromegaly Heart: RRR, no murmur, no gallops, no rubs, normal peripheral pulses Respiratory: tachypneic Respiratory - other findings: diminished in bases, occasional wheeze Gastrointestinal: soft, non-tender, non-distended, normal bowel sounds, no palpable masses Extremities: no cyanosis, no clubbing, no edema Skin: normal turgor, no lesions Neurological: cranial nerve grossly intact, no new deficit Musculoskeletal: normal tone, normal strength, no muscle wasting Psychiatric: normal affect, A&O x 3 Hosp A/P (1) STEMI (ST elevation myocardial infarction) Status: Acute Plan: 3v CAD s/p PCI and BMS to LAD, continue ASA/Lipitor/Coreg/Lisinopril/Brillinta (2) Acute and chronic respiratory failure with hypoxia Code(s): J96.21 - ACUTE AND CHRONIC RESPIRATORY FAILURE WITH HYPOXIA Status: Acute Plan: Continue O2 supplementation (3) Acute congestive heart failure Code(s): I50.9 - HEART FAILURE, UNSPECIFIED Status: Acute Qualifiers: Heart failure type: systolic Qualified Code(s): I50.21 - Acute systolic ( congestive) heart failure (4) COPD with exacerbation Code(s): J44.1 - CHRONIC OBSTRUCTIVE PULMONARY DISEASE W (ACUTE) EXACERBATION Status: Acute (5) Diabetes mellitus type 2, insulin dependent Code(s): E11.9 - TYPE 2 DIABETES MELLITUS WITHOUT COMPLICATIONS; Z79.4 - ASSISTED (CURRENT) USE OF INSULIN Status: Chronic (6) Tobacco abuse Code(s): Z72.0 - TOBACCO USE Status: Chronic - Plan continue antibiotics, PT/OT, socially responsible investment adviser, respiratory therapy, DVT proph w/ SCDs Continue supportive mgmt Continue ASA/Brillinta/Amiodarone Continue Coreg/Lisinopril Monitor for arrhythmia Restoril 15mg HS PRN Tobacco cessation resources AM lab: CMP, CBC
--- NOTE | 2019-05-10 18:37 | PRG ---
DATE OF SERVICE: 05/10/2019 SERVICE: Pulmonary Medicine. INTERVAL HISTORY: The patient is doing great from a respiratory standpoint. He is on room air. His leak is improving on the atrium. That being said, it is still present. Denies any current fevers or chills. There are no significant overnight events. PHYSICAL EXAMINATION: VITAL SIGNS: Afebrile, pulse 63, blood pressure 122/66, respirations 13, and saturation 96% on room air. GENERAL: The patient is awake and alert, in no apparent distress. LUNGS: Decent air entry bilaterally with prolonged expiratory phase. No wheezing, crackles, or rhonchi present today. HEART: Normal rate and regular. ABDOMEN: Soft, nontender, and nondistended. Bowel sounds are positive. MUSCULOSKELETAL: No cyanosis or clubbing. No pitting in the bilateral lower extremities. NEUROLOGIC: Grossly nonfocal. LABORATORY DATA: WBC 13.8, hemoglobin 12.1, and platelets 189,000. Neutrophil count is 64% on top of 9% bands. Basic metabolic profile is unremarkable except for an improving sodium of 131. Liver function studies are unremarkable. Blood cultures x2 are unremarkable. IMAGING STUDIES: Chest x-ray demonstrates interval repositioning of the right pleural catheter. Improvement in the right-sided pneumothorax. Chest wall emphysema is present. ASSESSMENT: 1. Acute hypoxic respiratory failure, resolved. 2. Chronic obstructive pulmonary disease with acute exacerbation, at baseline. 3. Acute myocardial infarction, status post percutaneous coronary intervention with bare-metal stent. 4. Squamous-cell carcinoma of the lung. 5. Pneumothorax, iatrogenic, status post thoracostomy tube placement. 6. Acute systolic heart failure, (25% ejection fraction). 7. Chronic diastolic heart failure. 8. Gross hematuria. 9. Hematemesis, resolved. DISCUSSION AND PLAN: I gave the patient a laboratory holiday tomorrow. He is stable for transition to the telemetry unit. Pulmonary/Critical Care will continue to follow along. We are waiting for the air leak to stop. Once it stopped, we can remove the chest tube. Job ID: [id number]
[2019-05-10] MEDS: cefTRIAXone\\ROCEPHIN 2 GM in Sodium Chloride 0.9% 100 ML IVPB SCH (20:00)
[2019-05-10] MEDS: Nicotine 14 MG PATCH TD SCH (20:03)
[2019-05-10] MEDS: Temazepam 15 MG CAP PO PRN (21:55)
[2019-05-11] MEDS: Insulin Regular 300 UNITS/3 ML VIAL SC PRN ×3 (05:59→22:20)
[2019-05-11] MEDS: HYDROcodone/Acetaminophen 10/325 mg Tablet PO PRN ×4 (06:08→22:21)
[2019-05-11] MEDS: Doxycycline 100 MG CAP PO SCH ×2 (08:41→20:11)
[2019-05-11] MEDS: Aspirin Chewable 81 MG TAB PO SCH (08:42)
[2019-05-11] MEDS: Citalopram 20 MG TAB PO SCH (08:42)
[2019-05-11] MEDS: Lisinopril 5 MG TAB PO SCH ×2 (08:42→20:11)
[2019-05-11] MEDS: Carvedilol 3.125 MG TAB PO SCH ×2 (08:42→15:56)
[2019-05-11] MEDS: TICAGRELOR 90 MG TABLET PO SCH ×2 (08:42→20:12)
[2019-05-11] MEDS: Amiodarone 200 MG TAB PO SCH ×3 (08:43→20:11)
--- NOTE | 2019-05-11 10:00 | PRG ---
DATE OF SERVICE: 05/11/2019 SUBJECTIVE: Mr. Em is sitting up in the chair. He is feeling well with no complaints. He is not short of breath, not having any chest pain. OBJECTIVE: VITAL SIGNS: Blood pressure 135/60, pulse 60 and sinus. LUNGS: Clear. CARDIAC: Normal S1, normal S2. ABDOMEN: Soft, nontender. EXTREMITIES: No edema. ASSESSMENT: 1. Status post extensive anterior myocardial infarction with successful percutaneous coronary intervention. 2. A 3-vessel coronary artery disease. 3. Depressed left ventricular function. 4. Lung mass, possible lung cancer, biopsy pending. 5. Status post pneumothorax. PLAN: 1. He is on ELROY inhibitors. 2. Dual anti-platelet therapy. 3. Beta blockers. 4. Awaiting transfer to Telemetry. 5. He received a LifeVest prior to being sent home. Dr. Diaz will see the patient tomorrow. I will be out in the next few days. Job ID: [id number]
--- NOTE | 2019-05-11 10:57 | PRG ---
DATE OF SERVICE: 05/11/2019 SERVICE: Pulmonary Medicine. INTERVAL HISTORY: The patient is doing really well from respiratory standpoint. His leak has finally stopped. He denies any current chest discomfort, nausea, or vomiting. He is breathing comfortably. He remains on room air. There has been no interval change to his condition. PHYSICAL EXAMINATION: VITAL SIGNS: Afebrile, pulse 61, blood pressure 134/71, respirations 15, and saturation 93% on room air. GENERAL: The patient is awake and alert, in no apparent distress. LUNGS: Wonderful air entry. There is a prolonged expiratory phase. Minimal wheezing is present. Rhonchi are gone. HEART: Normal rate. Regular. ABDOMEN: Soft, nontender, and nondistended. Bowel sounds positive. MUSCULOSKELETAL: No cyanosis or clubbing. There is no pitting in the bilateral lower extremities. NEUROLOGIC: Grossly nonfocal. ASSESSMENT: 1. Acute hypoxic respiratory failure, resolved. 2. Squamous cell carcinoma of the lung, status post a transcutaneous biopsy. 3. Pneumothorax, iatrogenic, status post thoracostomy tube placement. 4. Acute systolic heart failure. 5. Acute myocardial infarction, status post percutaneous coronary intervention with bare-metal stent. 6. Chronic diastolic heart failure. 7. Gross hematuria. 8. Hematemesis. DISCUSSION AND PLAN: The patient is doing fine from respiratory standpoint. We are going to make an attempt to remove this chest tube today. I will repeat a chest x-ray in about 2 to 3 hours to make certain he did not have any recurrence of pneumothorax. There is a chest tube kit at bedside in the event if this occurs. Pulmonary/Critical Care will continue to follow along while the patient remains inhouse. If the chest x-ray this afternoon is reassuring, he can be transitioned to the telemetry unit. Job ID: [id number]
[2019-05-11] MEDS ORDERED: Potassium Chloride 20 MEQ TAB PO SCH (11:00)
[2019-05-11] MEDS ORDERED: Furosemide 20 MG/2 ML VIAL SLOW IVP SCH (11:00)
--- NOTE | 2019-05-11 13:13 | RAD ---
Exam: Chest one view portable: HISTORY: Status post tube removal COMPARISON: 05/10/2019 FINDINGS: Fairly extensive bilateral subcutaneous emphysema. Heart size is within normal limits. No evidence fo r significant pneumothorax. No evidence for pleural effusion. IMPRESSION: Extensive subcutaneous emphysema. No convincing evidence for significant pneumothorax.
--- NOTE | 2019-05-11 14:30 | PQF ---
DATE: 05-11-19 ATTN: DR. ABELARDO ZENG Please exercise your independent, professional judgment in responding to the clarification form. Clinical indicators are provided on the bottom of this form for your review Please check appropriate box(s) to clarify if the following diagnosis has been ruled in or ruled out: SEPSIS WITH SEPTIC SHOCK [ ] Ruled in diagnosis [ ] Continue to treat [ ] Resolved [ x ] Ruled out diagnosis [ ] Other diagnosis [ ] Unable to determine In addition, please specify: Present on Admission (POA): [ ] Yes [ x ] No [ ] Unable to determine For continuity of documentation, please document condition throughout progress notes and discharge summary. Thank You. CLINICAL INDICATORS - SIGNS / SYMPTOMS / LABS / RESULTS AND LOCATION IN MR: ER DX: RESPIRATORY FAILURE, R SIDED PNEUMOTHORAX, STEMI H&P 05-05-19: SEPSIS SECONDARY TO HYPOVOLEMIA SEPTIC SHOCK REQUIRING VASOPRESSORS. WBC: 05-05-19: 17.9, 14.2 05-06-19: 14.2, 16.8, 18.4 05-07-19: 18.1 05-09-19: 15.9 05-10-19: 13.8 BANDS: 05-06-19: 4 05-06-19: 28 LACTIC ACID: 05-05-19: 4.3, 3.3 RISK FACTORS / RESULTS AND LOCATION IN MR: H&P 05-05-19: S/P LUNG BIOPSY, L APICAL PNEUMOTHORAX, ACUTE HYPOXIC RESPIRATORY FAILURE REQUIRING INTUBATION, SEPSIS SECONDARY TO HYPOVOLEMIA SEPTIC SHOCK REQUIRING VASOPRESSORS, INFERIOR WALL TN/ STEMI TREATMENTS / RESULTS AND LOCATION IN MR: ER NOTES 05-05-19: VANCOMYCIN IV, CEFTRIAXONE IV, IVF NS (This form is maintained as a part of the permanent medical record) 2014 [employer]. All Rights Reserved [email or web address] Office: [phone] [facility]
--- NOTE | 2019-05-11 16:56 | PDOC.HOSPP ---
- Subjective Encounter Date: 05/11/19 Encounter Time: 11:45 Subjective: f/u for STEMI with PCI/BMS to LAD, pneumothorax with CT. Receiving Rocephin/ Doxycycline. No new complaints. - Objective Vital Signs & Weight: Vital Signs (12 hours) Temp Pulse Pulse Pulse Resp BP BP 05/11/19 15:41 97.6 F 68 12 05/11/19 13:47 66 17 05/11/19 12:00 98.1 F 05/11/19 09:02 73 66 132/92 H 05/11/19 08:42 63 135/60 05/11/19 08:00 98.0 F 05/11/19 06:59 63 15 BP BP Pulse Ox 05/11/19 15:41 127/58 L 95 05/11/19 13:47 100 05/11/19 12:00 91 L 05/11/19 09:02 116/55 L 05/11/19 08:42 05/11/19 08:00 90 L 05/11/19 06:59 96 Weight Admit Weight 206 lb 9.17 oz Weight 203 lb 7.787 oz Most Recent Monitor Data Heart Rate from ECG 67 NIBP 125/87 NIBP BP-Mean 99 Respiration from ECG 13 SpO2 94 I&O: 05/10/19 05/11/19 05/12/19 06:59 06:59 06:59 Intake Total 1307.3 1145 840 Output Total 2895 2128 1050 Balance -1587.7 -983 -210 Result Diagrams: 05/10/19 07:05 05/10/19 07:05 Additional Labs: Accuchecks 05/11/19 05/11/19 05/10/19 11:15 06:02 21:48 POC Glucose 271 H 248 H 222 H Radiology Reviewed by me: Yes (PCXR - subq emphysema, no PTX) EKG Reviewed by me: Yes (Tele - SR) Hospitalist ROS - Medication Medications: Active Medications Generic Name Dose Route Start Last Admin Trade Name Freq PRN Reason Stop Dose Admin Hydrocodone Bitart/Acetaminophen 1 tab 05/06/19 11:42 05/11/19 10:08 [place] 10/325 PO 1 tab Q4H PRN Administration Pain 4-6 Albuterol/Ipratropium 3 ml 05/08/19 18:30 05/11/19 13:47 Duoneb NEB 3 ml TID-RT [facility] Administration Amiodarone HCl 200 mg 05/07/19 15:00 05/11/19 15:05 Cordarone PO 200 mg TID [facility] Administration Aspirin 81 mg 05/06/19 09:00 05/11/19 08:42 Aspirin Chewable PO 81 mg DAILY [facility] Administration Calcium Carbonate 1,000 mg 05/06/19 20:35 05/07/19 08:09 Tums PO 1,000 mg PRN PRN Administration HEARTBURN/INDIGESTION Carvedilol 3.125 mg 05/08/19 08:00 05/11/19 15:56 Coreg PO 3.125 mg BID-WM [facility] Administration Citalopram Hydrobromide 40 mg 05/06/19 09:00 05/11/19 08:42 Celexa PO 40 mg DAILY [facility] Administration Doxycycline Hyclate 100 mg 05/07/19 21:00 05/11/19 08:41 Vibramycin PO 100 mg BID [facility] Administration Ceftriaxone Sodium 2 gm/ 100 mls @ 200 mls/hr 05/06/19 20:00 05/10/19 20:00 Sodium Chloride IVPB 100 mls Q24HR [facility] Administration Insulin Human Regular 0 units 05/05/19 19:35 05/11/19 11:15 Humulin R SC 6 unit .MODERATE SLIDING SC PRN Administration MODERATE SLIDING SCALE Protocol Lisinopril 5 mg 05/07/19 21:00 05/11/19 08:42 Zestril PO 5 mg BID [facility] Administration Nicotine 14 mg 05/08/19 21:00 05/10/19 20:03 Nicoderm Patch TD 14 mg Q24HR [facility] Administration Pantoprazole Sodium 40 mg 05/09/19 21:00 05/11/19 08:43 Protonix PO 40 mg BID [facility] Administration Temazepam 15 mg 05/09/19 19:45 05/10/19 21:55 Restoril PO 15 mg HSPRN PRN Administration Insomnia Ticagrelor 90 mg 05/07/19 21:00 05/11/19 08:42 Brilinta PO 90 mg BID [facility] Administration - Exam General Appearance: NAD, awake alert Eye: PERRL, anicteric sclera ENT: normocephalic atraumatic, no oropharyngeal lesions Neck: supple, symmetric, no JVD, no thyromegaly Heart: RRR, no murmur, no gallops, no rubs, normal peripheral pulses Respiratory: CTAB, no rales, no tachypnea, rhonchi Gastrointestinal: soft, non-tender, non-distended, normal bowel sounds, no palpable masses Extremities: no cyanosis, no clubbing, no edema Skin: normal turgor, no lesions Neurological: cranial nerve grossly intact, no new deficit Musculoskeletal: normal tone, normal strength, no muscle wasting Psychiatric: normal affect, A&O x 3 Hosp A/P (1) STEMI (ST elevation myocardial infarction) Status: Acute Plan: S/P PCI with BMS to LAD, continue ASA/Brillinta/Coreg/Lisinopril/Lipitor (2) Acute and chronic respiratory failure with hypoxia Code(s): J96.21 - ACUTE AND CHRONIC RESPIRATORY FAILURE WITH HYPOXIA Status: Acute Plan: Resolving, continue O2 support (3) Acute congestive heart failure Code(s): I50.9 - HEART FAILURE, UNSPECIFIED Status: Acute Qualifiers: Heart failure type: systolic Qualified Code(s): I50.21 - Acute systolic ( congestive) heart failure (4) COPD with exacerbation Code(s): J44.1 - CHRONIC OBSTRUCTIVE PULMONARY DISEASE W (ACUTE) EXACERBATION Status: Acute Plan: Continue Prednisone, Duonebs, O2 (5) Diabetes mellitus type 2, insulin dependent Code(s): E11.9 - TYPE 2 DIABETES MELLITUS WITHOUT COMPLICATIONS; Z79.4 - [employer] (CURRENT) USE OF INSULIN Status: Chronic Plan: ISS, resume Metformin, Serial accuchecks (6) Tobacco abuse Code(s): Z72.0 - TOBACCO USE Status: Chronic - Plan continue antibiotics, PT/OT, social sciences lecturer, respiratory therapy, out of bed/ ambulate, DVT proph w/SCDs Continue supportive mgmt Continue ASA/Brillinta/Amiodarone Continue Coreg/Lisinopril Monitor for arrhythmia Restoril 15mg HS PRN Tobacco cessation resources Resume Metformin
[2019-05-11] MEDS: Temazepam 15 MG CAP PO PRN (20:11)
[2019-05-11] MEDS: Nicotine 14 MG PATCH TD SCH (20:11)
[2019-05-11] MEDS: cefTRIAXone\\ROCEPHIN 2 GM in Sodium Chloride 0.9% 100 ML IVPB SCH (20:11)
[2019-05-11] MEDS ORDERED: Dextrose 5% in Water 1,000 ML IV PRN (20:37)
[2019-05-12] MEDS: HYDROcodone/Acetaminophen 10/325 mg Tablet PO PRN ×3 (05:37→20:49)
[2019-05-12] MEDS ORDERED: metFORMIN 500 MG TAB PO SCH (08:00)
[2019-05-12] MEDS: Doxycycline 100 MG CAP PO SCH ×2 (09:16→20:53)
[2019-05-12] MEDS: Lisinopril 5 MG TAB PO SCH ×2 (09:17→20:53)
[2019-05-12] MEDS: Carvedilol 3.125 MG TAB PO SCH ×2 (09:18→17:33)
[2019-05-12] MEDS: TICAGRELOR 90 MG TABLET PO SCH ×2 (09:19→20:53)
[2019-05-12] MEDS: Aspirin Chewable 81 MG TAB PO SCH (09:19)
[2019-05-12] MEDS: Amiodarone 200 MG TAB PO SCH ×3 (09:19→20:53)
[2019-05-12] MEDS: Citalopram 20 MG TAB PO SCH (09:25)
[2019-05-12] MEDS: Insulin Regular 300 UNITS/3 ML VIAL SC PRN ×3 (09:26→20:57)
--- NOTE | 2019-05-12 13:27 | PDOC.CPN ---
- Subjective Date: 05/12/19 Time: 13:41 Interval history: The pt seen and examined. No overnight events. No cardiac complaints. - Objective Allergies/Adverse Reactions: Allergies Allergy/AdvReac Type Severity Reaction Status Date / Time No Known Allergies Allergy Verified 05/05/19 11:19 Visit Medications: Current Medications Acetaminophen (Tylenol) 650 mg PO Q4H PRN PRN Reason: Headache/Fever/Mild Pain (1-3) Hydrocodone Bitart/Acetaminophen ([place] 10/325) 1 tab PO Q4H PRN PRN Reason: Pain 4-6 Last Admin: 05/12/19 13:16 Dose: 1 tab Albuterol/Ipratropium (Duoneb) 3 ml NEB TID-RT [facility] Last Admin: 05/12/19 07:11 Dose: 3 ml Amiodarone HCl (Cordarone) 200 mg PO TID [facility] Last Admin: 05/12/19 09:19 Dose: 200 mg Aspirin (Aspirin Chewable) 81 mg PO DAILY [facility] Last Admin: 05/12/19 09:19 Dose: 81 mg Calcium Carbonate (Tums) 1,000 mg PO PRN PRN PRN Reason: HEARTBURN/INDIGESTION Last Admin: 05/07/19 08:09 Dose: 1,000 mg Carvedilol (Coreg) 3.125 mg PO BID-[facility] Last Admin: 05/12/19 09:18 Dose: 3.125 mg Citalopram Hydrobromide (Celexa) 40 mg PO DAILY [facility] Last Admin: 05/12/19 09:25 Dose: 40 mg Dextrose/Water (Dextrose 50%) 25 gm IVP PRN PRN PRN Reason: HYPOGLYCEMIA PROTOCOL Doxycycline Hyclate (Vibramycin) 100 mg PO BID [facility] Last Admin: 05/12/19 09:16 Dose: 100 mg Glucagon (Glucagon) 1 mg IM PRN PRN PRN Reason: HYPOGLYCEMIA PROTOCOL Dextrose/Water (D5w) 1,000 mls @ 0 mls/hr IV INF PRN PRN Reason: HYPOGLYCEMIA PROTOCOL Ceftriaxone Sodium 2 gm/ (Sodium Chloride) 100 mls @ 200 mls/hr IVPB Q24HR [facility] Last Admin: 05/11/19 20:11 Dose: 100 mls Dextrose/Water (D5w) 1,000 mls @ 0 mls/hr IV .Q0M PRN PRN Reason: Hypoglycemia Insulin Human Regular (Humulin R) 0 units SC .MODERATE SLIDING SC PRN; Protocol PRN Reason: MODERATE SLIDING SCALE Last Admin: 05/12/19 13:13 Dose: 4 unit Insulin Human Regular (Humulin R) 0 units SC .BEDTIME SLIDING SC PRN PRN Reason: Bedtime Correctional Scale Last Admin: 05/11/19 22:20 Dose: 3 unit Lisinopril (Zestril) 5 mg PO BID [facility] Last Admin: 05/12/19 09:17 Dose: 5 mg Metformin HCl (Glucophage) 1,000 mg PO QAM-WM [facility] Last Admin: 05/12/19 09:16 Dose: 1,000 mg Nicotine (Nicoderm Patch) 14 mg TD Q24HR [facility] Last Admin: 05/11/19 20:11 Dose: 14 mg Pantoprazole Sodium (Protonix) 40 mg PO BID [facility] Last Admin: 05/12/19 13:13 Dose: 40 mg Senna/Docusate Sodium (Senokot S) 2 tab PO BID PRN PRN Reason: Constipation Sodium Chloride (Flush - Normal Saline) 10 ml IVF PRN PRN PRN Reason: Saline Flush Temazepam (Restoril) 15 mg PO HSPRN PRN PRN Reason: Insomnia Last Admin: 05/11/19 20:11 Dose: 15 mg Ticagrelor (Brilinta) 90 mg PO BID [facility] Last Admin: 05/12/19 09:19 Dose: 90 mg Vital Signs & Weight: Vital Signs Temp Pulse Pulse Pulse Resp BP BP 05/12/19 10:09 72 62 148/66 H 124/61 05/12/19 08:00 71 17 05/12/19 07:13 05/12/19 07:11 76 16 05/12/19 03:30 98.4 F 74 14 BP Pulse Ox Pulse Ox Pulse Ox 05/12/19 10:09 96 98 05/12/19 08:00 144/68 H 93 L 05/12/19 07:13 93 L 05/12/19 07:11 05/12/19 03:30 117/57 L 92 L Admit Weight 206 lb 9.17 oz Weight 202 lb 1 oz - Physical Exam General: alert & oriented x3 HEENT: mucus membranes moist Neck: supple neck Cardiac: regular rate and rhythm, S1/S2 Lungs: clear to auscultation Neuro: cranial nerve 2-12 intact - Labs Result Diagrams: 05/10/19 07:05 05/10/19 07:05 Troponin/CKMB Troponin I 274.792 ng/mL (< 0.028) H* 05/06/19 08:07 - Telemetry Sinus rhythms and dysrhythmias: sinus rhythm - Assessment/Plan Assessment/Plan: 1. CAD with s/p PCI on 05/05/2019 with BMS to LAD (75% stenosis in prox RCA and 100% in distal RCA which fill distal; 50% in Lt Cx) - stable; continue ASA/ Brillinta/Coreg/Lisinopril/Lipitor 2. S/p V-fib arrest - remains in SR; on Amiodarone 200mg TID since 05/07/2019; 3. Acute on Chronic combined HF with EF 20-25% and grade I dd - stable with coreg and lisinopril; stable without any diuretics; LifeVest was already ordered 4. DM type 2 - ISS, resume Metformin, Serial accuchecks 5. COPD 6. Tobacco abuse - strongly recommend smoking cessation 7. hx of GI bleed - stable with ASA and Brilinta 8. Lung mass. Biopsy: squamous cell . MAR reviewed * Dr Marcial's pt Pt. seen and eval. by me. I agree with the A/P by the WASTEWATER SUPERVISOR. No further Ventricular arrhythmias. Decrease amiodarone to 200mg bid. ? Plan to treat the lung cancer. Continue cardiac meds. ángel
--- NOTE | 2019-05-12 14:36 | PDOC.HOSPP ---
- Subjective Encounter Date: 05/12/19 Encounter Time: 14:30 Subjective: f/u for cardiac V-fib arrest s/p PCI with BMS to LAD. Remains on Brillinta/ASA/ Lipitor. Nursing reports hematuria with intermittent clearing with flushing. - Objective Vital Signs & Weight: Vital Signs (12 hours) Temp Pulse Pulse Pulse Resp BP BP 05/12/19 13:28 61 16 05/12/19 12:00 98.2 F 61 21 H 05/12/19 10:09 72 62 148/66 H 124/61 05/12/19 08:00 71 17 05/12/19 07:13 05/12/19 07:11 76 16 05/12/19 03:30 98.4 F 74 14 BP Pulse Ox Pulse Ox Pulse Ox 05/12/19 13:28 05/12/19 12:00 119/57 L 96 05/12/19 10:09 96 98 05/12/19 08:00 144/68 H 93 L 05/12/19 07:13 93 L 05/12/19 07:11 05/12/19 03:30 117/57 L 92 L Weight Admit Weight 206 lb 9.17 oz Weight 202 lb 1 oz Most Recent Monitor Data Heart Rate from ECG 67 NIBP 125/87 NIBP BP-Mean 99 Respiration from ECG 13 SpO2 94 I&O: 05/11/19 05/12/19 05/13/19 06:59 06:59 06:59 Intake Total 1145 1920 Output Total 2128 2725 Balance -983 805 Result Diagrams: 05/10/19 07:05 05/10/19 07:05 Additional Labs: Accuchecks 05/12/19 05/12/19 05/11/19 10:53 06:01 20:14 POC Glucose 219 H 184 H 289 H 05/11/19 17:08 POC Glucose 189 H Microbiology 05/05/19 11:08 Venous blood - Left Foot Blood Culture - Preliminary Specimen has been received and culture in progress. No Growth to date. 05/05/19 11:08 Venous blood - Left Arm Blood Culture - Preliminary Specimen has been received and culture in progress. No Growth to date. Laboratory Tests 05/05/19 05/05/19 05/05/19 00:05 00:05 11:08 WBC 17.9 H Hgb Hct Sodium Troponin I 444.993 H* 0.010 05/05/19 05/05/19 05/06/19 11:08 20:50 03:45 WBC 14.2 H 14.2 H Hgb Hct Sodium Troponin I 443.616 H* 05/06/19 05/06/19 05/06/19 08:07 08:07 12:00 WBC 16.8 H 18.4 H Hgb Hct Sodium Troponin I 274.792 H* 05/07/19 05/08/19 05/08/19 04:30 03:30 04:05 WBC 18.1 H Hgb 12.9 L 11.7 L Hct 38.1 L 34.2 L Sodium 136 Troponin I EKG Reviewed by me: Yes (Tele - SR) Hospitalist ROS - Medication Medications: Active Medications Generic Name Dose Route Start Last Admin Trade Name Freq PRN Reason Stop Dose Admin Hydrocodone Bitart/Acetaminophen 1 tab 05/06/19 11:42 05/12/19 13:16 [place] 10/325 PO 1 tab Q4H PRN Administration Pain 4-6 Albuterol/Ipratropium 3 ml 05/08/19 18:30 05/12/19 13:28 Duoneb NEB 3 ml TID-RT [facility] Administration Amiodarone HCl 200 mg 05/07/19 15:00 05/12/19 09:19 Cordarone PO 200 mg TID [facility] Administration Aspirin 81 mg 05/06/19 09:00 05/12/19 09:19 Aspirin Chewable PO 81 mg DAILY [facility] Administration Calcium Carbonate 1,000 mg 05/06/19 20:35 05/07/19 08:09 Tums PO 1,000 mg PRN PRN Administration HEARTBURN/INDIGESTION Carvedilol 3.125 mg 05/08/19 08:00 05/12/19 09:18 Coreg PO 3.125 mg BID-WM [facility] Administration Citalopram Hydrobromide 40 mg 05/06/19 09:00 05/12/19 09:25 Celexa PO 40 mg DAILY [facility] Administration Doxycycline Hyclate 100 mg 05/07/19 21:00 05/12/19 09:16 Vibramycin PO 100 mg BID [facility] Administration Ceftriaxone Sodium 2 gm/ 100 mls @ 200 mls/hr 05/06/19 20:00 05/11/19 20:11 Sodium Chloride IVPB 100 mls Q24HR [facility] Administration Insulin Human Regular 0 units 05/05/19 19:35 05/12/19 13:13 Humulin R SC 4 unit .MODERATE SLIDING SC PRN Administration MODERATE SLIDING SCALE Protocol Insulin Human Regular 0 units 05/11/19 20:37 05/11/19 22:20 Humulin R SC 3 unit .BEDTIME SLIDING SC PRN Administration Bedtime Correctional Scale Lisinopril 5 mg 05/07/19 21:00 05/12/19 09:17 Zestril PO 5 mg BID [facility] Administration Metformin HCl 1,000 mg 05/12/19 08:00 05/12/19 09:16 Glucophage PO 1,000 mg QAM-WM [facility] Administration Nicotine 14 mg 05/08/19 21:00 05/11/19 20:11 Nicoderm Patch TD 14 mg Q24HR [facility] Administration Pantoprazole Sodium 40 mg 05/09/19 21:00 05/12/19 13:13 Protonix PO 40 mg BID [facility] Administration Temazepam 15 mg 05/09/19 19:45 05/11/19 20:11 Restoril PO 15 mg HSPRN PRN Administration Insomnia Ticagrelor 90 mg 05/07/19 21:00 05/12/19 09:19 Brilinta PO 90 mg BID [facility] Administration - Exam General Appearance: NAD, awake alert Eye: PERRL, anicteric sclera ENT: normocephalic atraumatic, no oropharyngeal lesions Neck: supple, symmetric, no JVD, no thyromegaly Heart: RRR, no murmur, no gallops, no rubs, normal peripheral pulses Respiratory: CTAB, no wheezes, no rales, no ronchi Gastrointestinal: soft, non-tender, non-distended, normal bowel sounds Gastrointestinal - other findings: Pfeiffer with light hematuria Extremities: no cyanosis, no clubbing, no edema Skin: normal turgor, no lesions Neurological: cranial nerve grossly intact, no new deficit Musculoskeletal: normal tone, normal strength Psychiatric: normal affect, A&O x 3 Hosp A/P (1) STEMI (ST elevation myocardial infarction) Status: Acute Plan: s/p PCI with BMS to LAD, continue ASA/Brillinta/Lipitor/Lisinopril/Coreg (2) Acute and chronic respiratory failure with hypoxia Code(s): J96.21 - ACUTE AND CHRONIC RESPIRATORY FAILURE WITH HYPOXIA Status: Acute Plan: Improved, supportive mgmt (3) Acute congestive heart failure Code(s): I50.9 - HEART FAILURE, UNSPECIFIED Status: Acute Qualifiers: Heart failure type: systolic Qualified Code(s): I50.21 - Acute systolic ( congestive) heart failure Plan: EF 20-25%, Grade I/III diast dysfunction, Life Vest ordered (4) COPD with exacerbation Code(s): J44.1 - CHRONIC OBSTRUCTIVE PULMONARY DISEASE W (ACUTE) EXACERBATION Status: Acute Plan: Continue Doxycycline/Rocephin/Duonebs (5) Diabetes mellitus type 2, insulin dependent Code(s): E11.9 - TYPE 2 DIABETES MELLITUS WITHOUT COMPLICATIONS; Z79.4 - SENIOR LIVING (CURRENT) USE OF INSULIN Status: Chronic (6) Tobacco abuse Code(s): Z72.0 - TOBACCO USE Status: Chronic (7) Hematuria Code(s): R31.9 - HEMATURIA, UNSPECIFIED Status: Acute Plan: Continue to monitor, Pfeiffer catheter removed, may need to adjust Brillinta, consider re-evaluation from Urology - Plan continue antibiotics, PT/OT, social worker palliative care, respiratory therapy, out of bed/ ambulate, DVT proph w/SCDs, dc pfeiffer Continue supportive mgmt Continue ASA/Brillinta/Amiodarone Continue Coreg/Lisinopril Monitor for arrhythmia Restoril 15mg HS PRN Tobacco cessation resources Change Metformin 1000mg BID D/C Pfeiffer Life Vest prior to d/c
[2019-05-12] MEDS ORDERED: Nicotine 14 MG PATCH TD PRN (16:20)
--- NOTE | 2019-05-12 17:42 | PRG ---
DATE OF SERVICE: 05/12/2019 SERVICE: Pulmonary Medicine. INTERVAL HISTORY: The patient is doing outstanding from respiratory standpoint. He is breathing comfortably. He has no complaints of chest discomfort, nausea, or vomiting. He has been able to walk with Physical Therapy. He feels weak, but his strengthening up on a day-by-day basis. He needs to be fit for a LifeVest before being discharged from the hospital. PHYSICAL EXAMINATION: VITAL SIGNS: Afebrile, pulse 66, blood pressure 115/56, respirations 21, and saturation 96%, currently on room air. GENERAL: The patient is awake and alert, in no apparent distress. LUNGS: Great air entry bilaterally. There is a slightly prolonged expiratory phase, but no wheezing is present. Minimal dependent crackles are noted. HEART: Normal rate. Regular. ABDOMEN: Soft, nontender, and nondistended. Bowel sounds are positive. MUSCULOSKELETAL: No cyanosis or clubbing. There is no pitting in the bilateral lower extremities. NEUROLOGIC: Grossly nonfocal. LABORATORY DATA: Blood sugars ranged from 189 to 248. Blood cultures x2 are negative. IMAGING STUDIES: Chest x-ray demonstrates interval removal of the anterior chest tube. There was extensive subcutaneous emphysema. There is no pneumothorax present after removal of chest tube. ASSESSMENT: 1. Acute hypoxic respiratory failure, resolved. 2. Squamous cell carcinoma of the lung, status post transcutaneous biopsy. 3. Pneumothorax, iatrogenic, status post thoracostomy tube placement and subsequent removal. 4. Acute systolic heart failure. 5. Acute myocardial infarction in the event of hypoxemia associated with the brief pneumothorax. 6. Chronic diastolic heart failure. 7. Gross hematuria. 8. Hematemesis. DISCUSSION AND PLAN: At this point, the patient is doing fine from respiratory standpoint and can be considered for discharge from the hospital on the basis of lungs. That being said, we are awaiting a fitting for a LifeVest. He will also require outpatient Cardiology, Neurology consultations. The presumption of his hematemesis was associated with Ena-Juárez tear following an episode of retching and then subsequent hematemesis. Oncology consultation will be placed. Pulmonary will follow intermittently during this hospital stay. If he gets into trouble over the weekend, give Dr. Christensen a phone call. Otherwise, I will simply see him on Wednesday if he is still in-house. Job ID: [id number]
[2019-05-12] MEDS: cefTRIAXone\\ROCEPHIN 2 GM in Sodium Chloride 0.9% 100 ML IVPB SCH (20:43)
[2019-05-12] MEDS: metFORMIN 500 MG TAB PO SCH (20:52)
[2019-05-12] MEDS ORDERED: Atorvastatin Calcium 10 MG TAB PO SCH (21:00)
[2019-05-12] MEDS: Temazepam 15 MG CAP PO PRN (23:28)
[2019-05-13] MEDS: HYDROcodone/Acetaminophen 10/325 mg Tablet PO PRN ×2 (02:16→08:55)
[2019-05-13] MEDS: Aspirin Chewable 81 MG TAB PO SCH (08:48)
[2019-05-13] MEDS: Amiodarone 200 MG TAB PO SCH (08:48)
[2019-05-13] MEDS: Carvedilol 3.125 MG TAB PO SCH ×2 (08:48→17:30)
[2019-05-13] MEDS: Citalopram 20 MG TAB PO SCH (08:49)
[2019-05-13] MEDS: Lisinopril 5 MG TAB PO SCH (08:49)
[2019-05-13] MEDS: Doxycycline 100 MG CAP PO SCH (08:49)
[2019-05-13] MEDS: metFORMIN 500 MG TAB PO SCH (08:50)
[2019-05-13] MEDS: TICAGRELOR 90 MG TABLET PO SCH (08:50)
--- NOTE | 2019-05-13 09:57 | PDOC.HOSPP ---
- Subjective Encounter Date: 05/13/19 Encounter Time: 11:40 Subjective: Patient with a few clots in urine early today, just reddish with second void. No trouble urinating. Some diffuse body aches/muscular pains. Heme/onc consulted by Dr. Schulz, but really is an outpatient f/u for the cancer. Awaiting LifeVest fitting. Patient ambulating well and eager to go home today. Does have an hour drive to get home. - Objective Vital Signs & Weight: Vital Signs (12 hours) Temp Pulse Resp BP BP BP Pulse Ox 05/13/19 07:46 97.5 F L 69 16 127/58 L 93 L 05/13/19 06:34 72 16 96 05/13/19 03:19 98 F 72 16 125/59 L 93 L 05/12/19 23:46 98 F 75 17 105/54 L 92 L Weight Admit Weight 206 lb 9.17 oz Weight 202 lb 9.6 oz Most Recent Monitor Data Heart Rate from ECG 67 NIBP 125/87 NIBP BP-Mean 99 Respiration from ECG 13 SpO2 94 I&O: 05/12/19 05/13/19 05/14/19 06:59 06:59 07:59 Intake Total 1920 2480 Output Total 2725 1330 Balance -805 1150 Result Diagrams: 05/10/19 07:05 05/10/19 07:05 Additional Labs: Accuchecks 05/13/19 05/12/19 05/12/19 05:57 20:39 17:01 POC Glucose 210 H 217 H 137 H 05/12/19 10:53 POC Glucose 219 H Hospitalist ROS - Review of Systems Constitutional: denies: fever, chills Respiratory: denies: cough, shortness of breath Cardiovascular: denies: chest pain, palpitations Gastrointestinal: denies: nausea, vomiting, abdominal pain Musculoskeletal: reports: neck pain, shoulder pain, back pain, leg pain Neurological: denies: weakness, numbness - Medication Medications: Active Medications Generic Name Dose Route Start Last Admin Trade Name Freq PRN Reason Stop Dose Admin Hydrocodone Bitart/Acetaminophen 1 tab 05/06/19 11:42 05/13/19 08:55 [place] 10/325 PO 1 tab Q4H PRN Administration Pain 4-6 Albuterol/Ipratropium 3 ml 05/08/19 18:30 03/07/20 06:34 Duoneb NEB 3 ml TID-RT [facility] Administration Amiodarone HCl 200 mg 05/12/19 21:00 05/13/19 08:48 Cordarone PO 200 mg BID [facility] Administration Aspirin 81 mg 05/06/19 09:00 05/13/19 08:48 Aspirin Chewable PO 81 mg DAILY [facility] Administration Atorvastatin Calcium 10 mg 05/12/19 21:00 05/12/19 20:53 Lipitor PO 10 mg HS [facility] Administration Calcium Carbonate 1,000 mg 05/06/19 20:35 05/07/19 08:09 Tums PO 1,000 mg PRN PRN Administration HEARTBURN/INDIGESTION Carvedilol 3.125 mg 05/08/19 08:00 05/13/19 08:48 Coreg PO 3.125 mg BID-WM [facility] Administration Citalopram Hydrobromide 40 mg 05/06/19 09:00 05/13/19 08:49 Celexa PO 40 mg DAILY [facility] Administration Doxycycline Hyclate 100 mg 05/07/19 21:00 05/13/19 08:49 Vibramycin PO 100 mg BID [facility] Administration Ceftriaxone Sodium 2 gm/ 100 mls @ 200 mls/hr 05/06/19 20:00 05/12/19 20:43 Sodium Chloride IVPB 100 mls Q24HR [facility] Administration Insulin Human Regular 0 units 05/05/19 19:35 05/12/19 13:13 Humulin R SC 4 unit .MODERATE SLIDING SC PRN Administration MODERATE SLIDING SCALE Protocol Insulin Human Regular 0 units 05/11/19 20:37 05/12/19 20:57 Humulin R SC 2 unit .BEDTIME SLIDING SC PRN Administration Bedtime Correctional Scale Lisinopril 5 mg 05/07/19 21:00 05/13/19 08:49 Zestril PO 5 mg BID [facility] Administration Metformin HCl 1,000 mg 05/12/19 21:00 05/13/19 08:50 Glucophage PO 1,000 mg BID [facility] Administration Nicotine 14 mg 05/12/19 16:20 05/12/19 17:33 Nicoderm Patch TD 14 mg DAILYPRN PRN Administration Smoking Cessation Pantoprazole Sodium 40 mg 05/09/19 21:00 05/13/19 08:50 Protonix PO 40 mg BID [facility] Administration Temazepam 15 mg 05/09/19 19:45 05/12/19 23:28 Restoril PO 15 mg HSPRN PRN Administration Insomnia Ticagrelor 90 mg 05/07/19 21:00 05/13/19 08:50 Brilinta PO 90 mg BID [facility] Administration - Exam General Appearance: NAD, awake alert ENT: moist mucosa Heart: RRR, no murmur, no gallops, no rubs Respiratory: normal chest expansion, no tachypnea Respiratory - other findings: coarse breath sounds bilaterally, decent air movement Gastrointestinal: soft, non-tender, non-distended, normal bowel sounds Musculoskeletal: normal tone, normal strength Psychiatric: normal affect, normal behavior, A&O x 3 Hosp A/P (1) STEMI (ST elevation myocardial infarction) Status: Acute (2) Acute and chronic respiratory failure with hypoxia Code(s): J96.21 - ACUTE AND CHRONIC RESPIRATORY FAILURE WITH HYPOXIA Status: Acute (3) Acute congestive heart failure Code(s): I50.9 - HEART FAILURE, UNSPECIFIED Status: Acute Qualifiers: Heart failure type: systolic Qualified Code(s): I50.21 - Acute systolic ( congestive) heart failure (4) COPD with exacerbation Code(s): J44.1 - CHRONIC OBSTRUCTIVE PULMONARY DISEASE W (ACUTE) EXACERBATION Status: Acute (5) Diabetes mellitus type 2, insulin dependent Code(s): E11.9 - TYPE 2 DIABETES MELLITUS WITHOUT COMPLICATIONS; Z79.4 - SNF (CURRENT) USE OF INSULIN Status: Chronic (6) Hematuria Code(s): R31.9 - HEMATURIA, UNSPECIFIED Status: Acute (7) Tobacco abuse Code(s): Z72.0 - TOBACCO USE Status: Chronic - Plan Awaiting Heme/Onc consult, can be done as an outpatient. Still with some intermittent hematuria, but voiding well with pfeiffer out. Can f/ u with urology outpatient. Lifevest fitting prior to discharge. Can go later today.
[2019-05-13] MEDS: Insulin Regular 300 UNITS/3 ML VIAL SC PRN (12:02)
[2019-05-13] MEDS ORDERED: HYDROcodone/Acetaminophen 10/325 mg Tablet PO PRN (12:03)
[2019-05-13 16:46] VITALS: BP 141/80; TEMP 98
--- NOTE | 2019-05-14 21:42 | DIS ---
DATE OF ADMISSION: 05/05/2019 DATE OF DISCHARGE: 05/13/2019 PRIMARY CARE PHYSICIAN: [facility]. REASON FOR ADMISSION: Pneumothorax requiring intubation and acute hypoxic respiratory failure. DIAGNOSES AT DISCHARGE: 1. ST-elevation myocardial infarction. 2. Vbjay-zq-stkhhsa respiratory failure with hypoxia, resolved. 3. Acute systolic congestive heart failure with ejection fraction of 20% to 25% and 1/3 diastolic dysfunction. 4. Pneumothorax secondary to needle biopsy of lung mass. 5. Diabetes mellitus type 2, insulin dependent. 6. Hematuria secondary to Hansen and blood thinners, improving. 7. Tobacco abuse. 8. Squamous-cell carcinoma of the lung, status post transcutaneous biopsy. 9. Hematemesis from Ena-Juárez tear, resolved. PROCEDURES: 1. CT guided lung biopsy of cavitary right upper lobe mass, complicated by pneumothorax. 2. A 9-Macedonian thoracostomy tube placement. 3. Cardiac catheterization showing 100% mid LAD occlusion with successful PCI and bare-metal stent placement, and RCA 100% occlusion filling distally via collaterals, and left circumflex OM stenosis of 50%. 4. Echocardiogram showing ejection fraction of 20% to 25% with 1/3 diastolic dysfunction. CONSULTATIONS: 1. Cardiology, Dr. Diaz. 2. Pulmonology, Dr. Schulz. 3. Urology, Dr. Florez. SUMMARY OF HOSPITAL COURSE: This is a 64-year-old man with a history of severe COPD, chronic systolic and diastolic congestive heart failure, and pulmonary cavitary lesion, who presented after outpatient lung biopsy. Biopsy was done with resulting pneumothorax and hypoxic response, O2 sat of 60% for 4 to 5 minutes during transport. He had a chest tube placed. He was found to have inferior ST-elevation myocardial infarction. Dr. Diaz was consulted. He did immediate laboratory technical specialist with PCI and stent placement as above. He did go into VFib prior to the cath and had rounds of epinephrine and amiodarone and CPR with return of spontaneous circulation, then he went for the catheterization. Dr. Schulz was consulted and managed his pulmonary status and eventually was able to remove his chest tube. The patient did have a Hansen placed during hospitalization and had some hematuria from that, was consulted and recommended irrigation should he start bleeding significantly; however, he never did bleed significantly. He did occasionally have to have some clots lavaged out and eventually his Hansen was able to be discontinued. He was having just a few little clots when he urinated that were not obstructing his urinary stream and having a stable H and H at time of discharge. The patient slowly improved during his hospitalization. His medications were adjusted. His biopsy did come back positive for non-small cell carcinoma consistent with squamous-cell carcinoma of the lung. His echocardiogram after the UT did show significant drop in his ejection fraction and so the patient is being fitted for a LifeVest. He has been cleared for discharge to home by Pulmonology and Cardiology after the LifeVest. He is pending a consult from Heme/Oncology. However, this can be done as outpatient, so today we are discharging him home after the LifeVest is placed. DISCHARGE MANAGEMENT: Discharged home. ACTIVITY: As tolerated. DIET: Diabetic healthy heart diet. FOLLOWUP: Follow up with Cardiac Rehab in [place] with Dr. Marcial in 3 to 4 weeks, with [facility] group on the , and the patient is to call Dr. Walker' office for an appointment on Wednesday to follow up on might it be a lung cancer. DISCHARGE MEDICATIONS: 1. Amiodarone 200 mg twice a day, 60 tablets dispensed. 2. Lisinopril 5 mg twice a day, 60 tablets dispensed. 3. Protonix 40 mg twice a day, 60 tablets dispensed. 4. Brilinta 90 mg twice a day, 60 tablets dispensed. 5. Hydrocodone/acetaminophen 10/325 one to two tablets every 6 hours as needed for pain, 30 tablets dispensed. 6. Continue aspirin 81 mg daily. 7. Citalopram 40 mg daily. 8. Metformin 1000 mg twice a day, 60 tablets dispensed. 9. Albuterol inhaler as needed. 10. Carvedilol 3.125 mg twice a day. 11. Furosemide 40 mg daily. 12. Glipizide 10 mg twice a day. 13. Lyrica 75 mg twice a day. 14. Simvastatin 20 mg at night. TIME SPENT: Arranging the details of this discharge took 35 minutes. Job ID: [id number]
== END 2019-05-13 19:15 | disposition home or self-care (01) | DRG 248 ==
LOC: ERS 10:38 → CCL 13:27 → CCU 13:28 → 2NO 05-11 15:35
PROVIDERS: ADMIT Internal Medicine; ATTEND Family Medicine
PROC: 02703DZ Dilation of Coronary Artery, One Artery with Intraluminal Device, Percutaneous Approach (ICD-10-PCS; principal; 2019-05-05)
PROC: 4A023N7 Measurement of Cardiac Sampling and Pressure, Left Heart, Percutaneous Approach (ICD-10-PCS; 2019-05-05)
PROC: B2111ZZ Fluoroscopy of Multiple Coronary Arteries using Low Osmolar Contrast (ICD-10-PCS; 2019-05-05)
PROC: 3E0 Administration, Physiological Systems and Anatomical Regions, Introduction (ICD-10-PCS; 2019-05-05)
PROC: 5A1935Z Respiratory Ventilation, Less than 24 Consecutive Hours (ICD-10-PCS; 2019-05-05)
PROC: 5A12012 Performance of Cardiac Output, Single, Manual (ICD-10-PCS; 2019-05-05)
PROC: 0BH17EZ Insertion of Endotracheal Airway into Trachea, Via Natural or Artificial Opening (ICD-10-PCS; 2019-05-05)
PROC: 06HY33Z Insertion of Infusion Device into Lower Vein, Percutaneous Approach (ICD-10-PCS; 2019-05-05)
PROC: 5A2204Z Restoration of Cardiac Rhythm, Single (ICD-10-PCS; 2019-05-05)
PROC: 3E043XZ Introduction of Vasopressor into Central Vein, Percutaneous Approach (ICD-10-PCS; 2019-05-05)
DX: I21.19 ST elevation (STEMI) myocardial infarction involving other coronary artery of inferior wall (principal); J96.21 Acute and chronic respiratory failure with hypoxia; K22.6 Gastro-esophageal laceration-hemorrhage syndrome; I50.43 Acute on chronic combined systolic (congestive) and diastolic (congestive) heart failure; I46.2 Cardiac arrest due to underlying cardiac condition; I49.01 Ventricular fibrillation; J95.811 Postprocedural pneumothorax; J44.1 Chronic obstructive pulmonary disease with (acute) exacerbation; I47.2 Ventricular tachycardia; C34.11 Malignant neoplasm of upper lobe, right bronchus or lung; D68.32 Hemorrhagic disorder due to extrinsic circulating anticoagulants; T83.83XA Hemorrhage due to genitourinary prosthetic devices, implants and grafts, initial encounter; T79.7XXA Traumatic subcutaneous emphysema, initial encounter; Y84.8 Other medical procedures as the cause of abnormal reaction of the patient, or of later complication, without mention of misadventure at the time of the procedure; T45.515A Adverse effect of anticoagulants, initial encounter; Y84.6 Urinary catheterization as the cause of abnormal reaction of the patient, or of later complication, without mention of misadventure at the time of the procedure; G89.29 Other chronic pain; M54.9 Dorsalgia, unspecified; E11.51 Type 2 diabetes mellitus with diabetic peripheral angiopathy without gangrene; F17.200 Nicotine dependence, unspecified, uncomplicated; R31.0 Gross hematuria; X58.XXXA Exposure to other specified factors, initial encounter; Z79.84 Long term (current) use of oral hypoglycemic drugs; Z79.82 Long term (current) use of aspirin; Z95.5 Presence of coronary angioplasty implant and graft; Z79.52 Long term (current) use of systemic steroids
CPT/HCPCS: 31500; 32405; 36415; 36416; 36556; 36620; 51702; 71045; 74018; 77012; 80053; 81003; 81015; 82550; 82805; 83605; 84484; 85007; 85014; 85018; 85025; 85027; 85347; 85610; 85730; 86850; 86900; 86901; 87040; 88305; 88313; 88333; 88334; 88341; 88342; 90471; 90686; 92950; 93005; 93010; 93306; 93798; 94002; 94003; 94640; 94760; 96361; 96365; 96367; 96368; 96375; 96376; C1769; C1876; C1887; C9113; G0008; J0282; J0461; J0696; J1644; J1815; J1940; J2001; J2250; J2270; J2405; J2704; J2920; J3010; J3246; J3490; J7070; J7512; J7620; S0028

== ENCOUNTER 2019-05-18 13:45 | Observation (INO) | payer MEDICAID, OTHER ==
[2019-05-18 14:22] LABS: #Basophils 0.1 thou/uL (0.0-0.2); #Eosinphils 0.4 thou/uL (0.0-0.7); #Lymphocytes 1.7 thou/uL (1.20-3.40); #Monocytes 1.1 thou/uL (0.11-0.59); #Neutrophils 15.4 thou/uL (1.40-6.50); %Basophils 0.3 % (0.0-1.0); %Monocytes 5.9 % (0.0-10.0); %Neutrophils 82.8 % (42.0-75.0); Hemoglobin 11.8 g/dL (14.0-18.0); Mean Corpuscular HGB CONC 33.3 g/dL (32.0-36.0); Mean Corpuscular Hemoglobin 30.8 pg (27.0-31.0); Mean Corpuscular Volume 92.5 fL (78.0-98.0); Mean Platelet Volume 7.8 fL (7.4-10.4); Platelet Count 591 thou/uL (130-400); RBC Distribution Width 13.2 % (11.5-14.5); Red Blood Cell (RBC) Count 3.85 mill/uL (4.70-6.10); White Blood Cell (WBC) Count 18.6 thou/uL (4.8-10.8)
--- NOTE | 2019-05-18 14:47 | RAD ---
RADIOGRAPH CHEST 1 VIEW: DATE: 05/18/2019 TIME: 1:59 PM HISTORY: 64-year-old male with dyspnea. COMPARISON: 05/11/2019 FINDINGS: Subcutaneous emphysema in the chest wall bilaterally and supraclavicular neck have improved. No pneum othorax is identified. Cavitary lesion in right upper lobe again noted. No pulmonary edema or consolidation identified. Cardiac size near upper limits of normal. No mediastinal widening or midlin e shift. IMPRESSION: Interval improvement in subcutaneous emphysema.
[2019-05-18 14:48] LABS: ALT (SGPT) 36 U/L (8-55); AST (SGOT) 21 U/L (5-34); Albumin 3.4 g/dL (3.4-4.8); Alkaline Phosphatase 146 U/L (40-110); Anion Gap 12 mmol/L (10-20); BUN (Urea Nitrogen) 21 mg/dL (8.4-25.7); Bilirubin, Total 0.6 mg/dL (0.2-1.2); Calc. Creatinine Clearance 0 mL/min (70-130); Calcium 8.8 mg/dL (7.8-10.44); Carbon Dioxide 33 mmol/L (23-31); Chloride 91 mmol/L (98-107); Estimated GFR-MDRD Greater than 90; Globulin 3.1 g/dL (2.4-3.5); Glucose 274 mg/dL (80-115); Lipase 22 U/L (8-78); Potassium 4.3 mmol/L (3.5-5.1); Protein, Total 6.5 g/dL (5.8-8.1); Sodium 132 mmol/L (136-145)
--- NOTE | 2019-05-18 15:51 | CT ---
CT ANGIOGRAM CHEST WITH CONTRAST: Date: 05/18/2019 HISTORY: Chest pain. COMPARISON: Chest radiograph dated 05/18/2019. CT angiogram of chest dated 03/05/2019. FINDINGS: There is an embolism within the right upper lobe artery, axial image 64. This is a new finding. No ot her definite embolism is appreciated. Similar appearance of the cavitary mass right upper lobe. There is a small volume pneumomediastinum. Subcutaneous emphysema is slowly improving from the previous month's radiographs. Moderate right pleural effusion. Trace left effusion. Posterior segment left upper lobe pulmonary nod ule, axial image 41 measures 12 mm short axis, previously 10 mm. Remainder of the pulmonary nodules a ppear relatively similar. Moderate centrilobular paraseptal emphysema. Multiple bilateral rib fractures. Incomplete evaluation for abdominal aortic aneurysm. IMPRESSION: 1. Small segmental pulmonary embolism in the posterior segment right upper lobe pulmonary artery. 2. Slight interval size increase of left upper lobe posterior segment metastatic disease. 3. Similar to slightly enlarging right layering pleural effusion from February 2019. 4. Slowly improving subcutaneous emphysema. 5. Multiple left and right anterior rib fractures. Yancy Thomason notified of findings via telephone at 1536 hours. CODE CR. POS: [facility]
[2019-05-18 17:36] LABS: Critical Call Chem Troponin I RESULT DECREASING; Troponin I 1.133 ng/mL (< 0.028)
[2019-05-18] MEDS ORDERED: Enoxaparin Sodium 100 MG/ML SYRINGE ONE ×2 (17:36→17:37)
[2019-05-18] MEDS ORDERED: Furosemide 40 MG/4 ML VIAL ONE (17:36)
[2019-05-18 19:37] VITALS: BMI 29.0
[2019-05-18] MEDS ORDERED: Dextrose 5% in Water 1,000 ML IV PRN (19:38)
[2019-05-18] MEDS ORDERED: HYDROcodone/Acetaminophen 5/325 mg Tablet PO PRN ×4 (19:38)
[2019-05-18] MEDS ORDERED: Ondansetron PF 4 MG/2 ML Vial IVP PRN ×2 (19:38)
[2019-05-18] MEDS ORDERED: Senokot S 8.6-50 MG TAB PO PRN (19:38)
[2019-05-18] MEDS ORDERED: Acetaminophen 325 MG TAB PO PRN (19:38)
[2019-05-18] MEDS ORDERED: PROVENTIL INHALER 6.7 G (200 INHALATIONS) INH PRN (19:38)
[2019-05-18] MEDS ORDERED: Dextrose 50% Abboject 50 ML SYRINGE SLOW IVP PRN (19:38)
[2019-05-18] MEDS ORDERED: Ondansetron ODT 4 MG TAB SL PRN (19:38)
[2019-05-18] MEDS ORDERED: Guaifenesin DM 100-10/5 ML UDCUP PO PRN (19:38)
[2019-05-18] MEDS ORDERED: Ondansetron ODT 4 MG TAB PO PRN (19:38)
[2019-05-18] MEDS ORDERED: HumaLOG 300 UNITS/3 ML VIAL SC PRN ×2 (19:38)
--- NOTE | 2019-05-18 20:04 | HP ---
PRIMARY CARE PHYSICIAN: [facility] in [place]. CHIEF COMPLAINT: Shortness of breath. HISTORY OF PRESENT ILLNESS: This is a 64-year-old white male, recently in the hospital for iatrogenic pneumothorax requiring intubation and ST-elevation myocardial infarction. The patient had a new diagnosis of squamous cell carcinoma of the lung for which he was getting a transcutaneous biopsy that lead to his last hospitalization. After his ST-elevation NC, he was diagnosed with acute systolic congestive heart failure, ejection fraction of 20% to 25%. The patient was improved over his hospitalization and was discharged to follow up with Oncology on Wednesday ; however, after discharge, the patient reports that he found his insurance changed in the middle of hospitalization, so he could not longer use [facility] doctors and so he has been trying to get his insurance switched back and has not followed up with oncologist. The patient reports that he has been having chest pain ever since the hospitalization, was having in the hospital from the chest tube he had still on the right side associated with deep breaths, but was breathing fine. He did have a fall today after his discharge when he was walking up the steps, but just fell onto his bottom and his low back, which he does have some chronic problems, but did not suffer any significant injury that time. He was doing okay breathing zaragoza until yesterday, he started getting short of breath. Chest pain has not changed as the same pain he had the entire hospitalization here last time, but had significant shortness of breath starting yesterday and then today, so he came into the emergency room. In the ER, he was found to be saturating well on room air and not in significant distress at rest. They did do a CT angio in the emergency room, which was positive for a small segmental pulmonary embolism in the posterior segment of the right upper lobe pulmonary artery. Also had some slightly increased size of the left upper lobe metastatic disease and a slight enlargement of his right layering pleural effusion. He had stable rib fractures from his last hospitalization when he was coated. The patient had some hematuria at his last hospitalization as well, which had resolved completely after a day or two at home. He did report that he has had some increased swelling of his lower extremities for the last 2 to 3 days, it got worse and then it got better today, still a little bit swollen. He has not been sticking with his fluid restriction, but has been taking his medicines as prescribed. REVIEW OF SYSTEMS: CONSTITUTIONAL: No fevers. No chills. EYES: No double vision. He does have some chronic blurred vision that has been getting worse recently. ENT: No congestion, drainage, or sore throat. CARDIOVASCULAR: See HPI. No palpitations or racing heart. No left-sided chest pain. PULMONARY: See HPI. Minimal cough, nonproductive. No current chest tightness. GI: No abdominal pain. No nausea or vomiting. No diarrhea or constipation. GENITOURINARY: No dysuria or hematuria. MUSCULOSKELETAL: He has some chronic low back pain and right chest pain. SKIN: No rashes or lesions noted. NEUROLOGIC: No numbness, tingling, or focal weakness. PAST MEDICAL HISTORY: 1. Recently diagnosed systolic congestive heart failure with ejection fraction of 20% to 25%, 1/3 diastolic dysfunction. 2. Coronary artery disease with recent ST-elevation myocardial infarction. 3. Diabetes mellitus type 2, on oral hypoglycemics. 4. Squamous cell carcinoma of the lung. 5. Recent Ena-Juárez tear, resolved. 6. Chronic obstructive pulmonary disease. 7. Abdominal aortic aneurysm. 8. Hypertension. 9. Peripheral vascular disease with bilateral lower extremity stents placed. 10. Dyslipidemia. PAST SURGICAL HISTORY: 1. AAA repair in 2018. 2. CT guided biopsy of cavitary right upper lobe mass. 3. Cardiac catheterization with PCI and stent placement in the mid LAD. SOCIAL HISTORY: The patient smokes half pack of cigarettes per day. No alcohol or illicit drug use. He is and his would be his medical decision maker, her name is Hugo Em. He is a full code. FAMILY HISTORY: Mother at the age of 81 of unknown cancer and colostomy and father at the age of 71. He had mesothelioma and asbestos exposure. PHYSICAL EXAMINATION: VITAL SIGNS: Blood pressure 122/69, pulse 79, respirations 16, temperature 98.2 , and O2 saturations 93% on room air. GENERAL: This is a well-developed, well-nourished white male, in no acute distress. HEENT: Pupils are equal, round, and reactive to light. Oropharynx clear without lesions, erythema, or exudate. He does have poor dentition. NECK: Supple. No lymphadenopathy. No thyroid nodules or enlargement. HEART: Regular rate and rhythm. No murmurs, rubs, or gallops. LUNGS: Clear to auscultation bilaterally. No wheezes, crackles, or rhonchi. He does have tenderness to palpation of his right side of his chest anteriorly and posteriorly as he has previously. No external bruising visualized. The site of his right-sided chest tube on the anterior aspect is well healed. I did remove the dressing from its place. The patient does have palpable crepitus throughout his neck and anterior and posterior chest, actually improved from his hospitalization which was also noted on the CT scan. ABDOMEN: Soft, nontender to palpation. Normoactive bowel sounds. No hepatosplenomegaly or other masses. EXTREMITIES: No clubbing or cyanosis. He does have 1+ pitting edema in bilateral lower extremities up to the knee. SKIN: No rashes or lesions noted. NEUROLOGIC: Intact strength and sensation in all extremities. No facial droop. PSYCHIATRIC: Alert and oriented x3. Normal mood and affect. LABORATORY DATA: White blood cell count 18.6, which is stable from his previous hospitalization, thought to be secondary to his cancer, hemoglobin 11.8 which is also stable, hematocrit 35.6, platelet count elevated at 591 which is a new elevation. Complete metabolic panel is notable for sodium of 132 stable from his previous hospitalization, chloride of 91, bicarb of 33, glucose of 274, and alkaline phosphatase of 146. The rest is normal. Troponin was elevated at 1.2, which actually significantly down from his previous hospitalization at the most recent check. It has been trending down, the repeat was 1.1, which shows continued trending down. Brain natriuretic peptide is elevated beyond his last hospitalization of 2600, up from 1100. Creatine kinase is normal. Lactic acid is negative. IMAGING STUDIES: I did review the chest x-ray done in the emergency room along with the radiologist's report. It does show no recurrence of the pneumothorax with subcutaneous emphysema in the chest wall bilaterally supraclavicularly has improved. Cavitary lesion in the right upper lobe is unchanged. No pulmonary edema or consolidation identified. CT of the chest and thorax as per HPI. ASSESSMENT: 1. Small pulmonary embolism, possibly the source of his shortness of breath versus mild congestive heart failure exacerbation. The patient was given Lovenox dose in the emergency room. He is saturating well on room air and does not appear short of breath at rest and his vital signs are stable. So, he is a good candidate for switching to oral therapy. However, given his recent hospitalization and multiple medical problems and his mild volume overload this time we will observe him in the hospital overnight. We will start him on Eliquis tomorrow morning. We will watch for any evidence of return of his hematuria or other bleeding. We will also ambulate him tomorrow and see how his saturations run on room air while he is ambulating to see if he might benefit from home oxygen. 2. Acute on chronic systolic congestive heart failure. We have given him a dose of Lasix IV in the emergency room and will give him some more tomorrow morning. He will need to restrict his fluid intake, otherwise he will continue worsening of his congestive heart failure. We will get strict I's and O's, and will fluid restrict him in the hospital. We will reassess in the morning. He does not appear to be in a significant exacerbation at this time that would warrant inpatient admission, but we will reassess and check tomorrow. 3. Recent Hansen trauma with previous hematuria. This appears to have resolved. We will watch his urine does look for any bleeding with the blood thinners. 4. Recent Ena-Juárez tear. This has not been symptomatic for over a week now. We will watch for any evidence of bleeding with the blood thinners and we will continue his PPI. 5. Squamous cell cancer of the lung. The patient does need to follow up with Heme/Oncology outpatient. I have stressed to him the importance of following up even if he has to go to a doctor in a different area due to his insurance, but he gets his treatment started early. 6. Elevated troponin. This is secondary to his previous ST-elevation myocardial infarction. It is actually trending down well and no evidence of ischemia. 7. Chest pain secondary to rib fractures. This is stable. We will treat with [place] as needed while he is in the hospital. 8. Chronic obstructive pulmonary disease. We will give patient nebs as needed. I will give him albuterol as needed. We will continue his Spiriva. 9. Diabetes mellitus type 2. We will continue patient's glipizide. We will check fingerstick blood sugars q.a.c. and at bedtime with a light insulin sliding scale. 10. Code status. The patient is a full code. Should he be incapacitated, his would be his medical decision maker, her name is Hugo Em. Job ID: [id number] MTDD
[2019-05-18] MEDS: glipiZIDE 5 MG TAB PO SCH (20:42)
[2019-05-18] MEDS: metFORMIN 500 MG TAB PO SCH (20:42)
[2019-05-18] MEDS: TICAGRELOR 90 MG TABLET PO SCH (20:43)
[2019-05-18] MEDS: Pregabalin 75 MG CAP PO SCH (20:43)
[2019-05-18] MEDS: Lisinopril 5 MG TAB PO SCH (20:44)
[2019-05-18] MEDS: Amiodarone 200 MG TAB PO SCH (20:44)
[2019-05-18] MEDS: Carvedilol 3.125 MG TAB PO SCH (20:44)
[2019-05-18] MEDS ORDERED: Simvastatin 20 MG TAB PO SCH (21:00)
[2019-05-19] MEDS: Ipratropium Bromide 2.5 ml Neb NEB SCH ×2 (00:15→07:55)
[2019-05-19 05:08] LABS: #Basophils 0.1 thou/uL (0.0-0.2); #Eosinphils 0.3 thou/uL (0.0-0.7); #Monocytes 1.1 thou/uL (0.11-0.59); #Neutrophils 11.5 thou/uL (1.40-6.50); %Basophils 0.4 % (0.0-1.0); %Eosinophils 2.3 % (0.0-10.0); %Lymphocytes 13.2 % (21.0-51.0); %Monocytes 7.1 % (0.0-10.0); %Neutrophils 76.9 % (42.0-75.0); Hemoglobin 10.9 g/dL (14.0-18.0); Mean Corpuscular HGB CONC 33.5 g/dL (32.0-36.0); Mean Corpuscular Hemoglobin 31.3 pg (27.0-31.0); Mean Corpuscular Volume 93.3 fL (78.0-98.0); Mean Platelet Volume 7.9 fL (7.4-10.4); Platelet Count 502 thou/uL (130-400); RBC Distribution Width 13.5 % (11.5-14.5); Red Blood Cell (RBC) Count 3.47 mill/uL (4.70-6.10); White Blood Cell (WBC) Count 14.9 thou/uL (4.8-10.8)
[2019-05-19 05:27] LABS: Anion Gap 14 mmol/L (10-20); BUN (Urea Nitrogen) 20 mg/dL (8.4-25.7); Calc. Creatinine Clearance 122 mL/min (70-130); Calcium 8.7 mg/dL (7.8-10.44); Carbon Dioxide 29 mmol/L (23-31); Chloride 92 mmol/L (98-107); Estimated GFR-MDRD Greater than 90; Glucose 209 mg/dL (80-115); Potassium 3.9 mmol/L (3.5-5.1); Sodium 131 mmol/L (136-145)
[2019-05-19] MEDS ORDERED: Furosemide 40 MG/4 ML VIAL SLOW IVP SCH (06:00)
[2019-05-19 08:35] VITALS: BP 126/64; TEMP 97.1
[2019-05-19] MEDS ORDERED: Citalopram 20 MG TAB PO SCH (09:00)
[2019-05-19] MEDS ORDERED: Apixaban 5 MG TAB PO SCH (09:00)
[2019-05-19] MEDS ORDERED: Aspirin Chewable 81 MG TAB PO SCH (09:00)
[2019-05-19] MEDS: Lisinopril 5 MG TAB PO SCH (10:18)
[2019-05-19] MEDS: Pregabalin 75 MG CAP PO SCH (10:18)
[2019-05-19] MEDS: glipiZIDE 5 MG TAB PO SCH (10:18)
[2019-05-19] MEDS: metFORMIN 500 MG TAB PO SCH (10:18)
[2019-05-19] MEDS: TICAGRELOR 90 MG TABLET PO SCH (10:19)
[2019-05-19] MEDS: Amiodarone 200 MG TAB PO SCH (10:19)
[2019-05-19] MEDS: Carvedilol 3.125 MG TAB PO SCH (10:20)
--- NOTE | 2019-05-19 15:07 | DIS ---
DATE OF ADMISSION: 05/18/2019 DATE OF DISCHARGE: 05/19/2019 PRIMARY CARE PROVIDER: [facility]. DISCHARGE DIAGNOSES: 1. Acute pulmonary embolism. 2. Acute on chronic systolic congestive heart failure, [place] Heart Association class III. CONDITION OF PATIENT ON THE DAY OF DISCHARGE: Stable. I assessed Mr. Em on the day of discharge. He denies any chest pain or shortness of breath. Vital signs are stable. S1 and S2 are heard, regular. Lungs are clear to auscultation bilaterally. DISCHARGE MEDICATIONS: He has been started on apixaban 10 mg 2 times a day for 1 week followed by 5 mg 2 times a day. Otherwise, no change was made to his pre-admission home medications. ACTIVITY: As tolerated. DIET: Heart healthy, low-sodium, and diabetic. HOSPITAL COURSE: Mr. Em is a pleasant 64-year-old gentleman, who was admitted to [facility] on May 18, 2019 for acute pulmonary embolism. Please refer to Dr. Guan's history and physical note dated May 18, 2019 for further details. He initially received Lovenox and was transitioned to apixaban on the day of discharge. He was also found to have an exacerbation of heart failure. He improved with intravenous Lasix. He is being discharged home on his home dose of oral Lasix. He has been advised to follow up with his oncologist within the next week. Many thanks for allowing me to participate in your patient's care. Please feel free to contact me with any questions or concerns. Please note that the patient had bare metal stent placed during this last hospitalization. He will need to be on aspirin indefinitely and on aspirin and Plavix for one month from the date of procedure. Post-acute care followup: With primary care provider in one weeks time, with Cardiology, Dr. Marcial on June 05, 2019 at 9:30 a.m. Job ID: [id number]
--- NOTE | 2019-05-20 14:33 | EKG ---
Test Reason : Blood Pressure : / mmHG Vent. Rate : 074 BPM Atrial Rate : 074 BPM P-R Int : 208 ms QRS Dur : 196 ms QT Int : 454 ms P-R-T Axes : 067 078 -56 degrees QTc Int : 503 ms Normal sinus rhythm Possible Left atrial enlargement Non-specific intra-ventricular conduction block Inferior infarct , age undetermined Cannot rule out Anterior infarct , age undetermined Abnormal ECG Confirmed by ERUM HANDLEY D.O. ([id number]), desk editor JEFFY MILLIGAN ([id number]) on 05/20/2019 2:33:23 PM Referred By: Confirmed By:ERUM HANDLEY D.O.
== END 2019-05-19 11:27 | disposition home or self-care (01) ==
LOC: ERS 13:45 → 2SW 16:47
PROVIDERS: ADMIT Emergency Medicine; ATTEND Emergency Medicine
DX: I26.99 Other pulmonary embolism without acute cor pulmonale (principal); I11.0 Hypertensive heart disease with heart failure; I50.23 Acute on chronic systolic (congestive) heart failure; I25.2 Old myocardial infarction; C34.90 Malignant neoplasm of unspecified part of unspecified bronchus or lung; I25.10 Atherosclerotic heart disease of native coronary artery without angina pectoris; E11.9 Type 2 diabetes mellitus without complications; J44.9 Chronic obstructive pulmonary disease, unspecified; E78.5 Hyperlipidemia, unspecified; S22.43XA Multiple fractures of ribs, bilateral, initial encounter for closed fracture; F17.210 Nicotine dependence, cigarettes, uncomplicated; Z79.02 Long term (current) use of antithrombotics/antiplatelets; Z79.82 Long term (current) use of aspirin; Z79.84 Long term (current) use of oral hypoglycemic drugs; Z79.899 Other long term (current) drug therapy
CPT/HCPCS: 36415; 36416; 71045; 71275; 80048; 80053; 82550; 82553; 83605; 83690; 83880; 84484; 85025; 87040; 93005; 94640; 96372; 96374; 96376; G0378; J1650; J1940

== ENCOUNTER 2019-06-09 03:22 | Inpatient (IN) | payer MEDICAID, OTHER ==
[2019-06-09] MEDS ORDERED: Furosemide 40 MG/4 ML VIAL ONE (03:44)
[2019-06-09 04:16] LABS: Anion Gap 18 mmol/L (10-20); BUN (Urea Nitrogen) 30 mg/dL (8.4-25.7); Calc. Creatinine Clearance 0 mL/min (70-130); Calcium 8.7 mg/dL (7.8-10.44); Carbon Dioxide 25 mmol/L (23-31); Chloride 80 mmol/L (98-107); Estimated GFR-MDRD 65; Glucose 194 mg/dL (80-115); Potassium 5.6 mmol/L (3.5-5.1)
[2019-06-09 04:29] LABS: Sodium 117 mmol/L (136-145)
[2019-06-09 04:57] LABS: CKMB 8.2 ng/mL (0-6.6)
--- NOTE | 2019-06-09 05:20 | HP ---
CHIEF COMPLAINT: Shortness of breath. HISTORY OF PRESENT ILLNESS: Mr. Em is a 64-year-old male with past medical history of congestive heart failure, COPD, diabetes, myocardial infarction, cardiac arrest, among others, presents from an outside emergency room because of congestive heart failure exacerbation, altered mental status, severe electrolyte disturbances. The workup in the outside facility, the patient had a BNP of 14,000, , sodium 115. The patient appears fluid overloaded with increased work of breathing with bilateral crackles, wheezing, and severe pedal edema. The patient does not respond or follow any commands. The ED physician discussed the case with the patient's , who expressed that the patient did want to be intubated and/or CPR to be performed. ED physician ordered IV Lasix because the patient appears to be fluid overloaded. The patient is being admitted to the hospital for further management. PAST MEDICAL HISTORY: 1. Chronic systolic heart failure. 2. Severe COPD. 3. Chronic hypoxic respiratory failure. 4. Pulmonary cavities and nodules. 5. Abdominal aortic aneurysm. 6. Hypertension. 7. Diabetes mellitus, type 2. 8. Cardiac arrest. 9. Pulmonary embolus. PAST SURGICAL HISTORY: Reviewed and not pertinent. FAMILY HISTORY: Reviewed and noncontributory. HOME MEDICATIONS: Please see home medication reconciliation form for updated medications. ALLERGIES: NO KNOWN ALLERGIES. REVIEW OF SYSTEMS: Unable to obtain. The patient is unresponsive. PHYSICAL EXAMINATION: GENERAL: The patient is in respiratory distress, unresponsive. VITAL SIGNS: Temperature is 96.2, blood pressure 108/77, pulse is 50, respiratory rate is 22, and O2 saturation is 100% on 4 L/minute nasal cannula. HEAD AND NECK: Normocephalic and atraumatic. Neck is supple. JVD is elevated. CHEST: Coarse bilateral breath sounds. HEART: S1 and S2. Regular. ABDOMEN: Soft. Bowel sounds present. NEUROLOGIC: Unresponsive. Moving extremities. PSYCHIATRIC: Unable to assess. EXTREMITIES: 4+ edema. No clubbing. No cyanosis. LABORATORY DATA: As mentioned above in history of present illness. BUN is 29, creatinine 0.8, and sodium in the outside facility was 115. ASSESSMENT: 1. Acute on chronic congestive heart failure. 2. Acute encephalopathy, metabolic. 3. Hyponatremia, hypervolemic. 4. History of pulmonary embolism. 5. History of cardiac arrest. 6. Chronic obstructive pulmonary disease. 7. Diabetes mellitus, type 2. PLAN: 1. The patient will be admitted to [facility]. 2. The patient appears to be . The patient was given one dose of Lasix in the ED, reassess. 3. Oxygen to keep saturation more than 92%. 4. Recheck electrolytes, follow the results. 5. The DNR status, ED physician discussed the case with the patient's in detail, who expressed that the patient does not want to be intubated or resuscitated. 6. Consider palliative measures in a.m. and hospice consultation. 7. Reconcile home medications. 8. DVT prophylaxis appropriate. 9. Prognosis is poor. 10. Expected length of stay, 2 midnights or more. Job ID: [id number]
[2019-06-09 06:04] VITALS: BP 91/59
[2019-06-09 07:39] LABS: Troponin I 0.145 ng/mL (< 0.028)
--- NOTE | 2019-06-09 07:46 | RAD ---
SINGLE VIEW OF THE CHEST: COMPARISON: 05/18/2019. HISTORY: CHF and altered mental status. Dyspnea. FINDINGS: A single view of the chest shows a cardiomediastinal silhouette which is upper limits of normal in si ze. There may be a developing infiltrate in the right lower lobe. No pleural effusion is seen. IMPRESSION: Possible early right lower lobe infiltrate. POS: [facility]
[2019-06-09] MEDS ORDERED: Furosemide 40 MG/4 ML VIAL SLOW IVP SCH ×2 (09:45→16:00)
--- NOTE | 2019-06-09 09:47 | PDOC.EVN ---
Event Note - Event Note Event Note: Patient is alert and following commands. Reports chest congestion, no chest pain. Mild SOB. Reports compliance with meds at home. Knows he is in the hospital Vitals: normal Gen: alert, awake, oriented times three CV: RRR, no murmurs, rubs, gallops Lungs: bilateral crackles Abdomen: +BS, soft, nontender, nondistended Extremities: 3+ pitting edema with extensive blister on left foot CXR: right lower lobe infiltrate Hypervolemic hyponatremia Elevated troponin Acute systolic CHF Hyperkalemia - likely from fluid retention - patient is given 40 mg IV lasix. Will repeat BMP at noon. trend troponin until peaks - check ECHO, last ECHO showed EF 20-25%. Consider card consult if ECHO abnormal - nephrology is following the patient Acute hypoxic respiratory failure secondary to acute systolic heart failure vs pneumonia vs lung cancer - check CBC - afebrile, hold antibiotics unless significant leukocytosis - continue IV lasix as mentioned above History of lung cancer - last PET scan showed RUL and KASSIDY hypermetabolic activity possible neoplastic process - obtain outpatient records with regards to treatment
--- NOTE | 2019-06-09 10:15 | CON ---
DATE OF CONSULTATION: HISTORY OF PRESENT ILLNESS: Mr. Em is a 64-year-old white male, who was admitted for shortness of breath. Of interest, this patient has underlying CHF, COPD, diabetes mellitus, and coronary artery disease. We are now being consulted for his hyponatremia. Of interest, this patient at one time was said to have history of biopsy-proven squamous cell carcinoma of the lung. REVIEW OF SYSTEMS: Not obtainable since the patient is lethargic and in mild respiratory distress. MEDICATIONS: Currently on DuoNeb q.6 hours p.r.n. PAST MEDICAL HISTORY: Includes the following biopsy-proven squamous cell carcinoma, COPD. He has history of CHF, coronary artery disease, hypertension, history of abdominal aortic aneurysm, type 2 diabetes mellitus, status post cardiac arrest, status post pulmonary embolism chronic. PAST SURGICAL HISTORY: Status post repair of abdominal aortic aneurysm, status post lung biopsy-transcutaneous, status post percutaneous stent placement of the bilateral lower extremities, status post thoracostomy chest tube placement, status post cardiac cath with coronary stent placement. SOCIAL HISTORY: The patient is from the [facility]. He continues to smoke. He has a history of [id number] of smoking. Denies any alcohol or IV drug use. ALLERGIES: NO KNOWN DRUG ALLERGIES. FAMILY HISTORY: Positive history of mesothelioma. TRAUMA: None. IMMUNIZATION: Unknown. HOSPITALIZATIONS: Please see past medical history. PHYSICAL EXAMINATION: VITAL SIGNS: Blood pressure is 91/59, heart rate 45, respiratory rate 15, temperature 96.8, and pulse ox 100%. GENERAL: The patient is awake and lethargic, not in overt distress. SKIN: Decreased turgor. HEENT: Pinkish conjunctivae. Anicteric sclerae. NECK: No neck mass. No carotid bruits. No JVD. CHEST: No deformities. LUNGS: Clear breath sounds. HEART: Normal sinus rhythm. No murmur. No gallops. No rubs. ABDOMEN: Globular, soft, and nontender. No masses. EXTREMITIES: Positive for edema. LABORATORY DATA: Laboratories of June 09, 2019; sodium 117, potassium 5.6, chloride 80, carbon dioxide 25, BUN 30, creatinine 1.14, glucose 194, and calcium 8.7. Troponin I 0.145. ASSESSMENT AND PLAN: Hyponatremia - this is most likely multifactorial etiology. This patient has underlying history of lung cancer. In addition, he is noted to be in some degree of volume overload and may be also causing the hyponatremia. Possibility of dilutional hyponatremia remains with this patient. I would at least consider giving him Lasix to help with volume overload and help with hyponatremia. Unsure if he will tolerate this. We will try 40 mg IV Lasix as one time dose. We will also decide to do tolvaptan if the liver function is acceptable in this patient. We will order liver function test. For the moment, continue free water restriction. His overall prognosis remains poor. Job ID: [id number] [facility]
[2019-06-09 10:31] LABS: ALT (SGPT) 236 U/L (8-55); AST (SGOT) 155 U/L (5-34); Albumin 3.5 g/dL (3.4-4.8); Alkaline Phosphatase 126 U/L (40-110); Bilirubin, Direct 0.4 mg/dL (0.1-0.3); Bilirubin, Total 0.7 mg/dL (0.2-1.2); Protein, Total 5.9 g/dL (5.8-8.1)
[2019-06-09 10:34] LABS: Troponin I 0.166 ng/mL (< 0.028)
[2019-06-09 11:46] LABS: Bilirubin Negative (Negative); Blood, Urine 3+ (Negative); Clarity Turbid (Clear); Glucose, Urine (Dipstick) Normal (Negative); Leukocyte 75 Leu/uL (Negative); Nitrite Negative (Negative); Protein, Urine (Dipstick) 50 mg/dL (Neg-Trace); RBC/HPF Greater than 50 HPF (0-3); Squamous Epithelial 0-3 HPF (0-3); Urobilinogen Normal mg/dL (Less than 2); WBC/HPF 21-50 HPF (0-3)
--- NOTE | 2019-06-09 11:48 | ULT ---
Exam: Right upper quadrant ultrasound: HISTORY: Transaminitis COMPARISON: None FINDINGS: Liver: Mildly enlarged in craniocaudal dimensions measuring 18.7 cm. No focal hepatic lesion is seen. Gallbladder: No evidence of gallbladder calculi, gallbladder wall thickening, or pericholecystic flui d. Common bile duct: The common duct is normal in caliber measuring 0.5 cm in diameter. Pancreas: Completely obscured by shadowing from bowel gas and not evaluated on this exam. Right kidney: Right kidney demonstrates a normal sonographic appearance. The right kidney measures 1 2.1 cm in length. IVC: The visualized IVC demonstrates a normal sonographic appearance. A small right pleural effusion is present. IMPRESSION: 1. Mild hepatomegaly without focal hepatic lesion identified. 2. No gallbladder calculus is seen, and the common duct is normal in caliber. 3. Small right pleural effusion.
[2019-06-09 11:50] LABS: Bacteria/HPF Rare-Few HPF (None Seen); Renal Epithelial 0-3 HPF (None Seen); Transitional Epithelial 0-3 HPF (None Seen)
[2019-06-09 11:51] LABS: Mucous/LPF 1+ LPF (<2+)
[2019-06-09 12:18] LABS: Hemoglobin 11.5 g/dL (14.0-18.0); Mean Corpuscular HGB CONC 33.1 g/dL (32.0-36.0); Mean Corpuscular Hemoglobin 30.7 pg (27.0-31.0); Mean Platelet Volume 9.6 fL (7.4-10.4); Platelet Count 307 thou/uL (130-400); RBC Distribution Width 14.7 % (11.5-14.5); Red Blood Cell (RBC) Count 3.74 mill/uL (4.70-6.10); White Blood Cell (WBC) Count 14.7 thou/uL (4.8-10.8)
[2019-06-09 12:30] LABS: Anion Gap 15 mmol/L (10-20); BUN (Urea Nitrogen) 35 mg/dL (8.4-25.7); Calc. Creatinine Clearance 85 mL/min (70-130); Calcium 8.6 mg/dL (7.8-10.44); Carbon Dioxide 27 mmol/L (23-31); Chloride 80 mmol/L (98-107); Estimated GFR-MDRD 59; Glucose 153 mg/dL (80-115); Potassium 5.4 mmol/L (3.5-5.1)
[2019-06-09 12:49] LABS: Sodium 117 mmol/L (136-145)
[2019-06-09] MEDS: Lidocaine 5% Patch TD SCH (15:44)
[2019-06-09] MEDS ORDERED: HumaLOG 300 UNITS/3 ML VIAL SC PRN (16:21)
[2019-06-09 22:46] LABS: Anion Gap 13 mmol/L (10-20); BUN (Urea Nitrogen) 34 mg/dL (8.4-25.7); Calc. Creatinine Clearance 98 mL/min (70-130); Calcium 8.5 mg/dL (7.8-10.44); Carbon Dioxide 28 mmol/L (23-31); Chloride 82 mmol/L (98-107); Estimated GFR-MDRD 70; Glucose 111 mg/dL (80-115); Magnesium 1.8 mg/dL (1.6-2.6)
[2019-06-09 22:48] LABS: Sodium 118 mmol/L (136-145)
[2019-06-10 04:05] LABS: ALT (SGPT) 241 U/L (8-55); AST (SGOT) 111 U/L (5-34); Albumin 3.4 g/dL (3.4-4.8); Alkaline Phosphatase 120 U/L (40-110); Anion Gap 14 mmol/L (10-20); BUN (Urea Nitrogen) 32 mg/dL (8.4-25.7); Bilirubin, Total 0.6 mg/dL (0.2-1.2); Calc. Creatinine Clearance 115 mL/min (70-130); Calcium 8.7 mg/dL (7.8-10.44); Carbon Dioxide 29 mmol/L (23-31); Chloride 82 mmol/L (98-107); Estimated GFR-MDRD 84; Globulin 2.3 g/dL (2.4-3.5); Glucose 105 mg/dL (80-115); Potassium 4.8 mmol/L (3.5-5.1); Protein, Total 5.7 g/dL (5.8-8.1); Sodium 120 mmol/L (136-145)
[2019-06-10] MEDS: Lidocaine Patch Removal TOP SCH (04:10)
[2019-06-10] MEDS ORDERED: Morphine 2 MG/ML SYRINGE SLOW IVP SCH (04:45)
[2019-06-10] MEDS ORDERED: Furosemide 40 MG/4 ML VIAL SLOW IVP SCH (06:15)
--- NOTE | 2019-06-10 10:32 | PRG ---
DATE OF SERVICE: 06/10/2019 SUBJECTIVE: Mr. Em is a 64-year-old white male, who was initially seen by the Renal Service for his hyponatremia. The etiology was the possibility of a dilutional hyponatremia with combined SIADH. Our plan is to initially to diurese him to improve his volume overload and hopefully improve the serum sodium. Serum sodium is slightly improved from 117 to 120. Per nursing history, the patient is being considered for inpatient hospice. The patient has multiple comorbid problems. At this time, we will be holding off any hypertonic saline. No new complaints. The patient is noted to be slightly more awake. OBJECTIVE: VITAL SIGNS: Blood pressure 119/70, heart rate 86, respiratory rate 13, O2 saturation 98%. GENERAL: The patient is sleepy, arousable, comfortable. He is conversing. Not in distress. SKIN: Decreased turgor. HEENT: He has a pinkish conjunctivae. Anicteric sclerae. NECK: No neck mass. No carotid bruits. No JVD. CHEST: No deformities. LUNGS: Clear breath sounds. HEART: Normal sinus rhythm. No murmur. No gallops. No rubs. ABDOMEN: Globular, soft, and nontender. No masses. EXTREMITIES: Positive for edema. MEDICATIONS: Medications of June 10, 2019, were reviewed. LABORATORY DATA: Laboratories of June 10, 2019; sodium 120, potassium 4.8, chloride 92, carbon dioxide 29, BUN 32, creatinine 0.91. AST 111, ALT 241, alkaline phosphatase 120, albumin is 3.4. BNP is 2723. ASSESSMENT/PLAN: 1. Hyponatremia - slowly improving - consider dilutional hyponatremia. We will maintain patient on Lasix 40 mg IV q.12. We will increase as needed. Hold off any hypertonic saline for the moment. Continue free water restriction. 2. Lung CA/COPD/CHF-the patient being considered for hospice care. For the moment, agree with current management. Job ID: [id number] [facility]
[2019-06-10 12:53] LABS: Anion Gap 13 mmol/L (10-20); BUN (Urea Nitrogen) 29 mg/dL (8.4-25.7); Calc. Creatinine Clearance 126 mL/min (70-130); Calcium 8.5 mg/dL (7.8-10.44); Carbon Dioxide 31 mmol/L (23-31); Chloride 81 mmol/L (98-107); Estimated GFR-MDRD Greater than 90; Glucose 122 mg/dL (80-115); Potassium 4.5 mmol/L (3.5-5.1); Sodium 120 mmol/L (136-145)
[2019-06-10] MEDS: Furosemide 40 MG/4 ML VIAL SLOW IVP SCH (13:15)
[2019-06-10] MEDS: Lidocaine 5% Patch TD SCH (13:15)
[2019-06-10] MEDS: Nicotine 21 MG PATCH TOP SCH (13:15)
--- NOTE | 2019-06-10 18:51 | PDOC.HOSPP ---
- Subjective Encounter Date: 06/10/19 Encounter Time: 10:00 Subjective: Pt seen for followup re: CHF exacerbation. Sleepy but arousable, not speaking much, unable to complete ROS. - Objective Vital Signs & Weight: Vital Signs (12 hours) Temp Pulse Ox 06/10/19 15:05 98.2 F 06/10/19 11:08 98.6 F 06/10/19 07:28 98 06/10/19 07:25 98.2 F Weight Admit Weight 216 lb 6.4 oz Weight 215 lb 3.2 oz Most Recent Monitor Data Heart Rate from ECG 62 NIBP 123/65 NIBP BP-Mean 84 Respiration from ECG 23 SpO2 96 I&O: 06/09/19 06/10/19 06/11/19 06:59 06:59 06:59 Intake Total 50 Output Total 1250 Balance -1200 Result Diagrams: 06/09/19 12:05 06/10/19 12:17 Additional Labs: Accuchecks 06/10/19 06/10/19 06/10/19 17:11 16:41 10:54 POC Glucose 166 H 146 H 146 H 06/10/19 06/09/19 06:26 20:40 POC Glucose 119 H 121 H Labs and MARs reviewed by me Hospitalist ROS - Review of Systems ROS unobtainable: due to mental status - Medication Medications: Active Medications Generic Name Dose Route Start Last Admin Trade Name Freq PRN Reason Stop Dose Admin Furosemide 40 mg 06/10/19 14:00 06/10/19 13:15 Lasix SLOW IVP 40 mg 0600,1400 HARMAN Administration Lidocaine 1 patch 06/09/19 14:00 06/10/19 13:15 Lidoderm 5% Patch TD 1 patch Q24HR HARMAN Administration Miscellaneous Medication 1 each 06/10/19 02:00 06/10/19 04:10 Lidocaine Patch Removal TOP 1 each 0200 HARMAN Administration Nicotine 21 mg 06/10/19 13:00 06/10/19 13:15 Nicoderm Patch TOP 21 mg Q24HR HARMAN Administration Sodium Chloride 10 ml 06/09/19 09:00 06/10/19 09:42 Flush - Normal Saline IVF 10 ml Q12HR HARMAN Administration Sodium Chloride 10 ml 06/09/19 08:03 06/10/19 07:18 Flush - Normal Saline IVF 10 ml PRN PRN Administration Saline Flush - Exam General Appearance: ill appearing Eye: anicteric sclera ENT: moist mucosa Neck: supple Heart: RRR Respiratory - other findings: Beau crackles Gastrointestinal: soft, non-tender Extremities: no cyanosis Psychiatric: lethargic Hosp A/P (1) Acute on chronic systolic heart failure, NYHA class 3 Code(s): I50.23 - ACUTE ON CHRONIC SYSTOLIC (CONGESTIVE) HEART FAILURE Status : Acute (2) Hyponatremia Code(s): E87.1 - HYPO-OSMOLALITY AND HYPONATREMIA Status: Acute (3) COPD (chronic obstructive pulmonary disease) Status: Chronic (4) Diabetes mellitus type 2, insulin dependent Code(s): E11.9 - TYPE 2 DIABETES MELLITUS WITHOUT COMPLICATIONS; Z79.4 - POT FEEDER (CURRENT) USE OF INSULIN Status: Chronic (5) Hyperlipidemia Code(s): E78.5 - HYPERLIPIDEMIA, UNSPECIFIED Status: Chronic (6) Hypertension Code(s): I10 - ESSENTIAL (PRIMARY) HYPERTENSION Status: Chronic - Plan Continue IV furosemide. Pt's family wants hospice care. Pt reportedly unable to go to [facility] since they want Covid -ve x 2. Case management exploring alternatives including home with hospice care. Hyponatremia likely dilutional, sodium improved to 120. Blood sugars reasonably controlled.
[2019-06-10] MEDS: TICAGRELOR 90 MG TABLET PO SCH (20:53)
[2019-06-10] MEDS: Amiodarone 200 MG TAB PO SCH (20:53)
[2019-06-10] MEDS ORDERED: Melatonin 3 MG TAB PO SCH (23:59)
[2019-06-11] MEDS: Lidocaine Patch Removal TOP SCH (02:16)
[2019-06-11 06:22] LABS: Anion Gap 13 mmol/L (10-20); BUN (Urea Nitrogen) 22 mg/dL (8.4-25.7); Calc. Creatinine Clearance 154 mL/min (70-130); Calcium 8.5 mg/dL (7.8-10.44); Carbon Dioxide 30 mmol/L (23-31); Chloride 84 mmol/L (98-107); Estimated GFR-MDRD Greater than 90; Glucose 137 mg/dL (80-115); Potassium 4.4 mmol/L (3.5-5.1); Sodium 123 mmol/L (136-145)
[2019-06-11] MEDS: Furosemide 40 MG/4 ML VIAL SLOW IVP SCH ×2 (06:40→13:21)
[2019-06-11] MEDS: Amiodarone 200 MG TAB PO SCH ×2 (09:55→21:15)
[2019-06-11] MEDS: TICAGRELOR 90 MG TABLET PO SCH ×2 (09:57→21:15)
--- NOTE | 2019-06-11 11:11 | PRG ---
DATE OF SERVICE: 06/11/2019 SUBJECTIVE: Mr. Em is a 64-year-old white male with known multiple medical problems; CHF, coronary artery disease, lung cancer, COPD, and was seen by the Renal Service for his hyponatremia. This was felt secondary to a dilutional hyponatremia. He was started on Lasix. He has been diuresing adequately. He is more awake and has no new complaints. OBJECTIVE: VITAL SIGNS: Blood pressure is 136/85 with a heart rate of 66, temperature 97.4. GENERAL: Noted to be awake, supine, comfortable, not in distress. SKIN: Adequate turgor. HEENT: He has a pinkish conjunctivae. Anicteric sclerae. NECK: No neck mass. No carotid bruits. No JVD. CHEST: No deformities. LUNGS: Clear breath sounds. HEART: Normal sinus rhythm. No murmurs, no gallops, no rubs. ABDOMEN: Globular, soft, nontender. No masses. EXTREMITIES: Positive for trace edema. No deformities. MEDICATIONS: Medications of June 11, 2019, reviewed. LABORATORY DATA: Laboratories of June 11, 2019; sodium 123, potassium 4.4, chloride 84, carbon dioxide 30, BUN 22, creatinine 0.68, glucose 137, calcium 8.5. ASSESSMENT AND PLAN: Hyponatremia, secondary to presumed dilutional hyponatremia. Continue free water restriction. Continue furosemide 40 mg IV q.12h. No indication for any hypertonic saline at the present time. The patient's serum sodium is slowly improving. Please note this patient is being considered for hospice care. We will remit the workup for the hyponatremia for the moment. Overall, prognosis remains guarded. Recheck basic metabolic in a.m. Job ID: [id number]
[2019-06-11] MEDS: Nicotine 21 MG PATCH TOP SCH (13:21)
[2019-06-11] MEDS: Lidocaine 5% Patch TD SCH (14:37)
[2019-06-11] MEDS: HumaLOG 300 UNITS/3 ML VIAL SC PRN (17:02)
--- NOTE | 2019-06-11 21:37 | PDOC.HOSPP ---
- Subjective Encounter Date: 06/11/19 Encounter Time: 19:00 Subjective: Pt seen for followup re: CHF exacerbation. More alert today, answering questions. - Objective Vital Signs & Weight: Vital Signs (12 hours) Temp 06/11/19 19:22 97.4 F L 06/11/19 15:18 97.4 F L 06/11/19 11:36 97.7 F Weight Admit Weight 216 lb 6.4 oz Weight 206 lb 9.6 oz Most Recent Monitor Data Heart Rate from ECG 60 NIBP 117/71 NIBP BP-Mean 86 Respiration from ECG 17 SpO2 95 I&O: 06/10/19 06/11/19 06/12/19 06:59 06:59 06:59 Intake Total 50 250 1124 Output Total 1250 2220 3270 Balance -9035 -2719 -9054 Result Diagrams: 06/09/19 12:05 06/11/19 05:42 Additional Labs: Accuchecks 06/11/19 06/11/19 06/11/19 19:52 16:52 10:52 POC Glucose 192 H 213 H 162 H 06/11/19 05:44 POC Glucose 178 H Labs and MARs reviewed by me EKG Reviewed by me: Yes (Tele: NSR) Hospitalist ROS - Review of Systems Respiratory: reports: shortness of breath, SOB with excertion. denies: cough, dry, hemoptysis, pleuritic pain, sputum, wheezing Cardiovascular: reports: orthopnea, edema. denies: chest pain, palpitations, paroxysmal noc. dyspnea, light headedness - Medication Medications: Active Medications Generic Name Dose Route Start Last Admin Trade Name Freq PRN Reason Stop Dose Admin Amiodarone HCl 200 mg 06/10/19 21:00 06/11/19 21:15 Cordarone PO 200 mg BID HARMAN Administration Furosemide 40 mg 06/10/19 14:00 06/11/19 13:21 Lasix SLOW IVP 40 mg 0600,1400 HARMAN Administration Insulin Human Lispro 0 units 06/09/19 16:21 06/11/19 17:02 Humalog SC 3 unit .MILD SLIDING SCALE PRN Administration MILD SLIDING SCALE Protocol Lidocaine 1 patch 06/09/19 14:00 06/11/19 14:37 Lidoderm 5% Patch TD 1 patch Q24HR HARMAN Administration Miscellaneous Medication 1 each 06/10/19 02:00 06/11/19 02:16 Lidocaine Patch Removal TOP 1 each 0200 HARMAN Administration Nicotine 21 mg 06/10/19 13:00 06/11/19 13:21 Nicoderm Patch TOP 21 mg Q24HR HARMAN Administration Sodium Chloride 10 ml 06/09/19 09:00 06/11/19 21:15 Flush - Normal Saline IVF 10 ml Q12HR HARMAN Administration Sodium Chloride 10 ml 06/09/19 08:03 06/10/19 07:18 Flush - Normal Saline IVF 10 ml PRN PRN Administration Saline Flush Ticagrelor 90 mg 06/10/19 21:00 06/11/19 21:15 Brilinta PO 90 mg BID HARMAN Administration - Exam General Appearance: awake alert Eye: anicteric sclera ENT: moist mucosa Neck: supple Heart: RRR Respiratory - other findings: Beau crackles Extremities: 2+ LE edema Skin - other findings: Blisters beau feet Psychiatric: normal affect, normal behavior Hosp A/P (1) Acute on chronic systolic heart failure, NYHA class 3 Code(s): I50.23 - ACUTE ON CHRONIC SYSTOLIC (CONGESTIVE) HEART FAILURE Status : Acute (2) Hyponatremia Code(s): E87.1 - HYPO-OSMOLALITY AND HYPONATREMIA Status: Acute (3) COPD (chronic obstructive pulmonary disease) Status: Chronic (4) Diabetes mellitus type 2, insulin dependent Code(s): E11.9 - TYPE 2 DIABETES MELLITUS WITHOUT COMPLICATIONS; Z79.4 - JAIL (CURRENT) USE OF INSULIN Status: Chronic (5) Hyperlipidemia Code(s): E78.5 - HYPERLIPIDEMIA, UNSPECIFIED Status: Chronic (6) Hypertension Code(s): I10 - ESSENTIAL (PRIMARY) HYPERTENSION Status: Chronic - Plan Continue IV furosemide. Pt clinically improved today in terms of mentation. Pt's family wants hospice care. Pt reportedly unable to go to [facility] since they want negative Covid test x 2. Case management exploring alternatives. Hyponatremia likely dilutional, sodium improved to 123 today.
--- NOTE | 2019-06-11 21:53 | RAD ---
KUB: History: Evaluation for obstruction, abdominal pain. FINDINGS: The bowel gas pattern appears nonobstructed. A mild amount of stool is seen in the right colon. Aorto iliac stent is present. No renal calculi. IMPRESSION: No acute findings. POS: KLYE
[2019-06-12 03:06] LABS: Bacteria/HPF None Seen HPF (None Seen); Bilirubin Negative (Negative); Blood, Urine 1+ (Negative); Clarity Clear (Clear); Glucose, Urine (Dipstick) 200 mg/dL (Negative); Leukocyte Negative Leu/uL (Negative); Nitrite Negative (Negative); Protein, Urine (Dipstick) 10 mg/dL (Neg-Trace); Squamous Epithelial 0-3 HPF (0-3); Urobilinogen Normal mg/dL (Less than 2)
[2019-06-12 03:09] LABS: Urine Culture Reflex Yes Yes
[2019-06-12] MEDS: Lidocaine Patch Removal TOP SCH (03:16)
[2019-06-12 04:03] LABS: BUN (Urea Nitrogen) 15 mg/dL (8.4-25.7); Calc. Creatinine Clearance 150 mL/min (70-130); Calcium 9.1 mg/dL (7.8-10.44); Estimated GFR-MDRD Greater than 90; Glucose 140 mg/dL (80-115)
[2019-06-12 04:12] LABS: Anion Gap 14 mmol/L (10-20); Carbon Dioxide 37 mmol/L (23-31); Chloride 83 mmol/L (98-107); Potassium 4.5 mmol/L (3.5-5.1); Sodium 129 mmol/L (136-145)
[2019-06-12 04:14] LABS: Band 2 % (5-11); Hemoglobin 12.1 g/dL (14.0-18.0); Hypochromia SLIGHT = 6-15 cells (100X) (0-5/hpf); Lymphocytes 5 % (21-51); MDiff Complete? YES; Mean Corpuscular HGB CONC 31.8 g/dL (32.0-36.0); Mean Corpuscular Hemoglobin 30.2 pg (27.0-31.0); Mean Platelet Volume 9.3 fL (7.4-10.4); Monocytes 6 % (0-10); Neutrophil 87 % (42-75); Platelet Count 287 thou/uL (130-400); Platelet Morphology Comment Appears Adequate
[2019-06-12] MEDS: Furosemide 40 MG/4 ML VIAL SLOW IVP SCH ×2 (05:24→15:12)
--- NOTE | 2019-06-12 09:24 | PRG ---
DATE OF SERVICE: 06/12/2019 SUBJECTIVE: Mr. Em is a 64-year-old white male with known multiple medical problems - CHF, COPD, and coronary artery disease and was seen by the Renal Service for his hyponatremia. At that time, we felt that he may have a dilutional hyponatremia. He was started on IV Lasix with improvement of the serum sodium. No new complaints today. Mentation is much improved. Shortness of breath is about baseline. The patient is being considered for hospice. OBJECTIVE: VITAL SIGNS: Blood pressure 131/82, heart rate 68, respiratory rate 24, O2 saturation 94%, temperature 96.4. GENERAL: Awake, alert, comfortable, not in overt distress. SKIN: Adequate turgor. HEENT: Pinkish conjunctivae. Anicteric sclerae. NECK: No neck mass. No carotid bruits. No JVD. CHEST: No deformities. LUNGS: Decreased breath sounds. HEART: Normal sinus rhythm. No murmur. No gallops. No rubs. ABDOMEN: Globular, soft, nontender. No masses. EXTREMITIES: No edema. No deformities. MEDICATIONS: Medications of June 12, 2019, were reviewed. LABORATORY DATA: Laboratories of June 12, 2019: White count 11, hemoglobin 12.1. Sodium 129, potassium 4.5, chloride 83, carbon dioxide 37, BUN 15, creatinine 0.67, glucose 140, calcium 9.1. ASSESSMENT AND PLAN: 1. Hyponatremia - secondary to dilutional hyponatremia, slowly improving with diuresis. Generalized edema is actually also improving. 2. Lung cancer/chronic obstructive pulmonary disease/congestive heart failure - the patient is being considered for hospice. Continue supportive care. No changes with the current management. Continue free water restriction. Continue Lasix. No indication for hypertonic saline. Job ID: [id number]
[2019-06-12] MEDS: Amiodarone 200 MG TAB PO SCH ×2 (09:27→21:21)
[2019-06-12] MEDS: TICAGRELOR 90 MG TABLET PO SCH ×2 (09:28→21:21)
--- NOTE | 2019-06-12 11:05 | PDOC.HOSPP ---
- Subjective Encounter Date: 06/12/19 Encounter Time: 11:04 Subjective: Feeling better. Feels like he is breathing ok. - Objective Vital Signs & Weight: Vital Signs (12 hours) Temp Pulse Ox 06/12/19 08:00 95 06/12/19 07:22 96.4 F L 06/12/19 03:44 98.4 F 06/11/19 23:22 97.2 F L Weight Admit Weight 216 lb 6.4 oz Weight 202 lb 4.8 oz Most Recent Monitor Data Heart Rate from ECG 63 NIBP 117/71 NIBP BP-Mean 86 Respiration from ECG 29 SpO2 96 I&O: 06/11/19 06/12/19 06/13/19 06:59 06:59 06:59 Intake Total 250 1388 Output Total 2225 4095 Balance -1969 Result Diagrams: 06/12/19 03:11 06/12/19 03:11 Additional Labs: Accuchecks 06/12/19 06/12/19 06/11/19 10:43 05:43 19:52 POC Glucose 183 H 178 H 192 H 06/11/19 06/11/19 16:52 10:52 POC Glucose 213 H 162 H Hospitalist ROS - Medication Medications: Active Medications Generic Name Dose Route Start Last Admin Trade Name Freq PRN Reason Stop Dose Admin Amiodarone HCl 200 mg 06/10/19 21:00 06/12/19 09:27 Cordarone PO 200 mg BID HARMAN Administration Furosemide 40 mg 06/10/19 14:00 06/12/19 05:24 Lasix SLOW IVP 40 mg 0600,1400 HARMAN Administration Insulin Human Lispro 0 units 06/09/19 16:21 06/11/19 17:02 Humalog SC 3 unit .MILD SLIDING SCALE PRN Administration MILD SLIDING SCALE Protocol Lidocaine 1 patch 06/09/19 14:00 06/11/19 14:37 Lidoderm 5% Patch TD 1 patch Q24HR HARMAN Administration Miscellaneous Medication 1 each 06/10/19 02:00 06/12/19 03:16 Lidocaine Patch Removal TOP 1 each 0200 HARMAN Administration Nicotine 21 mg 06/10/19 13:00 06/11/19 13:21 Nicoderm Patch TOP 21 mg Q24HR HARMAN Administration Sodium Chloride 10 ml 06/09/19 09:00 06/12/19 09:28 Flush - Normal Saline IVF 10 ml Q12HR HARMAN Administration Sodium Chloride 10 ml 06/09/19 08:03 06/10/19 07:18 Flush - Normal Saline IVF 10 ml PRN PRN Administration Saline Flush Ticagrelor 90 mg 06/10/19 21:00 06/12/19 09:28 Brilinta PO 90 mg BID HARMAN Administration - Exam General Appearance: NAD, awake alert Heart: RRR, no murmur, no gallops, no rubs, normal peripheral pulses Respiratory: CTAB, no wheezes, no rales, no ronchi, normal chest expansion, no tachypnea, normal percussion Gastrointestinal: soft, non-tender, non-distended, normal bowel sounds, no palpable masses, no hepatomegaly, no splenomegaly, no bruit Extremities: 2+ LE edema Musculoskeletal: generalized weakness Psychiatric: normal affect, normal behavior, A&O x 3 Hosp A/P (1) Acute on chronic systolic heart failure, NYHA class 3 Code(s): I50.23 - ACUTE ON CHRONIC SYSTOLIC (CONGESTIVE) HEART FAILURE Status : Acute (2) Hyponatremia Code(s): E87.1 - HYPO-OSMOLALITY AND HYPONATREMIA Status: Acute (3) Acute and chronic respiratory failure with hypoxia Code(s): J96.21 - ACUTE AND CHRONIC RESPIRATORY FAILURE WITH HYPOXIA Status: Acute (4) Acute congestive heart failure Code(s): I50.9 - HEART FAILURE, UNSPECIFIED Status: Acute Qualifiers: Heart failure type: systolic Qualified Code(s): I50.21 - Acute systolic ( congestive) heart failure (5) COPD with exacerbation Code(s): J44.1 - CHRONIC OBSTRUCTIVE PULMONARY DISEASE W (ACUTE) EXACERBATION Status: Acute (6) Diabetes mellitus Code(s): E11.9 - TYPE 2 DIABETES MELLITUS WITHOUT COMPLICATIONS Status: Acute (7) CAD (coronary artery disease) Code(s): I25.10 - ATHSCL HEART DISEASE OF [place] CORONARY ARTERY W/O ANG PCTRS Status: Acute (8) Chronic pain Code(s): G89.29 - OTHER CHRONIC PAIN Status: Acute (9) Hypertension Code(s): I10 - ESSENTIAL (PRIMARY) HYPERTENSION Status: Chronic (10) PVD (peripheral vascular disease) Code(s): I73.9 - PERIPHERAL VASCULAR DISEASE, UNSPECIFIED Status: Chronic (11) Tobacco abuse Code(s): Z72.0 - TOBACCO USE Status: Chronic (12) Acute metabolic encephalopathy Code(s): G93.41 - METABOLIC ENCEPHALOPATHY Status: Acute - Plan Much improved sodium levels with diuresis. Continue diuresis. Nephrology following. May have component of SIADH due to lung cancer. Mental status is much improved. CHF improved. Still has some peripheral edema and bullous lesions on feet. Continue diuresis. Will add back his Coreg. Says he has had a stent. Says it was here by Dr. Diaz. Still on Brilenta. Will confirm and likely consult. Also typically on a low dose losartan. Probably no reason not to resume that as well if BP ok with Coreg. Denies hx of afib. Blood sugars good. BP stable.
--- NOTE | 2019-06-12 11:15 | PDOC.EVN ---
Event Note - Event Note Event Note: Reviewed record. Patient did have a bare metal stent placed in LAD by Dr. Diaz in April. Had VT arrest prior. That likely explains the amio. He did have a life-vest placed at the time of discharge. Will consult Dr. Diaz.
--- NOTE | 2019-06-12 11:18 | PDOC.FMACP ---
Advance Care Planning - Problem (1) Acute on chronic systolic heart failure, NYHA class 3 Status: Acute Code(s): I50.23 - ACUTE ON CHRONIC SYSTOLIC (CONGESTIVE) HEART FAILURE (2) Hyponatremia Status: Acute Code(s): E87.1 - HYPO-OSMOLALITY AND HYPONATREMIA (3) Acute and chronic respiratory failure with hypoxia Status: Acute Code(s): J96.21 - ACUTE AND CHRONIC RESPIRATORY FAILURE WITH HYPOXIA (4) Acute congestive heart failure Status: Acute Code(s): I50.9 - HEART FAILURE, UNSPECIFIED Qualifiers: Heart failure type: systolic Qualified Code(s): I50.21 - Acute systolic ( congestive) heart failure (5) COPD with exacerbation Status: Acute Code(s): J44.1 - CHRONIC OBSTRUCTIVE PULMONARY DISEASE W (ACUTE ) EXACERBATION (6) Diabetes mellitus Status: Acute Code(s): E11.9 - TYPE 2 DIABETES MELLITUS WITHOUT COMPLICATIONS (7) CAD (coronary artery disease) Status: Acute Code(s): I25.10 - ATHSCL HEART DISEASE OF [place] CORONARY ARTERY W/O ANG PCTRS (8) Chronic pain Status: Acute Code(s): G89.29 - OTHER CHRONIC PAIN (9) Hypertension Status: Chronic Code(s): I10 - ESSENTIAL (PRIMARY) HYPERTENSION (10) PVD (peripheral vascular disease) Status: Chronic Code(s): I73.9 - PERIPHERAL VASCULAR DISEASE, UNSPECIFIED (11) Tobacco abuse Status: Chronic Code(s): Z72.0 - TOBACCO USE (12) Acute metabolic encephalopathy Status: Acute Code(s): G93.41 - METABOLIC ENCEPHALOPATHY - Note Summary: Advanced Care Planning was discussed. The diagnosis, prognosis and goals of care were discussed. Appropriate forms and documentation to accomplish the goals of care were discussed. All questions were answered. The Palliative Care Team will be engaged to assist with completion of any outstanding forms that are needed. Currently he is contemplating hospice services. He does not appear to have firmly decided that yet. Discussed with PCT. They talked with his . She says he was just in the hospital in [place] and the doctors there discussed hospice as well. Prognosis is poor given the lung cancer, severe ischemic cardiomyopathy limiting treatment options. Time Spent (mins): 17
[2019-06-12 13:22] VITALS: BMI 29.0
--- NOTE | 2019-06-12 15:05 | CON ---
DATE OF CONSULTATION: REASON FOR CONSULTATION: CAD. PRIMARY CASE MANAGEMENT ASSISTANT: Hugo Marcial MD HISTORY OF PRESENT ILLNESS: Mr. Em is a 64-year-old gentleman with a history of CAD, cardiomyopathy, status post stent placement in addition to lung cancer, diabetes mellitus, who recently presented with increased shortness of breath. He was recently discharged from an outlying facility and presented with mental status changes and a sodium of 115. His sodium level has improved, so to his mental status. He has no current complaints except for shortness of breath, which is chronic in addition to lower extremity edema. No chest pain or pressure noted. PAST MEDICAL HISTORY: As described above including severe COPD; abdominal aortic aneurysm, status post repair; previous cardiac arrest; PE; and diabetes mellitus. FAMILY HISTORY: Negative for CAD. ALLERGIES: NONE. HOME MEDICATIONS: Include: 1. Lasix. 2. Coreg. 3. Lisinopril. 4. Simvastatin. 5. Lyrica. 6. Glipizide. 7. Metformin. 8. Spiriva. 9. ProAir. 10. Aspirin. REVIEW OF SYSTEMS: A 10-point review of systems is reviewed and is as above, otherwise negative. PHYSICAL EXAMINATION: GENERAL: The patient appears disheveled. VITAL SIGNS: Blood pressure 131/70, pulse 67, temperature afebrile. NEUROLOGIC: The patient is alert and oriented x3 with no focal neurologic deficits. HEENT: Sclerae without icterus. Mouth has moist mucous membranes with normal pallor. NECK: No JVD. Carotid upstroke brisk. No bruits bilaterally. LUNGS: Clear to auscultation with unlabored respirations. BACK: No scoliosis or kyphosis. CARDIAC: Regular rate and rhythm with normal S1 and S2. No S3 or S4 noted. No significant rubs, murmurs, thrills, or gallops noted throughout the precordium. PMI is not displaced. There is no parasternal heave. ABDOMEN: Soft, nontender, nondistended. No peritoneal signs present. No hepatosplenomegaly. No abnormal striae. EXTREMITIES: 2 to 3+ pitting edema noted in his lower extremities. 2+ femoral and 2+ dorsalis pedis pulses. No cyanosis, clubbing. SKIN: No gross abnormalities. PERTINENT LABORATORY DATA: Hemoglobin 12, white blood cell count 11. Sodium 129. Echo with Doppler shows LVEF 15% to 20%, anterior wall, mid apex, and distal septum appear akinetic. IMPRESSION: 1. Ischemic cardiomyopathy. 2. Status post stent placement, dated 05/05/2019, with stent to the left anterior descending artery with a bare-metal stent. 3. Chronic obstructive pulmonary disease. 4. Tobacco abuse. RECOMMENDATIONS: At this point, Mr. Em has improved from a mental status standpoint. He is currently on amiodarone 200 mg p.o. b.i.d. for previous VT. He is also on carvedilol in addition to IV Lasix. There has been some discussion about the hospice care. The patient is deciding on whether to proceed or not. Otherwise, from a CV standpoint, we will continue diuresis. Job ID: [id number]
[2019-06-12] MEDS: Nicotine 21 MG PATCH TOP SCH (15:12)
[2019-06-12] MEDS: Lidocaine 5% Patch TD SCH (15:12)
[2019-06-12] MEDS ORDERED: Atorvastatin Calcium 20 MG TAB PO SCH (21:00)
[2019-06-12] MEDS: Carvedilol 3.125 MG TAB PO SCH (21:21)
[2019-06-13] MEDS: Lidocaine Patch Removal TOP SCH (03:19)
[2019-06-13 03:58] LABS: #Eosinphils 0.1 thou/uL (0.0-0.7); #Lymphocytes 0.7 thou/uL (1.20-3.40); #Neutrophils 9.6 thou/uL (1.40-6.50); %Basophils 0.1 % (0.0-1.0); %Eosinophils 1.1 % (0.0-10.0); %Lymphocytes 6.1 % (21.0-51.0); %Monocytes 8.7 % (0.0-10.0); %Neutrophils 84.2 % (42.0-75.0); Hemoglobin 12.2 g/dL (14.0-18.0); Mean Corpuscular HGB CONC 31.6 g/dL (32.0-36.0); Mean Corpuscular Hemoglobin 29.9 pg (27.0-31.0); Mean Corpuscular Volume 94.7 fL (78.0-98.0); Mean Platelet Volume 8.9 fL (7.4-10.4); Platelet Count 271 thou/uL (130-400); RBC Distribution Width 14.8 % (11.5-14.5); Red Blood Cell (RBC) Count 4.08 mill/uL (4.70-6.10); White Blood Cell (WBC) Count 11.4 thou/uL (4.8-10.8)
[2019-06-13] MEDS: Furosemide 40 MG/4 ML VIAL SLOW IVP SCH ×2 (05:46→13:47)
[2019-06-13] MEDS: HumaLOG 300 UNITS/3 ML VIAL SC PRN (05:52)
[2019-06-13 07:50] VITALS: TEMP 97
[2019-06-13] MEDS ORDERED: Citalopram 20 MG TAB PO SCH (09:00)
[2019-06-13] MEDS: TICAGRELOR 90 MG TABLET PO SCH (09:33)
[2019-06-13] MEDS: Carvedilol 3.125 MG TAB PO SCH (09:33)
[2019-06-13] MEDS: Amiodarone 200 MG TAB PO SCH (09:33)
--- NOTE | 2019-06-13 10:06 | PRG ---
DATE OF SERVICE: 06/13/2019 SUBJECTIVE: Mr. Em is a 64-year-old white male with known multiple medical problems, which includes his CHF/cardiomyopathy, lung cancer, COPD and was seen by the [facility] for his hyponatremia. We felt that he had a dilutional hyponatremia. This has slowly improved with IV Lasix. No new complaints today. Mentation is much improved. Still awaiting for formal hospice care for this patient. OBJECTIVE: VITAL SIGNS: Blood pressure 115/67, heart rate 58, and respiratory rate 18. GENERAL: Awake, alert, comfortable, not in overt distress. SKIN: Adequate turgor. HEENT: Pinkish conjunctivae. Anicteric sclerae. NECK: No neck mass. No carotid bruits. No JVD. CHEST: No deformities. LUNGS: Decreased breath sounds. HEART: Normal sinus rhythm. No murmur. No gallops. No rubs. ABDOMEN: Globular, soft, and nontender. No masses. EXTREMITIES: No edema. No deformities. MEDICATIONS: Medications of June 13, 2019, reviewed. LABORATORY DATA: Laboratories of June 12, 2019; sodium 129, potassium 4.5, chloride 83, carbon dioxide 37, BUN 15, creatinine 0.67, glucose 140, and calcium 9.1. On June 13, 2019; white count 11.4, hemoglobin 12.2. ASSESSMENT AND PLAN: 1. Hyponatremia - secondary to dilutional hyponatremia, much improved over time. Continue free water restriction. Continue current dose of Lasix. We will recheck basic metabolic panel in a.m. No indication for any hypertonic saline. 2. Lung cancer/chronic obstructive pulmonary disease/cardiomyopathy - palliative consult has been done. The patient is being considered for hospice care. Job ID: [id number]
[2019-06-13] MEDS: Lidocaine 5% Patch TD SCH (13:47)
[2019-06-13] MEDS: Nicotine 21 MG PATCH TOP SCH (13:47)
--- NOTE | 2019-06-14 12:55 | DIS ---
DATE OF ADMISSION: 06/09/2019 DATE OF DISCHARGE: 06/13/2019 DISCHARGE DIAGNOSES: 1. Vfill-ln-xrifrml systolic heart failure. 2. Severe hyponatremia. 3. Acute metabolic encephalopathy. 4. Pyasp-dg-jnlozvw respiratory failure with hypoxia. 5. Chronic obstructive pulmonary disease with exacerbation. 6. Diabetes mellitus. 7. Coronary artery disease. 8. Chronic pain. 9. Squamous cell carcinoma of the lung. 10. Hypertension. 11. Peripheral vascular disease. 12. Tobacco abuse. HISTORY OF PRESENT ILLNESS: This patient is a 64-year-old male, who had been diagnosed in April with a tgy-[id number]-iwfp squamous type lung cancer. The patient apparently had just been in the hospital in [place], [place]. Details of that were not clear, but apparently according to his , there were some discussions with him at that time regarding hospice. The patient eventually did discharge to home, where he had progressive shortness of breath and becoming obtunded. He presented to our hospital through the emergency department as a transfer from an outside hospital. There, the patient's workup was notable for severe hyponatremia with evidence of volume overload and congestive heart failure. He was encephalopathic at that time. His made it clear that he was a DNAR. HOSPITAL COURSE: The patient was admitted. He was diuresed. He was seen in consultation by Nephrology, and with progressive diuresis, his sodium actually improved, and his mental status improved with that. Echocardiogram confirmed an ejection fraction of approximately 15% to 20% with anterior wall, apex, mid and distal septal akinesis. There was also dsoo-qr-dacvkeyt mitral regurgitation. As the patient continued to improve with his heart failure, his sodium, and his mental status, Cardiology was consulted; however, the patient has competing problems of severe cardiomyopathy with congestive heart failure and an active lung cancer; therefore, aggressive cardiac intervention including catheterization was precluded by the active lung cancer and the cardiac situation precluded him from any aggressive treatment for the lung cancer itself. With that, Palliative Care Team was having ongoing conversations with the patient's , and ultimately, the patient decided he was going to leave that decision with his , and she opted for going home on hospice. Hospice was consulted, and they accepted the patient into the hospice program in his home. PHYSICAL EXAMINATION: On the day of discharge, VITAL SIGNS: BP 116/61, respirations 17, O2 saturation 98%, pulse 58. GENERAL APPEARANCE: The patient was awake and alert. He was a little sleepy. He would converse. HEART: Regular without murmurs. LUNGS: Diminished, but no significant wheezes or rales were noted. ABDOMEN: Soft, nontender, and nondistended. Positive bowel sounds. No masses. No organomegaly. EXTREMITIES: Had persistent 1+ pitting edema with large bulla on the dorsal surface of both feet. DISPOSITION: The patient is discharged to home on hospice care. ACTIVITY: As tolerated. He will be on no restrictions. DISCHARGE MEDICATIONS: He will continue his home medications; however, these will be adjusted per Hospice planning. FOLLOWUP: He can follow up with [facility]il[facility], and further care will be per the hospice provider team. TIME SPENT: Time spent in discharge activities, greater than 30 minutes. Job ID: [id number]
--- NOTE | 2019-06-14 13:43 | EKG ---
Test Reason : BRADYCARDIA Blood Pressure : / mmHG Vent. Rate : 049 BPM Atrial Rate : 049 BPM P-R Int : 244 ms QRS Dur : 198 ms QT Int : 570 ms P-R-T Axes : 070 101 -40 degrees QTc Int : 514 ms Marked sinus bradycardia with 1st degree A-V block Right bundle branch block Septal infarct , age undetermined T wave abnormality, consider inferior ischemia Abnormal ECG Confirmed by ROSY WELSH ([id number]), editor department NOHELIA BREWER ([id number]) on 06/14/2019 1:42:44 PM Referred By: Confirmed By:ROSY WELSH
== END 2019-06-13 14:30 | disposition hospice, home (50) | DRG 291 ==
LOC: ERS 03:22 → IMCU/EMU 04:17
PROVIDERS: ADMIT Internal Medicine; ATTEND Internal Medicine
DX: I11.0 Hypertensive heart disease with heart failure (principal); J96.21 Acute and chronic respiratory failure with hypoxia; G93.41 Metabolic encephalopathy; E87.1 Hypo-osmolality and hyponatremia; J44.1 Chronic obstructive pulmonary disease with (acute) exacerbation; I50.23 Acute on chronic systolic (congestive) heart failure; Z66 Do not resuscitate; F32.9 Major depressive disorder, single episode, unspecified; F17.210 Nicotine dependence, cigarettes, uncomplicated; I25.10 Atherosclerotic heart disease of native coronary artery without angina pectoris; E87.5 Hyperkalemia; E78.5 Hyperlipidemia, unspecified; I25.5 Ischemic cardiomyopathy; E11.51 Type 2 diabetes mellitus with diabetic peripheral angiopathy without gangrene; Z79.899 Other long term (current) drug therapy; Z86.711 Personal history of pulmonary embolism; I25.2 Old myocardial infarction; Z95.5 Presence of coronary angioplasty implant and graft; Z85.118 Personal history of other malignant neoplasm of bronchus and lung; Z79.82 Long term (current) use of aspirin; Z79.84 Long term (current) use of oral hypoglycemic drugs; Z79.51 Long term (current) use of inhaled steroids
CPT/HCPCS: 36415; 36416; 71045; 74018; 76705; 80048; 80053; 80076; 81001; 82553; 83735; 83880; 84484; 85025; 85027; 87086; 90471; 90732; 93005; 93306; 96374; G0009; J1940; J2270